=== PATIENT | female | born 1940 | race African-American/Black ===

== ENCOUNTER 2016-06-20 18:04 | Emergency (ER) | payer OTHER ==
--- NOTE | 2016-06-20 18:14 | PDOC ---
Rapid Medical Evaluation Chief Complaint: Lightheaded Time Seen by Provider: 06/20/16 18:13 Medical Evaluation: Allergies Allergy/AdvReac Type Severity Reaction Status Date / Time No Known Allergies Allergy Unverified 06/20/16 18:09 03 18:13 I have performed a brief in-person evaluation of this patient. The patient presents with a chief complaint of: dizziness with standing, hx of vertigo and took meclizine yesterday eith mod effect Pertinent physical exam findings: none, bp 185/90, I have ordered the following: cbc, comp mag, ua, ekg, cardiac profile The patient will proceed to the ED for further evaluation. 06/20/16 18:17
[2016-06-20 18:16] VITALS: TEMP 98; BMI 30.1
[2016-06-20 18:41] LABS: EOSINOPHIL 0.6 % (0-4.5); MCH 30.3 pg (25.7-33.7); MCHC 32.7 g/dl (32.0-36.0); MEAN CELL VOLUME 92.5 fl (80-96); MEAN PLT VOLUME 8.5 fl (7.5-11.1); NEUTROPHILS 56.3 % (42.8-82.8); PLATELET COUNT 215 K/MM3 (134-434); RDW 14.8 % (11.6-15.6); WHITE BLOOD COUNT 8.9 K/mm3 (4.0-10.0)
[2016-06-20 19:04] LABS: ANION GAP 7 (8-16); CO2 29 mmol/L (21-32); CREATININE 0.9 mg/dL (0.55-1.02); GLUCOSE,RANDOM 94 mg/dL (74-106); MAGNESIUM 1.8 mg/dL (1.8-2.4); SGOT/AST 16 U/L (15-37); SGPT/ALT 26 U/L (12-78)
[2016-06-20 19:08] LABS: ALK PHOS 73 U/L (45-117); BILIRUBIN,TOTAL 0.4 mg/dL (0.2-1.0); TOT PROT 7.7 g/dl (6.4-8.2); TROPONIN I < 0.02 ng/ml (0.00-0.05)
[2016-06-20] MEDS ORDERED: MECLIZINE HCL 25 MG TABLET (FP) PO ONE (19:30)
[2016-06-20] MEDS ORDERED: METOPROLOL TARTRATE 50 MG TABLET (FP) PO ONE (19:30)
[2016-06-20 19:33] LABS: URINE APPEARANCE CLEAR; URINE BILIRUBIN NEGATIVE (NEGATIVE); URINE BLOOD NEGATIVE (NEGATIVE); URINE COLOR STRAW; URINE GLUCOSE (UA) NEGATIVE (NEGATIVE); URINE KETONE NEGATIVE (NEGATIVE); URINE LEUK ESTERASE NEGATIVE (NEGATIVE); URINE NITRITE NEGATIVE (NEGATIVE); URINE UROBILINOGEN NEGATIVE E.U./dl (0.2-1.0)
[2016-06-20] MEDS ORDERED: METOPROLOL TARTRATE 50 MG TABLET (FP) ONE (19:40)
[2016-06-20] MEDS ORDERED: MECLIZINE HCL 25 MG TABLET (FP) ONE (19:40)
--- NOTE | 2016-06-20 19:47 | PDOC ---
History of Present Illness - General History Source: Patient Exam Limitations: No Limitations - History of Present Illness Initial Comments: 06/20/16 19:48 The patient is a 75 year old female, with a significant past medical history of TIA, seizures, COPD, hypertension, hyperlipidemia, and diabetes, who presents to the emergency department complaining of dizziness since yesterday. The patient reports she woke up at around 06:30 yesterday morning to go to the bathroom, when suddenly she began to feel dizzy. She describes her dizziness as if the room was spinning. She states it took her approximately 20 minutes get up from her seat. The patient reports her dizziness has worsened today, and is exacerbated upon standing or sitting up. She reports decreased appetite since the onset of her symptoms. The patient reports similar episodes in the past. She states she took meclizine yesterday with moderate relief of symptoms. The patient presents to the ED hypertensive, with a bp of 185/90. The patient admits she has not been compliant with her blood pressure medications. The patient reports intermittent neck cramps. The patient denies any chest pain, shortness of breath, diaphoresis, or palpitations. The patient denies any cough , headache, fever, or chills. The patient denies any nausea, vomiting, diarrhea , or constipation. The patient denies any dysuria, hematuria, frequency, or urgency. The patient denies any recent travel or sick contacts. Allergies: None reported. Past Surgical History: Prolapsed bladder, left inner ear surgery Social History: Former smoker(Quit 2015). Denies alcohol or drug use. PCP: Dr. Merino <Cody Bass - Last Filed: 06/20/16 22:18> <Regine Mcintosh - Last Filed: 06/21/16 05:39> - General Chief Complaint: Lightheaded Stated Complaint: NAUSEA/DIZZY Time Seen by Provider: 06/20/16 18:13 Past History <Cody Bass - Last Filed: 06/20/16 22:18> - Past Medical History Anemia: No Asthma: No Cancer: No Cardiac Disorders: No CVA: No COPD: No CHF: No Diabetes: Yes GI Disorders: No Disorders: Yes (PROLAPSED BLADDER) HTN: Yes Hypercholesterolemia: Yes Liver Disease: No Seizures: No Thyroid Disease: No - Surgical History Abdominal Surgery: No Appendectomy: No Cardiac Surgery: No Cholecystectomy: No GI Surgery: Yes (prolapsed bladder) Lung Surgery: No Neurologic Surgery: No Orthopedic Surgery: No - Psycho/Social/Smoking Cessation Hx Anxiety: No Suicidal Ideation: No Smoking History: Never smoked Have you smoked in the past 12 months: No If you are a former smoker, when did you quit?: 1 year Information on smoking cessation initiated: No Hx Alcohol Use: No Drug/Substance Use Hx: No Substance Use Type: Marijuana Hx Substance Use Treatment: No <Regine Mcintosh - Last Filed: 06/21/16 05:39> - Past Medical History Allergies/Adverse Reactions: Allergies Allergy/AdvReac Type Severity Reaction Status Date / Time No Known Allergies Allergy Unverified 06/20/16 18:09 Home Medications: Ambulatory Orders Aspirin [ASA -] 81 mg PO DAILY 10/17/14 Enalapril Maleate [Vasotec -] 20 mg PO DAILY 10/17/14 Hydrochlorothiazide [Hctz -] 25 mg PO DAILY 10/17/14 Metformin HCl [Glucophage] 500 mg PO BID 10/17/14 Metoprolol Succinate [Toprol XL -] 50 mg PO BID 10/17/14 Simvastatin [Zocor -] 40 mg PO DAILY 10/17/14 Levetiracetam [Keppra -] 250 mg PO BID #60 tablet 10/18/15 Meclizine HCl [Antivert -] 32 mg PO QID #28 tablet 06/20/16 Review of Systems - Review of Systems Able to Perform ROS?: Yes Comments:: 06/20/16 19:48 GENERAL/CONSTITUTIONAL: No fever or chills. No weakness. HEAD, EYES, EARS, NOSE AND THROAT: No change in vision. No ear pain or discharge. No sore throat. CARDIOVASCULAR: No chest pain or shortness of breath. RESPIRATORY: No cough, wheezing, or hemoptysis. GASTROINTESTINAL: No nausea, vomiting, diarrhea or constipation. GENITOURINARY: No dysuria, frequency, or change in urination. MUSCULOSKELETAL: +Neck cramps. No joint or muscle swelling or pain. No back pain. SKIN: No rash NEUROLOGIC: +Vertigo, +dizziness. No headache, loss of consciousness, or change in strength/sensation. ENDOCRINE: No increased thirst. No abnormal weight change. HEMATOLOGIC/LYMPHATIC: No anemia, easy bleeding, or history of blood clots. ALLERGIC/IMMUNOLOGIC: No hives or skin allergy. <Cody Bass - Last Filed: 06/20/16 22:18> *Physical Exam - Vital Signs Last Vital Signs Temp Pulse Resp BP Pulse Ox 98.0 F 86 18 185/90 99 06/20/16 18:09 06/20/16 18:09 06/20/16 18:09 06/20/16 18:09 06/20/16 18:38 - Physical Exam Comments: 06/20/16 19:49 GENERAL: Awake, alert, and fully oriented, in no acute distress. Afebrile. Hypertensive. HEAD: No signs of trauma EYES: PERRLA, EOMI, sclera anicteric, conjunctiva clear ENT: Left TM abnormal s/p operation in July 2015. Nares patent, oropharynx clear without exudates. Moist mucosa NECK: Normal ROM, supple, no lymphadenopathy, JVD, or masses LUNGS: Breath sounds equal, clear to auscultation bilaterally. No wheezes, and no crackles HEART: Regular rate and rhythm, normal S1 and S2, no murmurs, rubs or gallops ABDOMEN: Soft, nontender, normoactive bowel sounds. No guarding, no rebound. No masses EXTREMITIES: Normal range of motion, no edema. No clubbing or cyanosis. No cords, erythema, or tenderness NEUROLOGICAL: Cranial nerves II through XII grossly intact. Normal speech, normal gait SKIN: Warm, Dry, normal turgor, no rashes or lesions noted. <Cody Bass - Last Filed: 06/20/16 22:18> - Vital Signs Last Vital Signs Temp Pulse Resp BP Pulse Ox 98.0 F 86 18 185/90 99 06/20/16 18:09 06/20/16 18:09 06/20/16 18:09 06/20/16 18:09 06/20/16 18:38 <Regine Mcintosh - Last Filed: 06/21/16 05:39> Heart Score/ECG Review - ECG Impressions Comment:: 06/20/16 20:42 Vent. Rate: 81 bpm IMPRESSION: Normal sinus rhythm. <Cody Bass - Last Filed: 06/20/16 22:18> ED Treatment Course - LABORATORY CBC & Chemistry Diagram: 06/20/16 18:30 06/20/16 18:30 - ADDITIONAL ORDERS Additional order review: Laboratory Results 06/20/16 18:30 Sodium 141 Potassium 3.6 Chloride 105 Carbon Dioxide 29 Anion Gap 7 L BUN 11 Creatinine 0.9 Creat Clearance w eGFR > 60 Random Glucose 94 D Calcium 9.0 Magnesium 1.8 Total Bilirubin 0.4 D AST 16 D ALT 26 D Alkaline Phosphatase 73 D Creatine Kinase 94 Troponin I < 0.02 Total Protein 7.7 Albumin 4.0 06/20/16 18:30 RBC 4.06 MCV 92.5 MCHC 32.7 RDW 14.8 MPV 8.5 Neutrophils % 56.3 D Lymphocytes % 35.8 D Monocytes % 6.3 Eosinophils % 0.6 Basophils % 1.0 D - RADIOLOGY Radiograph Interpretation: 06/20/16 22:17 EXAM: CXR INTERPRETED BY: Dr. Freedman REVIEWED BY: Dr. Mcintosh IMPRESSION: No significant interval change or acute lung disease is present - Medications Given in the ED: ED Medications Discontinued Medications Generic Name Dose Route Start Last Admin Trade Name Freq PRN Reason Stop Dose Admin Meclizine HCl 50 mg 06/20/16 19:30 06/20/16 19:47 Antivert - PO 06/20/16 19:31 50 mg ONCE ONE Administration Metoprolol Tartrate 50 mg 06/20/16 19:30 06/20/16 19:47 Lopressor - PO 06/20/16 19:31 50 mg ONCE ONE Administration <Cody Bass - Last Filed: 06/20/16 22:18> - LABORATORY CBC & Chemistry Diagram: 06/20/16 18:30 06/20/16 18:30 - ADDITIONAL ORDERS Additional order review: Laboratory Results 06/20/16 06/20/16 18:30 18:30 WBC 8.9 D RBC 4.06 Hgb 12.3 D Hct 37.6 MCV 92.5 MCHC 32.7 RDW 14.8 Plt Count 215 D MPV 8.5 Neutrophils % 56.3 D Lymphocytes % 35.8 D Monocytes % 6.3 Eosinophils % 0.6 Basophils % 1.0 D Sodium 141 Potassium 3.6 Chloride 105 Carbon Dioxide 29 Anion Gap 7 L BUN 11 Creatinine 0.9 Creat Clearance w eGFR > 60 Random Glucose 94 D Calcium 9.0 Magnesium 1.8 Total Bilirubin 0.4 D AST 16 D ALT 26 D Alkaline Phosphatase 73 D Creatine Kinase 94 Troponin I < 0.02 Total Protein 7.7 Albumin 4.0 06/20/16 18:30 RBC 4.06 MCV 92.5 MCHC 32.7 RDW 14.8 MPV 8.5 Neutrophils % 56.3 D Lymphocytes % 35.8 D Monocytes % 6.3 Eosinophils % 0.6 Basophils % 1.0 D <Regine Mcintosh - Last Filed: 06/21/16 05:39> Medical Decision Making - Medical Decision Making 06/21/16 05:38 Pt comes with positional dizziness. She states that this is her vertigo for which she has been seen in the past. SHe is requesting meds to help her nausea and the room spinning. Pt has normal labs and exam and she will be discharged home with PMD and neurology follow up. Pt was given meclizine. to go home with. <Regine Mcintosh - Last Filed: 06/21/16 05:39> *DC/Admit/Observation/Transfer - Attestations Scribe Attestion: 06/20/16 19:49 Documentation prepared by Cody Bass, acting as medical voucher clerk for Regine Mcintosh MD. <Cody Bass - Last Filed: 06/20/16 22:18> - Discharge Dispostion Admit: No <Regine Mcintosh - Last Filed: 06/21/16 05:39> Diagnosis at time of Disposition: Vertigo - Discharge Dispostion Disposition: HOME Condition at time of disposition: Stable - Prescriptions Prescriptions: Meclizine HCl [Antivert -] 32 mg PO QID #28 tablet - Referrals Referrals: Qing Merino MD [Primary Care Provider] - Bear Campos MD [Staff Physician] - Omid Oneill MD [Non Staff, Medical] - - Patient Instructions Printed Discharge Instructions: DI for Vertigo
[2016-06-20 19:54] LABS: URINE PROTEIN 1+ (NEGATIVE)
[2016-06-20] MEDS ORDERED: FLUCONAZOLE 50 MG TABLET PO ONE (19:59)
[2016-06-20] MEDS ORDERED: FLUCONAZOLE 100 MG TABLET (UD) ONE (20:02)
[2016-06-20] MEDS ORDERED: ENALAPRIL MALEATE 10 MG TABLET (FP) PO ONE (20:45)
[2016-06-20 20:46] VITALS: BP 077/82; PULSE 88
[2016-06-20] MEDS ORDERED: ENALAPRIL MALEATE 5 MG TABLET (FP) ONE (20:48)
[2016-06-20 21:17] LABS: URINE RBC <1 /hpf (0-3); URINE WBC <1 /hpf (3-5)
[2016-06-20 21:18] LABS: URINE BACTERIA MANY /hpf (NONE SEEN)
--- NOTE | 2016-06-23 14:57 | EKG ---
Test Reason : Blood Pressure : / mmHG Vent. Rate : 081 BPM Atrial Rate : 081 BPM P-R Int : 146 ms QRS Dur : 088 ms QT Int : 386 ms P-R-T Axes : 052 044 070 degrees QTc Int : 448 ms NORMAL SINUS RHYTHM MINIMAL VOLTAGE CRITERIA FOR LVH, MAY BE NORMAL VARIANT BORDERLINE ECG WHEN COMPARED WITH ECG OF 16-OCT-2015 15:45, NO SIGNIFICANT CHANGE WAS FOUND Confirmed by NABOR CELESTIN MD ([id number]) on 06/23/2016 2:57:22 PM Referred By: Confirmed By:NABOR CELESTIN MD
== END 2016-06-20 20:58 | disposition home or self-care (01) ==
LOC: JER 18:04
DX: H81.10 Benign paroxysmal vertigo, unspecified ear (principal); I10 Essential (primary) hypertension; E11.9 Type 2 diabetes mellitus without complications; Z79.84 Long term (current) use of oral hypoglycemic drugs; E78.00 Pure hypercholesterolemia, unspecified
CPT/HCPCS: 36415; 71010-TC; 80053; 81003; 81015; 82550; 83735; 84484; 85025; 93005; 93010; 99285-25

== ENCOUNTER 2017-06-25 12:27 | Inpatient (IN) | payer OTHER ==
[2017-06-25 12:32] VITALS: BMI 28.1
--- NOTE | 2017-06-25 14:48 | PDOC ---
History of Present Illness - General Chief Complaint: Pain Stated Complaint: ABD PAIN Time Seen by Provider: 06/25/17 13:18 History Source: Patient Exam Limitations: No Limitations - History of Present Illness Travel History: No Initial Comments: 06/25/17 17:36 The patient is a 76 year old female with history of prolapsed bladder and vagina , DM, IBS, s/p hysterectomy who presents to the ED complaining of 1 day of LLQ pain. States she coughed and subsequently developed LLQ pain. Pain radiates to the suprapubic and RLQ. It is waxing and waning, improved with sitting, worse with movement, rated 10/10 at its worst. The patient states her pain is consistent with her prolapse, but pain is worse in severity. No fever or chills. No nausea, vomiting, or diarrhea. No hematuria or dysuria. No abnormal vaginal bleeding or discharge. Past History - Past Medical History Allergies/Adverse Reactions: Allergies Allergy/AdvReac Type Severity Reaction Status Date / Time No Known Allergies Allergy Unverified 06/25/17 12:32 Home Medications: Ambulatory Orders Aspirin 81 mg PO DAILY 06/25/17 Ferrous Sulfate 325 mg PO BID 06/25/17 Ibuprofen 800 mg PO TID 06/25/17 Levetiracetam [Keppra] 250 mg PO BID 06/25/17 Metoprolol Tartrate [Lopressor -] 50 mg PO BID 06/25/17 Naproxen [Naprosyn -] 250 mg PO BID 06/25/17 Anemia: No Asthma: No Cancer: No Cardiac Disorders: No CVA: No COPD: No CHF: No DVT: No Diabetes: Yes GI Disorders: No Disorders: Yes (PROLAPSED BLADDER/VAGINA) HTN: Yes Hypercholesterolemia: Yes Liver Disease: No Seizures: No Thyroid Disease: No - Surgical History Abdominal Surgery: No Appendectomy: No Cardiac Surgery: No Cholecystectomy: No GI Surgery: Yes (prolapsed bladder) Lung Surgery: No Neurologic Surgery: No Orthopedic Surgery: No - Suicide/Smoking/Psychosocial Hx Smoking History: Never smoked Have you smoked in the past 12 months: No If you are a former smoker, when did you quit?: 1 year Information on smoking cessation initiated: No Hx Alcohol Use: No Drug/Substance Use Hx: No Substance Use Type: Marijuana Hx Substance Use Treatment: No Review of Systems - Review of Systems Able to Perform ROS?: Yes Comments:: 06/25/17 17:37 CONSTITUTIONAL: No reported: Fever, Chills, Diaphoresis, Generalized Weakness, Malaise, Loss of Appetite HEENT: No reported: Rhinorrhea, Nasal Congestion, Throat Pain, Throat Swelling, Difficulty Swallowing, Mouth Swelling, Ear Pain, Eye Pain, Visual Changes CARDIOVASCULAR: No reported: Chest Pain, Syncope, Palpitations, Irregular Heart Rate, Lightheadedness, Peripheral Edema RESPIRATORY: No reported: Cough, Shortness of Breath, SOB with Exertion, Orthopnea, Wheezing , Stridor, Hemoptysis GASTROINTESTINAL: Present: abdominal pain No reported: Abdominal Distension, Nausea, Vomiting, Diarrhea, Constipation, Melena, Hematochezia GENITOURINARY: Present: urinary frequency (chronic) No reported: Dysuria, Urgency, Hesitancy, Flank Pain, Genital Pain MUSCULOSKELETAL: No reported: Myalgia, Arthralgia, Joint Swelling, Back pain, Neck Pain SKIN: No reported: Rash, Itching, Pallor HEMEATOLOGIC/IMMUNOLOGIC: No reported: Easy Bleeding, Easy Bruising, Lymphadenopathy, Frequent infections ENDOCRINE: No reported: Unexplained Weight Gain, Unexplained Weight Loss, Heat Intolerance , Cold Intolerance NEUROLOGIC: No reported: Headache, Focal Weakness, Paresthesias, Vertigo, Lightheadedness, Unsteady Gait, Seizure, Mental Status Changes, Incontinence PSYCHIATRIC: No reported: Anxiety, Depression *Physical Exam - Vital Signs Last Vital Signs Temp Pulse Resp BP Pulse Ox 98.1 F 98 H 18 153/71 98 06/25/17 12:29 06/25/17 12:29 06/25/17 12:29 06/25/17 12:29 06/25/17 12:29 - Physical Exam Comments: 06/25/17 17:37 GENERAL: The patient is awake, alert, and fully oriented, Nontoxic - in no acute distress. HEAD: Normocephalic, atraumatic. EYES: extraocular movements intact, sclera anicteric, conjunctiva clear. ENT: Normal voice, Moist mucous membranes. NECK: Normal range of motion, supple LUNGS: Breath sounds equal, clear to auscultation bilaterally. No wheezes, no rhonchi, no rales. HEART: Regular rate and rhythm, without murmur, rub or gallop. ABDOMEN: +Significant LLQ tenderness. Soft, normoactive bowel sounds. No guarding, no rebound.No CVA tenderness. No signficant abdominal deformity or hernia. EXTREMITIES: Normal range of motion, no edema. No clubbing or cyanosis. No cords, erythema, or tenderness. NEUROLOGICAL: No facial assymetry, Normal speech, PSYCH: Normal mood, normal affect. SKIN: Warm, Dry, normal turgor, ED Treatment Course - LABORATORY CBC & Chemistry Diagram: 07/01/17 07:20 07/01/17 07:20 Medical Decision Making - Medical Decision Making 06/25/17 14:47 76y F hx of prolapsed bladder/vagina hx of sling, tried pessery without improvement presents with LLQ pain. The patient presents with abd pain w/o other associated symptmos on exam pt with localized tenderness to llq ddx hernia vs diverticulitis will ck labs, likely ct abd ua to r/o uti morphine fo rpain 06/25/17 16:47 pt signed out to drl. coulter to fu with ct and reassesss the pt *DC/Admit/Observation/Transfer Diagnosis at time of Disposition: Diverticulitis - Discharge Dispostion Condition at time of disposition: Stable - Referrals - Patient Instructions - Post Discharge Activity
[2017-06-25 16:30] LABS: URINE APPEARANCE SLCLOUDY; URINE BILIRUBIN NEGATIVE (NEGATIVE); URINE BLOOD NEGATIVE (NEGATIVE); URINE COLOR YELLOW; URINE GLUCOSE (UA) NEGATIVE (NEGATIVE); URINE KETONE TRACE (NEGATIVE); URINE LEUK ESTERASE NEGATIVE (NEGATIVE); URINE NITRITE POSITIVE (NEGATIVE); URINE PROTEIN NEGATIVE (NEGATIVE); URINE UROBILINOGEN NEGATIVE mg/dL (0.2-1.0)
[2017-06-25] MEDS ORDERED: morphine CARPU-JECT 4 MG/1 ML DISP.SYRIN IVPUSH ONE (17:19)
[2017-06-25 17:24] LABS: BASO % 0.2 % (0-2.0); HEMATOCRIT 36.5 % (32.4-45.2); HEMOGLOBIN 12.2 GM/dL (10.7-15.3); LYMPH % 11.1 % (8-40); MCH 31.8 pg (25.7-33.7); MCHC 33.3 g/dl (32.0-36.0); MEAN CELL VOLUME 95.5 fl (80-96); MEAN PLT VOLUME 9.4 fl (7.5-11.1); MONO % 3.4 % (3.8-10.2); NEUT % 85.3 % (42.8-82.8); PLATELET COUNT 200 K/MM3 (134-434); RBC 3.82 M/mm3 (3.60-5.2); RDW 14.5 % (11.6-15.6); WHITE BLOOD COUNT 13.1 K/mm3 (4.0-10.0)
[2017-06-25 17:25] LABS: ALBUMIN 3.7 g/dl (3.4-5.0); ANION GAP 10 (8-16); BLOOD UREA NITROGEN 10 mg/dL (7-18); CALCIUM 8.8 mg/dL (8.5-10.1); CHLORIDE 106 mmol/L (98-107); CO2 24 mmol/L (21-32); CREATININE 0.8 mg/dL (0.55-1.02); GLUCOSE,RANDOM 86 mg/dL (74-106); POTASSIUM 3.1 mmol/L (3.5-5.1); SGOT/AST 9 U/L (15-37); SGPT/ALT 14 U/L (12-78); SODIUM 140 mmol/L (136-145)
[2017-06-25 17:27] LABS: ALK PHOS 69 U/L (45-117); BILIRUBIN,TOTAL 0.7 mg/dL (0.2-1.0); TOT PROT 7.4 g/dl (6.4-8.2)
[2017-06-25 17:47] LABS: EPI CELLS RARE /HPF (FEW); URINE BACTERIA MANY /hpf (NONE SEEN); URINE MUCUS RARE
[2017-06-25] MEDS ORDERED: CEFTRIAXONE 2 GM in DEXTROSE 5%-WATER - 100 ML IVPB ONE (18:08)
[2017-06-25] MEDS ORDERED: morphine SULFATE 4 MG/ML VIAL ONE (18:30)
[2017-06-25] MEDS ORDERED: CEFTRIAXONE 2 GM/100 ML BAG IVPB ONE (18:30)
[2017-06-25] MEDS ORDERED: SODIUM CHLORIDE 1,000 ML IV STA (21:41)
[2017-06-25] MEDS ORDERED: SODIUM CHLORIDE 1,000 ML IV SCH ×2 (22:15→23:42)
--- NOTE | 2017-06-25 22:21 | HP ---
CHIEF COMPLAINT: abdominal pain PCP: Dr. Frederick ([facility]) HISTORY OF PRESENT ILLNESS: 76 year old female with a hx of diabetes mellitus, prolapsed bladder and vagina , irritable bowel presents for a 1 day hx of abdominal pain. She states that the pain started yesterday after she had a coughing spell in the morning. She felt that her vagina had prolapsed so she sat down to alleviate the problem. The pain persisted for the entire day into the following day. She took ibuprofen for the pain which did not help. This morning the pain persisted and so the patient arrived at the ED for evaluation. In the ED she was at a 10/10 pain on arrival. She received levoquin/flagyl in the ED. She states that the pain has significantly improved since first arriving and is at a 5/10. She states that she is passing gas and had a bowel movement (solid, nonbloody or melenic) in the ED. Additionally she states that she has some urinary retention which she has had for many months. Denies overt fevers, chills, nausea, vomiting , diarrhea, chest pain or shortness of breath. ER course was notable for: (1) WBC 13.1 (2) HR 98 (3) K 3.1 PAST MEDICAL HISTORY: diabetes mellitus, prolapsed bladder and vagina, irritable bowel PAST SURGICAL HISTORY: tubal ligation Social History: Smoking: never Alcohol: none Drugs: marijuana Allergies No Known Allergies Allergy (Unverified 06/25/17 12:32) HOME MEDICATIONS: Home Medications Medication Instructions Recorded Unobtainable [Unobtainable] 06/25/17 REVIEW OF SYSTEMS CONSTITUTIONAL: Absent: fever, chills, diaphoresis, generalized weakness, malaise, loss of appetite, weight change HEENT: Absent: rhinorrhea, nasal congestion, throat pain, throat swelling, difficulty swallowing, mouth swelling, ear pain, eye pain, visual changes CARDIOVASCULAR: Absent: chest pain, syncope, palpitations, irregular heart rate, lightheadedness , peripheral edema RESPIRATORY: Absent: cough, shortness of breath, dyspnea with exertion, orthopnea, wheezing, stridor, hemoptysis GASTROINTESTINAL: abdominal pain Absent: , abdominal distension, nausea, vomiting, diarrhea, constipation, melena , hematochezia GENITOURINARY: Absent: dysuria, frequency, urgency, hesitancy, hematuria, flank pain, genital pain MUSCULOSKELETAL: Absent: myalgia, arthralgia, joint swelling, back pain, neck pain SKIN: Absent: rash, itching, pallor HEMATOLOGIC/IMMUNOLOGIC: Absent: easy bleeding, easy bruising, lymphadenopathy, frequent infections ENDOCRINE: Absent: unexplained weight gain, unexplained weight loss, heat intolerance, cold intolerance NEUROLOGIC: Absent: headache, focal weakness or paresthesias, dizziness, unsteady gait, seizure, mental status changes, bladder or bowel incontinence PSYCHIATRIC: Absent: anxiety, depression, suicidal or homicidal ideation, hallucinations. PHYSICAL EXAMINATION Vital Signs - 24 hr 06/25/17 12:29 Temperature 98.1 F Pulse Rate 98 H Respiratory 18 Rate Blood Pressure 153/71 O2 Sat by Pulse 98 Oximetry (%) GENERAL: A&O x 3, no acute distress CARDS: Systolic murmur appreciated in 2nd R intercostal space LUNGS: CTA, no wheezes ABDOMEN: soft, tender to palpation in LUQ and LLQ, diminished bowel sounds NEURO: CN II-XII intact, no focal deficits EXTREMITIES: pulses 2+ b/l, motor strength 5/5, no peripheral edema Laboratory Results - last 24 hr 06/25/17 06/25/17 06/25/17 16:16 16:33 16:33 WBC 13.1 H D RBC 3.82 Hgb 12.2 Hct 36.5 MCV 95.5 MCH 31.8 MCHC 33.3 RDW 14.5 Plt Count 200 MPV 9.4 D Neutrophils % 85.3 H D Lymphocytes % 11.1 D Monocytes % 3.4 L Eosinophils % 0.0 D Basophils % 0.2 Sodium 140 Potassium 3.1 L Chloride 106 Carbon Dioxide 24 Anion Gap 10 BUN 10 Creatinine 0.8 Creat Clearance w eGFR > 60 Random Glucose 86 Calcium 8.8 Total Bilirubin 0.7 D AST 9 L ALT 14 Alkaline Phosphatase 69 Total Protein 7.4 Albumin 3.7 Urine Color Yellow Urine Appearance Slcloudy Urine pH 5.0 D Ur Specific [place] 1.009 Urine Protein Negative Urine Glucose (UA) Negative Urine Ketones Trace H Urine Blood Negative Urine Nitrite Positive Urine Bilirubin Negative Urine Urobilinogen Negative Ur Leukocyte Esterase Negative Urine WBC (Auto) 1 Urine RBC (Auto) None Ur Epithelial Cells Rare Urine Bacteria Many Urine Mucus Rare IMAGING: CT Abd/Pelvis (06/25): Soft tissue stranding suggestive of edema is seen interposed between the descending colon and abdominal wall centered at the level of the abdominopelvic junction. Several associated punctate foci of extraluminal air/gas are noted suggestive of focal perforation. Note is also made of apparent concentric wall edema involving a jejunal bowel loop over length of approximately 10 cm adjacent to the previously described pericolonic pathology. There is associated mild proximal small bowel obstruction. ASSESSMENT/PLAN: 76 year old female with a history of DM, IBS, hysterectomy, prolapsed bladder/ vagina presented to the hospital with LLQ abdominal pain and admitted for treatment of perforated diverticulitis #Sepsis 2/2 Perforated Diverticulitis: improved compared to initial presentation , elevated WBC/tachycardia -NPO for now, will get surgery to evaluate in the AM -surgical consult Dr. Lang appreciated; surgeon was contacted and recommended to keep NPO and continue abx -consider gastroenterology consultation in the morning -draw blood cultures and f/u in 24 hours -Levoquin 750 QD -Flagyl 500 Q6h -lactate level, trend if elevated -IVF hydration @ 100cc/hr w/ NS #Hypokalemia: potassium 3.1 -Kdur 40meqs -recheck potassium in AM -check magnesium #Urinary Retention: patient reports urinary retention and self-catheterizes -insert rogers catheter #Diabetes -BGMs -ISS #Hypertension -continue metoprolol 50mg PO BID #FEN -IV NS @ 100cc/hr -replete potassium, recheck labs in AM, check magnesium -NPO for surgical evaluation in AM #Prophylaxis -heparin 5000 subq TID #Disposition -admit to med-surg Visit type - Emergency Visit Emergency Visit: Yes ED Registration Date: 06/25/17 Care time: The patient presented to the Emergency Department on the above date and was hospitalized for further evaluation of their emergent condition. - New Patient This patient is new to me today: Yes Date on this admission: 06/26/17 - Critical Care Critical Care patient: No Hospitalist Screening - Colonoscopy Questionnaire Colonoscopy Questionnaire: Colonoscopy Questionnaire - Patient: 50 - 75 years old and never had a screening colonoscopy: Unknown History of colon or rectal polyps, or CA: Unknown History of IBD, Crohn's disease or UC: Unknown History of abdominal radiation therapy as a child: Unknown - Relative: 1 with colon or rectal CA, or polyps at age 60 or younger: Unknown Colon or rectal CA diagnosed at age 45 or younger: Unknown Multiple relatives with colon or rectal CA: Unknown - Outcome: Screening Result: Negative Screen
--- NOTE | 2017-06-25 22:27 | PDOC ---
*Physical Exam - Vital Signs Last Vital Signs Temp Pulse Resp BP Pulse Ox 98.1 F 98 H 18 153/71 98 06/25/17 12:29 06/25/17 12:29 06/25/17 12:29 06/25/17 12:29 06/25/17 12:29 - Physical Exam Comments: 06/25/17 22:22 Gen: WA, NAD Pulm: CTAB CV: RRR, no MRG Abd: +LLQ ttp, no rebound or guarding Ext: FROM, ambulatory, 2+ pulses Skin: warm, WP ED Treatment Course - LABORATORY CBC & Chemistry Diagram: 06/25/17 16:33 06/25/17 16:33 - ADDITIONAL ORDERS Additional order review: Laboratory Results 06/25/17 06/25/17 16:33 16:16 Sodium 140 Potassium 3.1 L Chloride 106 Carbon Dioxide 24 Anion Gap 10 BUN 10 Creatinine 0.8 Creat Clearance w eGFR > 60 Random Glucose 86 Calcium 8.8 Total Bilirubin 0.7 D AST 9 L ALT 14 Alkaline Phosphatase 69 Total Protein 7.4 Albumin 3.7 Urine Color Yellow Urine Appearance Slcloudy Urine pH 5.0 D Ur Specific Newman 1.009 Urine Protein Negative Urine Glucose (UA) Negative Urine Ketones Trace H Urine Blood Negative Urine Nitrite Positive Urine Bilirubin Negative Urine Urobilinogen Negative Ur Leukocyte Esterase Negative Urine WBC (Auto) 1 Urine RBC (Auto) None Ur Epithelial Cells Rare Urine Bacteria Many Urine Mucus Rare 06/25/17 16:33 RBC 3.82 MCV 95.5 MCHC 33.3 RDW 14.5 MPV 9.4 D Neutrophils % 85.3 H D Lymphocytes % 11.1 D Monocytes % 3.4 L Eosinophils % 0.0 D Basophils % 0.2 - Medications Given in the ED: ED Medications Discontinued Medications Generic Name Dose Route Start Last Admin Trade Name Freq PRN Reason Stop Dose Admin Ceftriaxone Sodium 2 gm/ 100 mls @ 200 mls/hr 06/25/17 18:08 06/25/17 18:37 Dextrose IVPB 06/25/17 18:37 200 mls/hr ONCE ONE Administration Morphine Sulfate 4 mg 06/25/17 17:19 06/25/17 18:37 Morphine Injection - IVPUSH 06/25/17 17:20 Not Given ONCE ONE Medical Decision Making - Medical Decision Making 06/25/17 22:23 Received care on patient from Dr. He at 1700. Patient presents to the emergency department with 1 day of left lower quadrant pain, was pending CT scan. Labs remarkable for the leukocytosis to 13 and hypokalemia to 3.1. Urinalysis also nitrite positive for which the patient got ceftriaxone. On reassessment, patient continues to have left lower quadrant tenderness to palpation, declined morphine for pain control and requests Tylenol. CT scan resulted with focal perforated diverticulitis with mild SBO. Case discussed with Dr. Lang, she recommends the patient remain NPO and she will see her in the morning. Levaquin and Flagyl have been ordered for the patient as well as fluids. Patient has been admitted to for further mgmt. Case discussed in detail with admitting physician including history, physical exam and ancillary studies. Admitting physician has assumed care for the patient, will follow all pending diagnostics and will complete the evaluation and treatment. *DC/Admit/Observation/Transfer Diagnosis at time of Disposition: Diverticulitis - Discharge Dispostion Condition at time of disposition: Stable Admit: Yes - Referrals - Patient Instructions - Post Discharge Activity - Attestations Physician Attestion: 06/25/17 22:27 I, Dr. Tere Cotter MD, attest that this document has been prepared under my direction and personally reviewed by me in its entirety. I further attest, that it accurately reflects all work, treatment, procedures and medical decision -making performed by me.
[2017-06-26] MEDS ORDERED: METOPROLOL TARTRATE 50 MG TABLET (FP) ONE (00:57)
[2017-06-26] MEDS ORDERED: levETIRAcetam 500 MG TABLET (FP) PO ONE (00:57)
[2017-06-26] MEDS ORDERED: FERROUS SO4 325 MG TABLET (FP) ONE (00:58)
[2017-06-26] MEDS: levETIRAcetam 250 MG TABLET (FP) PO SCH ×3 (01:07→21:04)
[2017-06-26] MEDS: KCL 10 MEQ IVPB 10 MEQ/100 ML INFUS.BAG IVPB SCH ×2 (01:07→03:21)
[2017-06-26] MEDS: FERROUS SO4 325 MG TABLET (FP) PO SCH ×3 (01:07→21:04)
[2017-06-26] MEDS: METOPROLOL TARTRATE 50 MG TABLET (FP) PO SCH ×3 (01:07→21:04)
[2017-06-26] MEDS ORDERED: POTASSIUM CHLORIDE TABS 20 MEQ TABLET.ER (FP) PO ONE ×2 (02:15→03:17)
--- NOTE | 2017-06-26 03:38 | PN ---
Teaching Attending Note Name of Resident: Eduard Salinas ATTENDING PHYSICIAN STATEMENT I saw and evaluated the patient. I reviewed the resident's note and discussed the case with the resident. I agree with the resident's findings and plan as documented. SUBJECTIVE: 76F with pmh prolapse bladder prolapse vagina DM presents with worsening LLQ pain OBJECTIVE: Resting, non toxic appearing Abd: soft, tenderness diffusely worst in in the LLQ, with guarding CTAP: focal perforation of descending colon with proximal mild SBO, mild bladder distention WBC 13 K 3.1 ASSESSMENT AND PLAN: 76F with focal perforation divurtculitis, Surgery has been consulted and recommended conservative maangement and re-evaluation in the AM keep NPO IV abx IVF replete potassium rogers catheter for urinary retention careful monitoring - if she demonstrates any sign of deterioration will re- evaluate with surgery for more urgent intervention
[2017-06-26] MEDS ORDERED: INSULIN SLIDING SCALE (NOVOLOG) 1 VIAL SQ SCH (07:00)
[2017-06-26 08:40] LABS: HEMATOCRIT 36.8 % (32.4-45.2); HEMOGLOBIN 11.9 GM/dL (10.7-15.3); MCH 30.9 pg (25.7-33.7); MCHC 32.4 g/dl (32.0-36.0); MEAN CELL VOLUME 95.4 fl (80-96); MEAN PLT VOLUME 8.8 fl (7.5-11.1); PLATELET COUNT 201 K/MM3 (134-434); RBC 3.85 M/mm3 (3.60-5.2); RDW 14.4 % (11.6-15.6); WHITE BLOOD COUNT 12.2 K/mm3 (4.0-10.0)
[2017-06-26 08:51] LABS: INR 1.43 (0.82-1.09); PROTHROMBIN TIME (PATIENT) 16.2 SEC (9.98-11.88)
[2017-06-26 09:03] LABS: ALBUMIN 3.3 g/dl (3.4-5.0); ANION GAP 9 (8-16); BILIRUBIN,TOTAL 0.7 mg/dL (0.2-1.0); BLOOD UREA NITROGEN 10 mg/dL (7-18); CALCIUM 8.4 mg/dL (8.5-10.1); CHLORIDE 106 mmol/L (98-107); CO2 26 mmol/L (21-32); CREATININE 0.8 mg/dL (0.55-1.02); GLUCOSE,RANDOM 93 mg/dL (74-106); MAGNESIUM 1.9 mg/dL (1.8-2.4); PHOSPHOROUS 2.9 mg/dL (2.5-4.9); POTASSIUM 3.7 mmol/L (3.5-5.1); SGOT/AST 9 U/L (15-37); SGPT/ALT 11 U/L (12-78); SODIUM 141 mmol/L (136-145); TOT PROT 6.9 g/dl (6.4-8.2)
[2017-06-26 09:04] LABS: ALK PHOS 69 U/L (45-117)
[2017-06-26] MEDS ORDERED: PT OWN MED DRAWER 7, Y5N ONE ×2 (09:28→15:34)
[2017-06-26] MEDS ORDERED: ASPIRIN 81 MG CHEWABLE TABLETS PO SCH (10:00)
[2017-06-26] MEDS ORDERED: HYDROCHLOROTHIAZIDE 25 MG TABLET (FP) PO SCH (10:00)
--- NOTE | 2017-06-26 10:36 | EKG ---
Test Reason : Blood Pressure : / mmHG Vent. Rate : 103 BPM Atrial Rate : 103 BPM P-R Int : 146 ms QRS Dur : 092 ms QT Int : 346 ms P-R-T Axes : 050 048 094 degrees QTc Int : 453 ms SINUS TACHYCARDIA BIATRIAL ENLARGEMENT LEFT VENTRICULAR HYPERTROPHY WITH REPOLARIZATION ABNORMALITY NONSPECIFIC ST ABNORMALITY Confirmed by GRECIA PITTS MD ([id number]) on 06/26/2017 10:36:22 AM Referred By: Confirmed By:GRECIA PITTS MD
[2017-06-26] MEDS: POTASSIUM CHLORIDE 10 MEQ in DEXTROSE 5%-NORMAL SALINE 1,000 ML IVPB SCH ×3 (10:43→23:04)
[2017-06-26] MEDS ORDERED: ENOXAPARIN NA (PORCINE) 30 MG/0.3 ML DISP.SYRIN SQ SCH (10:45)
--- NOTE | 2017-06-26 10:47 | CONSULT ---
Consult Consult Specialty:: General Surgery Referred by:: Tere Cotter Reason for Consultation:: diverticulitis with SB inflammation and mild SBO - History of Present Illness Chief Complaint: LLQ pain History of Present Illness: 76yo F with HTN, HLD, DM, h/o pelvic organ prolapse s/p hysterectomy and AP repair 2006, redo AP repair with mesh 2007, recurrent cystocele repair with partial removal of vaginal mesh and autologous rectus fascial graft 10/25 with SP tube x 1wk postop, managing recurrent prolapse conservatively, has had some LLQ pain since last week, but thought it was mainly her prolapse discomfort. She had an appt for learning urinary self-cathing Wed and was going to speak with her doctor about the pain, but they cancelled the appointment and rescheduled for next week. Then she coughed while standing at home (usually sits when able to because of prolapse), and felt significant LLQ pain, which did not improve with ibuprofen, and came to hospital. In ER, she was afebrile, with wbc 13, and CT showed an area of inflammation just under LLQ abdominal wall with few locules of air suggestive of microperforation, inflamed/thickened jejunal loop adjacent with associated proximal mild SBO with dilated, fluid- filled SB loops. Colon wall not markedly thickened. Bladder very distended. She was started on IVF and antibiotics, admitted to medicine, had Jeff placed, K+ repleted and labs repeated this am. She reports her pain is not present unless she palpates the area, just somewhat uncomfortable. It is ammonia still operator though. She has been up to the bathroom and having frequent stools here, getting more loose from soft, formed. No nausea or vomiting. Surgery is consulted to evaluate. - History Source History Provided By: Patient, Medical Record Limitations to Obtaining History: No Limitations - Past Medical History RETAIL BUYER: Yes: Seizure (last year - was told had one and didn't know (on Keppra but only takes daily)), Vertigo Cardio/Vascular: Yes: HTN, Hyperlipdemia Pulmonary: Yes: COPD (former smoker (pt denies having)) Gastrointestinal: Yes: Constipation, Diverticulosis, Irritable Bowel Disease Renal/: Yes: Other (urinary retention and bladder prolapse) Reproductive: Yes: Postmenopausal, Other (pelvic organ prolapse (s/p hyst and mult repairs)) ...: No Musculoskeletal: Yes: Chronic low back pain Endocrine: Yes: Diabetes Mellitus - Past Surgical History Past Surgical History: Yes: Colonoscopy (last ~5 yrs ago), Hysterectomy (2006 with cystocele repair), Tubal Ligation () Additional Surgical History: L ear surgery; (all done vaginally) hysterectomy with AP repair [facility] 2006 (mesh litigation); redo AP repair with mesh 2007; 2014 (spinal anes, Dr. Agarwal) cystocele anterior repair with autologous rectus fascial harvest & graft, removal of portion of vaginal mesh, cystoscopy, suprapubic catheter (out 1 week later) - Alcohol/Substance Use Hx Alcohol Use: Yes (wine occas; used to drink more heavily weekends) History of Substance Use: reports: Marijuana (daily since teens) - Smoking History Smoking history: Former smoker Have you smoked in the past 12 months: No Aproximately how many cigarettes per day: 6 (~20 pk-yr hx) If you are a former smoker, when did you quit?: 07/2014 - Social History ADL: Independent Home Medications - Allergies Allergies/Adverse Reactions: Allergies Allergy/AdvReac Type Severity Reaction Status Date / Time No Known Allergies Allergy Unverified 06/25/17 12:32 - Home Medications Home Medications: Ambulatory Orders Aspirin 81 mg PO DAILY 06/25/17 Enalapril Maleate [Vasotec] 20 mg PO DAILY 06/25/17 Ferrous Sulfate 325 mg PO BID 06/25/17 Gabapentin 100 mg PO HS 06/25/17 Hydrochlorothiazide [Hctz -] 25 mg PO DAILY 06/25/17 Ibuprofen 800 mg PO TID 06/25/17 Levetiracetam [Keppra] 250 mg PO BID 06/25/17 Meclizine HCl 25 mg PO Q8H 06/25/17 Metformin HCl 500 mg PO BID 06/25/17 Metoprolol Tartrate [Lopressor -] 50 mg PO BID 06/25/17 Naproxen [Naprosyn -] 250 mg PO BID 06/25/17 Simvastatin 40 mg PO DAILY 06/25/17 Home Medications (free text): per pt, doctor took her OFF METFORMIN, simvastatin and ENALAPRIL in January; she does not take gabapentin or meclizine , takes levetiracetam DAILY not bid; only uses ibuprofen prn sometimes once a day OR naproxen Family Disease History - Family Disease History Family Disease History: CA: Father (unknown type), Mother (skin, of at 82) Other Family History: grandson had renal transplant; granddaughter had ovarian CA at 24 Review of Systems - Review of Systems Constitutional: denies: Chills, Fever, Loss of Appetite Eyes: reports: Other (wears bifocals). denies: Recent Change in Vision HENT: reports: Hearing Loss (left ear, has hearing aid but doesn't use if often) . denies: Difficult Swallowing, Throat Pain Neck: reports: Swollen Glands (occasionally). denies: Tenderness Cardiovascular: reports: Chest Pain (occasionally has twinge (seconds) of pain across chest with tingling, goes away very quickly), Edema (ankle/leg swelling sometimes). denies: Palpitations Respiratory: reports: Cough (few weeks ago). denies: SOB Gastrointestinal: reports: Abdominal Pain (with hpi), Constipation, Indigestion (heartburn frequently (uses club soda, not medications)), Other (fecal incontinence at times). denies: Diarrhea, Nausea, Vomiting Genitourinary: reports: Frequency, Incontinence, Urgency, Other (urinary retention, bladder prolapse). denies: Burning, Dysuria Musculoskeletal: reports: Back Pain. denies: Joint Pain, Muscle Pain Integumentary: denies: Change in Color, Rash Neurological: reports: Headache (occ in mornings), Seizure (last/only was last year (didn't know)). denies: Dizziness (none recently) Physical Exam Vital Signs: Vital Signs Temperature 99 F 06/26/17 06:43 Pulse Rate 92 H 06/26/17 06:43 Respiratory Rate 18 06/26/17 06:43 Blood Pressure 142/61 06/26/17 06:43 O2 Sat by Pulse Oximetry (%) 96 06/26/17 05:09 Constitutional: Yes: Well Nourished, No Distress, Calm Eyes: Yes: Conjunctiva Clear, EOM Intact HENT: Yes: Atraumatic, Normocephalic Neck: Yes: Supple, Trachea Midline Cardiovascular: Yes: Tachycardia (mild). No: Pulse Irregular, Murmur Respiratory: Yes: Regular, CTA Bilaterally Gastrointestinal: Yes: Soft, Tenderness (LLQ without guarding but very tender, less LUQ and RLQ, mild epigastric, periumbilical, not really RUQ), Tenderness, Epigastrium (mild). No: Distention ...Rectal Exam: Yes: Deferred Renal/: Yes: Jeff Present. No: CVA Tenderness - Left, CVA Tenderness - Right , Hematuria Musculoskeletal: No: Joint Stiffness, Joint Swelling Extremities: No: Cool, Cyanosis Edema: No Peripheral Pulses WNL: No (pedal pulses not clearly palpable, ant tibial present , radial normal) Integumentary: No: Jaundice, Rash Neurological: Yes: Alert, Oriented Psychiatric: Yes: Alert, Oriented Labs: CBC, BMP 06/26/17 08:00 06/26/17 08:00 CMP Sodium 141 mmol/L (136-145) 06/26/17 08:00 Potassium 3.7 mmol/L (3.5-5.1) 06/26/17 08:00 Chloride 106 mmol/L (98-107) 06/26/17 08:00 Carbon Dioxide 26 mmol/L (21-32) 06/26/17 08:00 Anion Gap 9 (8-16) 06/26/17 08:00 BUN 10 mg/dL (7-18) 06/26/17 08:00 Creatinine 0.8 mg/dL (0.55-1.02) 06/26/17 08:00 Creat Clearance w eGFR > 60 (>60) 06/26/17 08:00 POC Glucometer 111 UNITS (80-120) 06/26/17 06:54 Random Glucose 93 mg/dL (74-106) 06/26/17 08:00 Lactic Acid 1.2 mmol/L (0.0-2.0) 06/25/17 21:44 Calcium 8.4 mg/dL (8.5-10.1) L 06/26/17 08:00 Phosphorus 2.9 mg/dL (2.5-4.9) 06/26/17 08:00 Magnesium 1.9 mg/dL (1.8-2.4) 06/26/17 08:00 Total Bilirubin 0.7 mg/dL (0.2-1.0) 06/26/17 08:00 AST 9 U/L (15-37) L 06/26/17 08:00 ALT 11 U/L (12-78) L 06/26/17 08:00 Alkaline Phosphatase 69 U/L (45-117) 06/26/17 08:00 Total Protein 6.9 g/dl (6.4-8.2) 06/26/17 08:00 Albumin 3.3 g/dl (3.4-5.0) L 06/26/17 08:00 wbc down from 13 K up from 3.1 INR, PTT INR 1.43 (0.82-1.09) H D 06/26/17 08:00 Urine Test Results Urine Color Yellow 06/25/17 16:16 Urine Appearance Slcloudy 06/25/17 16:16 Urine pH 5.0 (5.0-8.0) D 06/25/17 16:16 Ur Specific Clayton 1.009 (1.001-1.035) 06/25/17 16:16 Urine Protein Negative (NEGATIVE) 06/25/17 16:16 Urine Glucose (UA) Negative (NEGATIVE) 06/25/17 16:16 Urine Ketones Trace (NEGATIVE) H 06/25/17 16:16 Urine Blood Negative (NEGATIVE) 06/25/17 16:16 Urine Nitrite Positive (NEGATIVE) 06/25/17 16:16 Urine Bilirubin Negative (NEGATIVE) 06/25/17 16:16 Ur Leukocyte Esterase Negative (NEGATIVE) 06/25/17 16:16 Ur Epithelial Cells Rare /HPF (FEW) 06/25/17 16:16 Urine Bacteria Many /hpf (NONE SEEN) 06/25/17 16:16 Urine Mucus Rare 06/25/17 16:16 Imaging - Results Cat Scan: Report Reviewed, Image Reviewed (images personally reviewed; diverticulosis with locules suggestive of microperforation adjacent to inflamed jejunal loop at LLQ abdominal wall with inflammation of wall as well, proximal SB mildly dilated and fluid-filled, no gross free air, very distended bladder) Problem List - Problems (1) Diverticulitis of colon with perforation Assessment/Plan: presumed microperforation of diverticulosis with adjacent inflammation of SB and abdominal wall treating with antibiotics as diverticulitis with contained microperf tender but with minimal pain continue NPO/IVF - would hold asa and diuretic for now GI/DVT prophylaxis Discussed with patient and son-in-law at bedside and daughter by phone that plan for now is as above, serial exams, and trending labs. If sudden or significant change in pain or tenderness, would have to consider urgent reimaging and/or surgery, but with patient's very significant pelvic surgical history, might be advisable (if surgery were not emergent) to have her transferred to a tertiary center for any operative intervention. They stated they would likely choose [place] if needed. Will plan to reimage with CT in several days, pending clinical course and exams to reevaluate for resolution of inflammatory changes and guide transition to oral antibiotics for discharge planning when appropriate. Will follow with you. Code(s): K57.20 - DVTRCLI OF LG INT W PERFORATION AND ABSCESS W/O BLEEDING Qualifiers: Diverticulitis bleeding: without bleeding Qualified Code(s): K57.20 - Diverticulitis of large intestine with perforation and abscess without bleeding (2) Other partial intestinal obstruction Assessment/Plan: mild SBO secondary to jejunal inflammation adjacent to microperf at LLQ pt reports now having multiple BMs, getting looser no obstructive symptoms clinically monitor for bowel function, n/v or acute distention Code(s): K56.690 - OTHER PARTIAL INTESTINAL OBSTRUCTION (3) Diabetes mellitus type 2, controlled, without complications Assessment/Plan: FS with SSI while NPO sugars below 100 on labs D5 1/2 NS + 20 mEq KCl ok for fluids Code(s): E11.9 - TYPE 2 DIABETES MELLITUS WITHOUT COMPLICATIONS Qualifiers: Diabetes mellitus alf insulin use: without intermodal dispatcher use Qualified Code(s): E11.9 - Type 2 diabetes mellitus without complications (4) Hypertension Assessment/Plan: continue metoprolol with sips would hold asa and hctz for now Code(s): I10 - ESSENTIAL (PRIMARY) HYPERTENSION Qualifiers: Hypertension type: essential hypertension Qualified Code(s): I10 - Essential (primary) hypertension (5) Cystocele Assessment/Plan: recurrent, s/p multiple repairs with mesh and partial mesh removal/fascial graft pt manages conservatively at home but has urinary retention plans to learn self-catheterization as outpatient, has appt for next week/can reschedule Jeff for now until reimaging completed to maintain bladder decompression Code(s): N81.10 - CYSTOCELE, UNSPECIFIED Qualifiers: Cystocele location: midline Qualified Code(s): N81.11 - Cystocele, midline (6) Seizure Assessment/Plan: check Keppra level continue home med, pt understands she may need to take bid as prescribed at home Code(s): R56.9 - UNSPECIFIED CONVULSIONS
[2017-06-26] MEDS: INSULIN SLIDING SCALE (NOVOLOG) 1 VIAL SQ SCH ×2 (12:09→17:33)
[2017-06-26] MEDS: FAMOTIDINE 20 MG/50 ML IVPB 20 MG/50 ML MG IVPB SCH ×3 (12:43→21:53)
[2017-06-26] MEDS ORDERED: D5-1/2NS+20 MEQ KCL - 20 MEQ/1,000 ML INFUS.BAG IV SCH (14:30)
[2017-06-26] MEDS: ENOXAPARIN NA (PORCINE) 40 MG/0.4 ML DISP.SYRIN SQ SCH (15:49)
--- NOTE | 2017-06-26 17:50 | PN ---
Teaching Attending Note Name of Resident: Amber Julian ATTENDING PHYSICIAN STATEMENT I saw and evaluated the patient. I reviewed the resident's note and discussed the case with the resident. I agree with the resident's findings and plan as documented with exceptions below. SUBJECTIVE: patient seen and examined, left sided abdominal pain improved, Multiple loose stools today, no other complaints. OBJECTIVE: Vital Signs Period Temp Pulse Resp BP Sys/Armendariz Pulse Ox Last 24 Hr 97.7 F-99.3 F 89-98 18-20 125-142/54-78 96-99 Intake & Output 06/23/17 06/24/17 06/25/17 06/26/17 23:59 23:59 23:59 23:59 Intake Total 1100 Output Total 1800 Balance -700 Weight 180 lb 173 lb 12.8 oz General: lying in bed in no acute distress Abdomen: soft, LLQ tenderness, also mild tenderness in RLQ, per-umbilical region , no voluntary or involuntary guarding or rigidity, positive bowel sounds Home Medication List Medication Instructions Recorded Confirmed Type Aspirin 81 mg PO DAILY 06/25/17 06/25/17 History Ferrous Sulfate 325 mg PO BID 06/25/17 06/25/17 History Gabapentin 100 mg PO HS 06/25/17 06/25/17 History Hydrochlorothiazide [Hctz -] 25 mg PO DAILY 06/25/17 06/25/17 History Ibuprofen 800 mg PO TID 06/25/17 06/25/17 History Levetiracetam [Keppra] 250 mg PO BID 06/25/17 06/25/17 History Metoprolol Tartrate [Lopressor -] 50 mg PO BID 06/25/17 06/25/17 History Naproxen [Naprosyn -] 250 mg PO BID 06/25/17 06/25/17 History Active Medications Generic Name Dose Route Start Last Admin Trade Name Freq PRN Reason Stop Dose Admin Enoxaparin Sodium 40 mg 06/26/17 15:30 06/26/17 15:49 Lovenox - SQ 40 mg DAILY ERON Administration Ferrous Sulfate 325 mg 06/25/17 23:15 06/26/17 09:33 Feosol - PO 325 mg BID ERON Administration Levofloxacin 750 mg in 150 mls @ 100 mls/hr 06/26/17 22:00 Levaquin 750 Mg Premixed Ivpb - IVPB HS ERON Metronidazole 500 mg in 100 mls @ 100 mls/hr 06/26/17 03:00 06/26/17 15:49 Flagyl 500mg Premixed Ivpb - IVPB 100 mls/hr Q6H-IV ERON Administration Potassium Chloride 10 meq/ 1,005 mls @ 100 mls/hr 06/26/17 08:45 06/26/17 17: 45 Dextrose/Sodium Chloride IVPB Not Given Q10H ERON Famotidine/Sodium Chloride 20 mg in 50 mls @ 100 mls/hr 06/26/17 12:15 12:43 Pepcid 20 Mg Premixed Ivpb - IVPB 100 mls/hr BID ERON Administration Insulin Aspart 1 vial 06/26/17 12:00 06/26/17 17:33 Novolog Vial Sliding Scale - SQ Not Given Q6HPO [facility] Protocol Levetiracetam 250 mg 06/25/17 23:15 06/26/17 09:33 Keppra - PO 250 mg BID ERON Administration Metoprolol Tartrate 50 mg 06/25/17 23:15 06/26/17 09:33 Lopressor - PO 50 mg BID ERON Administration Laboratory Results - last 24 hr 06/25/17 06/25/17 06/26/17 16:33 21:44 06:54 WBC RBC Hgb Hct MCV MCH MCHC RDW Plt Count MPV PT with INR INR Sodium 140 Potassium 3.1 L Chloride 106 Carbon Dioxide 24 Anion Gap 10 BUN 10 Creatinine 0.8 Creat Clearance w eGFR > 60 POC Glucometer 111 Random Glucose 86 Lactic Acid 1.2 Calcium 8.8 Phosphorus Magnesium Total Bilirubin 0.7 D AST 9 L ALT 14 Alkaline Phosphatase 69 Total Protein 7.4 Albumin 3.7 Blood Type Antibody Screen 06/26/17 06/26/17 06/26/17 08:00 08:00 08:00 WBC 12.2 H RBC 3.85 Hgb 11.9 Hct 36.8 MCV 95.4 MCH 30.9 MCHC 32.4 RDW 14.4 Plt Count 201 MPV 8.8 PT with INR 16.20 H INR 1.43 H D Sodium 141 Potassium 3.7 Chloride 106 Carbon Dioxide 26 Anion Gap 9 BUN 10 Creatinine 0.8 Creat Clearance w eGFR > 60 POC Glucometer Random Glucose 93 Lactic Acid Calcium 8.4 L Phosphorus 2.9 Magnesium 1.9 Total Bilirubin 0.7 AST 9 L ALT 11 L Alkaline Phosphatase 69 Total Protein 6.9 Albumin 3.3 L Blood Type Antibody Screen 06/26/17 06/26/17 06/26/17 10:28 12:07 17:20 WBC RBC Hgb Hct MCV MCH MCHC RDW Plt Count MPV PT with INR INR Sodium Potassium Chloride Carbon Dioxide Anion Gap BUN Creatinine Creat Clearance w eGFR POC Glucometer 126 100 Random Glucose Lactic Acid Calcium Phosphorus Magnesium Total Bilirubin AST ALT Alkaline Phosphatase Total Protein Albumin Blood Type A POSITIVE Antibody Screen Negative CT A/P results reviewed ASSESSMENT AND PLAN: 76 yof with PMHx of HTN, NIDDM, bladder/vaginal prolapse, cystocele s/p multiple pelvic surgeries, recently placed on intermittent straight cath comes with Acute perforated diverticulitis -Acute perforate descending colon diverticulitis -Localized jejunal dilated loops, ?mild SBO -HTN -NIDDM -Hypokalemia -h/o bladder/vaginal prolapse/cystocele s/p multiple pelvic surgeries Plan: Surgery input appreciated. levaquin/flagyl day 1, Serial abdominal exams, NPO, IVF, change to D5-1/2 NS with 20 K No active concerns for SBO as discussed Jeff continue metoprolol. Hold ASA/HCTZ. DVTPPX dispo pending clinical course Plan discussed with patient in detail, all questions answered.
--- NOTE | 2017-06-26 19:05 | PN ---
Physical Exam: SUBJECTIVE: Patient seen and examined OBJECTIVE: Vital Signs Period Temp Pulse Resp BP Sys/Armendariz Pulse Ox Last 24 Hr 97.7 F-99.3 F 89-98 18-20 125-142/54-78 96-99 GENERAL: The patient is awake, alert, and fully oriented, in no acute distress. HEAD: Normal with no signs of trauma. EYES: PERRL, extraocular movements intact, sclera anicteric, conjunctiva clear. No ptosis. ENT: Ears normal, nares patent, oropharynx clear without exudates, moist mucous membranes. NECK: Trachea midline, full range of motion, supple. LUNGS: Breath sounds equal, clear to auscultation bilaterally, no wheezes, no crackles, no accessory muscle use. HEART: Regular rate and rhythm, S1, S2 without murmur, rub or gallop. ABDOMEN: Soft, nontender, nondistended, normoactive bowel sounds, no guarding, no rebound, no hepatosplenomegaly, no masses. EXTREMITIES: 2+ pulses, warm, well-perfused, no edema. NEUROLOGICAL: Cranial nerves II through XII grossly intact. Normal speech, gait not observed. PSYCH: Normal mood, normal affect. SKIN: Warm, dry, normal turgor, no rashes or lesions noted Laboratory Results - last 24 hr 06/25/17 06/26/17 06/26/17 21:44 06:54 08:00 WBC 12.2 H RBC 3.85 Hgb 11.9 Hct 36.8 MCV 95.4 MCH 30.9 MCHC 32.4 RDW 14.4 Plt Count 201 MPV 8.8 PT with INR INR Sodium Potassium Chloride Carbon Dioxide Anion Gap BUN Creatinine Creat Clearance w eGFR POC Glucometer 111 Random Glucose Lactic Acid 1.2 Calcium Phosphorus Magnesium Total Bilirubin AST ALT Alkaline Phosphatase Total Protein Albumin Blood Type Antibody Screen 06/26/17 06/26/17 06/26/17 08:00 08:00 10:28 WBC RBC Hgb Hct MCV MCH MCHC RDW Plt Count MPV PT with INR 16.20 H INR 1.43 H D Sodium 141 Potassium 3.7 Chloride 106 Carbon Dioxide 26 Anion Gap 9 BUN 10 Creatinine 0.8 Creat Clearance w eGFR > 60 POC Glucometer Random Glucose 93 Lactic Acid Calcium 8.4 L Phosphorus 2.9 Magnesium 1.9 Total Bilirubin 0.7 AST 9 L ALT 11 L Alkaline Phosphatase 69 Total Protein 6.9 Albumin 3.3 L Blood Type A POSITIVE Antibody Screen Negative 06/26/17 06/26/17 12:07 17:20 WBC RBC Hgb Hct MCV MCH MCHC RDW Plt Count MPV PT with INR INR Sodium Potassium Chloride Carbon Dioxide Anion Gap BUN Creatinine Creat Clearance w eGFR POC Glucometer 126 100 Random Glucose Lactic Acid Calcium Phosphorus Magnesium Total Bilirubin AST ALT Alkaline Phosphatase Total Protein Albumin Blood Type Antibody Screen Active Medications Generic Name Dose Route Start Last Admin Trade Name Cassandra PRN Reason Stop Dose Admin Enoxaparin Sodium 40 mg 06/26/17 15:30 06/26/17 15:49 Lovenox - SQ 40 mg DAILY ERON Administration Ferrous Sulfate 325 mg 06/25/17 23:15 06/26/17 09:33 Feosol - PO 325 mg BID ERON Administration Levofloxacin 750 mg in 150 mls @ 100 mls/hr 06/26/17 22:00 Levaquin 750 Mg Premixed Ivpb - IVPB HS ERON Metronidazole 500 mg in 100 mls @ 100 mls/hr 06/26/17 03:00 06/26/17 15:49 Flagyl 500mg Premixed Ivpb - IVPB 100 mls/hr Q6H-IV ERON Administration Potassium Chloride 10 meq/ 1,005 mls @ 100 mls/hr 06/26/17 08:45 06/26/17 17: 45 Dextrose/Sodium Chloride IVPB Not Given Q10H ERON Famotidine/Sodium Chloride 20 mg in 50 mls @ 100 mls/hr 06/26/17 12:15 12:43 Pepcid 20 Mg Premixed Ivpb - IVPB 100 mls/hr BID ERON Administration Insulin Aspart 1 vial 06/26/17 12:00 06/26/17 17:33 Novolog Vial Sliding Scale - SQ Not Given Q6HPO ERON Protocol Levetiracetam 250 mg 06/25/17 23:15 06/26/17 09:33 Keppra - PO 250 mg BID ERON Administration Metoprolol Tartrate 50 mg 06/25/17 23:15 06/26/17 09:33 Lopressor - PO 50 mg BID ERON Administration ASSESSMENT/PLAN:
--- NOTE | 2017-06-26 20:42 | PN ---
Physical Exam: SUBJECTIVE: Patient seen and examined. Several loose BM today. continues to have abdominal pain, slightly improved. No fever, chills, n/v. OBJECTIVE: Vital Signs Period Temp Pulse Resp BP Sys/Armendariz Pulse Ox Last 24 Hr 97.7 F-99.3 F 89-98 18-20 125-142/54-78 96-99 GENERAL: lying in bed, nad HEART: rrr, normal s1/s2 LUNGS: CTAB, no wheezes ABDOMEN: soft, ttp LUQ/LLQ, mild periumbilical ttp, no guarding or rebound, + bowel sounds NEURO: CN II-XII intact, no focal deficits LOWER EXTREMITIES: 2+ DP pulses, wwp, no edema LABS WBC 12.2 H RBC 3.85 Hgb 11.9 Hct 36.8 MCV 95.4 MCH 30.9 MCHC 32.4 RDW 14.4 Plt Count 201 MPV 8.8 Sodium 140 Potassium 3.1 L Chloride 106 CO2 24 Anion Gap 10 BUN 10 Creatinine 0.8 Creat Clearance w eGFR > 60 POC Glucometer Random Glucose 86 Lactic Acid 1.2 Calcium 8.8 Phosphorus Magnesium Total Bilirubin 0.7 D Direct Bilirubin AST 9 L ALT 14 ALP 69 Total Protein 7.4 Albumin 3.7 PT with INR 16.20 H INR 1.43 H D Active Medications Generic Name Dose Route Start Last Admin Trade Name Cassandra PRN Reason Stop Dose Admin Enoxaparin Sodium 40 mg 06/26/17 15:30 06/26/17 15:49 Lovenox - SQ 40 mg DAILY ERON Administration Ferrous Sulfate 325 mg 06/25/17 23:15 06/26/17 09:33 Feosol - PO 325 mg BID ERON Administration Levofloxacin 750 mg in 150 mls @ 100 mls/hr 06/26/17 22:00 Levaquin 750 Mg Premixed Ivpb - IVPB HS ERON Metronidazole 500 mg in 100 mls @ 100 mls/hr 06/26/17 03:00 06/26/17 15:49 Flagyl 500mg Premixed Ivpb - IVPB 100 mls/hr Q6H-IV ERON Administration Potassium Chloride 10 meq/ 1,005 mls @ 100 mls/hr 06/26/17 08:45 06/26/17 17: 45 Dextrose/Sodium Chloride IVPB Not Given Q10H ERON Famotidine/Sodium Chloride 20 mg in 50 mls @ 100 mls/hr 06/26/17 12:15 12:43 Pepcid 20 Mg Premixed Ivpb - IVPB 100 mls/hr BID ERON Administration Insulin Aspart 1 vial 06/26/17 12:00 06/26/17 17:33 Novolog Vial Sliding Scale - SQ Not Given Q6HPO ERON Protocol Levetiracetam 250 mg 06/25/17 23:15 06/26/17 09:33 Keppra - PO 250 mg BID ERON Administration Metoprolol Tartrate 50 mg 06/25/17 23:15 06/26/17 09:33 Lopressor - PO 50 mg BID ERON Administration ASSESSMENT/PLAN: 76yo F with PMH of NIDDM, hysterectomy, prolapsed bladder/vagina who p/w acute LLQ abdominal pain and found to have perforated diverticulitis. #sepsis 2/2 acute perforated diverticulitis -Surgery consulted -Levoquin 750 IV QD/Flagyl 500 IV Q6h, Day 1 -Serial Abd exams -NPO -IVF D5-1/2NS + KCl 20mEq @100cc/hr #chronic urinary Retention -remove on discharge -patient planning to learn how to self-cath #Diabetes -BGMs/ISS ACHS #Hypertension -c/w metoprolol 50mg PO BID -Hold ASA/HCTZ #FEN: IVF / K repleted / NPO, advance per surgery #PPX: Heparin SQ TID #Disposition: M/S FULL code d/w Dr. Reta Julian MD PGY1- Internal Medicine Visit type - Emergency Visit Emergency Visit: No - New Patient This patient is new to me today: No - Critical Care Critical Care patient: No
[2017-06-26] MEDS ORDERED: GABAPENTIN 100 MG CAPSULE (FP) PO SCH (22:00)
[2017-06-27] MEDS: INSULIN SLIDING SCALE (NOVOLOG) 1 VIAL SQ SCH ×4 (00:30→17:41)
[2017-06-27] MEDS ORDERED: ACETAMINOPHEN 1000 MG/100 ML VIAL (NON FORMULARY) IVPB ONE (05:33)
[2017-06-27] MEDS ORDERED: ACETAMINOPHEN 325 MG TABLET (FP) PO ONE (05:33)
[2017-06-27] MEDS: POTASSIUM CHLORIDE 10 MEQ in DEXTROSE 5%-NORMAL SALINE 1,000 ML IVPB SCH ×3 (06:04→14:01)
[2017-06-27 07:57] LABS: BASO % 0.3 % (0-2.0); EOS % 0.7 % (0-4.5); HEMATOCRIT 33.5 % (32.4-45.2); HEMOGLOBIN 11.1 GM/dL (10.7-15.3); LYMPH % 20.5 % (8-40); MCH 31.6 pg (25.7-33.7); MCHC 33.2 g/dl (32.0-36.0); MEAN CELL VOLUME 95.2 fl (80-96); MEAN PLT VOLUME 9.1 fl (7.5-11.1); MONO % 6.7 % (3.8-10.2); NEUT % 71.8 % (42.8-82.8); PLATELET COUNT 197 K/MM3 (134-434); RBC 3.51 M/mm3 (3.60-5.2); WHITE BLOOD COUNT 8.3 K/mm3 (4.0-10.0)
[2017-06-27 08:15] LABS: CHLORIDE 107 mmol/L (98-107); POTASSIUM 3.4 mmol/L (3.5-5.1); SODIUM 142 mmol/L (136-145)
[2017-06-27 08:23] LABS: ALBUMIN 2.7 g/dl (3.4-5.0); ALK PHOS 56 U/L (45-117); ANION GAP 13 (8-16); BILIRUBIN,DIRECT 0.2 mg/dL (0.0-0.2); BILIRUBIN,TOTAL 0.8 mg/dL (0.2-1.0); BLOOD UREA NITROGEN 7 mg/dL (7-18); CALCIUM 8.2 mg/dL (8.5-10.1); CO2 22 mmol/L (21-32); CREATININE 0.8 mg/dL (0.55-1.02); GLUCOSE,RANDOM 97 mg/dL (74-106); SGOT/AST 8 U/L (15-37); SGPT/ALT 11 U/L (12-78); TOT PROT 6.3 g/dl (6.4-8.2)
[2017-06-27] MEDS ORDERED: PT OWN MED DRAWER 7, Y5N ONE ×2 (09:38→15:14)
[2017-06-27] MEDS: FAMOTIDINE 20 MG/50 ML IVPB 20 MG/50 ML MG IVPB SCH ×2 (09:40→22:00)
[2017-06-27] MEDS: METOPROLOL TARTRATE 50 MG TABLET (FP) PO SCH ×2 (09:41→21:50)
[2017-06-27] MEDS: ENOXAPARIN NA (PORCINE) 40 MG/0.4 ML DISP.SYRIN SQ SCH (09:41)
[2017-06-27] MEDS: levETIRAcetam 250 MG TABLET (FP) PO SCH ×2 (09:41→22:10)
[2017-06-27] MEDS: FERROUS SO4 325 MG TABLET (FP) PO SCH ×2 (09:41→22:10)
--- NOTE | 2017-06-27 10:43 | PN ---
Progress Note, Physician History of Present Illness: Pt being treated for microperf diverticulitis with adjacent jejunal inflammation and mild SBO. Had multiple BMs yesterday, none yet today. Pain a bit better, little less tender. IV Tylenol worked well yesterday. NPO on IVF and antibiotics. WBC down this am to normal. Ambulating with Jeff well. Mild nausea, no vomiting. No fevers. - Current Medication List Current Medications: Active Medications Enoxaparin Sodium (Lovenox -) 40 mg SQ DAILY [facility] Last Admin: 06/27/17 09:41 Dose: 40 mg Ferrous Sulfate (Feosol -) 325 mg PO BID [facility] Last Admin: 06/27/17 09:41 Dose: 325 mg Levofloxacin (Levaquin 750 Mg Premixed Ivpb -) 750 mg in 150 mls @ 100 mls/hr IVPB HS [facility] Last Admin: 06/26/17 23:04 Dose: 100 mls/hr Metronidazole (Flagyl 500mg Premixed Ivpb -) 500 mg in 100 mls @ 100 mls/hr IVPB Q6H-IV [facility] Last Admin: 06/27/17 09:41 Dose: 100 mls/hr Potassium Chloride 10 meq/ (Dextrose/Sodium Chloride) 1,005 mls @ 100 mls/hr IVPB Q10H [facility] Last Admin: 06/27/17 09:42 Dose: 100 mls/hr Famotidine/Sodium Chloride (Pepcid 20 Mg Premixed Ivpb -) 20 mg in 50 mls @ 100 mls/hr IVPB BID [facility] Last Admin: 06/27/17 09:40 Dose: 100 mls/hr Insulin Aspart (Novolog Vial Sliding Scale -) 1 vial SQ Q6HPO [facility] PRN Reason: Protocol Last Admin: 06/27/17 06:04 Dose: Not Given Levetiracetam (Keppra -) 250 mg PO BID [facility] Last Admin: 06/27/17 09:41 Dose: 250 mg Metoprolol Tartrate (Lopressor -) 50 mg PO BID [facility] Last Admin: 06/27/17 09:41 Dose: 50 mg - Objective Vital Signs: Vital Signs Temperature 98.6 F 06/27/17 06:00 Pulse Rate 89 06/27/17 06:00 Respiratory Rate 18 06/27/17 06:00 Blood Pressure 117/61 06/27/17 06:00 O2 Sat by Pulse Oximetry (%) 99 06/26/17 21:00 Constitutional: Yes: Well Nourished, No Distress, Calm Eyes: Yes: Conjunctiva Clear, EOM Intact HENT: Yes: Atraumatic, Normocephalic Gastrointestinal: Yes: Soft, Distention (minimal), Hypoactive Bowel Sounds, Tenderness (LLQ mainly, less LUQ and RLQ, mild epigastric, very minimal RUQ and umbilical and suprapubic - all less than yesterday a bit, no guarding or rebound ). No: Tenderness, Rebound ...Rectal Exam: Yes: Deferred Genitourinary: Yes: Jeff Present. No: Hematuria Musculoskeletal: No: Joint Stiffness, Joint Swelling Extremities: No: Cool, Cyanosis Integumentary: No: Jaundice, Rash Neurological: Yes: Alert, Oriented Labs: CBC, BMP 06/27/17 06:45 06/27/17 06:45 wbc down to normal K little low renal function normal glucose normal Problem List - Problems (1) Diverticulitis of colon with perforation Assessment/Plan: presumed microperforation of diverticulosis with adjacent inflammation of SB and abdominal wall treating with antibiotics as diverticulitis with contained microperf less tender with minimal pain wbc normalizing improving on antibiotics and bowel rest continue NPO/IVF - holding asa and diuretic for now replete K+ prn GI/DVT prophylaxis Plan to reimage with CT in next couple days (po + iv contrast), pending clinical course and exams to reevaluate for resolution of inflammatory changes and guide transition to oral antibiotics for discharge planning when appropriate. Will follow with you. Code(s): K57.20 - DVTRCLI OF LG INT W PERFORATION AND ABSCESS W/O BLEEDING Qualifiers: Diverticulitis bleeding: without bleeding Qualified Code(s): K57.20 - Diverticulitis of large intestine with perforation and abscess without bleeding (2) Other partial intestinal obstruction Assessment/Plan: mild SBO secondary to jejunal inflammation adjacent to microperf at LLQ pt had multiple BMs yesterday, getting looser no obstructive symptoms clinically monitor for bowel function, n/v or acute distention Code(s): K56.690 - OTHER PARTIAL INTESTINAL OBSTRUCTION (3) Diabetes mellitus type 2, controlled, without complications Assessment/Plan: FS with SSI while NPO sugars below 100 on labs D5 1/2 NS + 20 mEq KCl ok for fluids Code(s): E11.9 - TYPE 2 DIABETES MELLITUS WITHOUT COMPLICATIONS Qualifiers: Diabetes mellitus assisted insulin use: without petroleum terminal plant operator use Qualified Code(s): E11.9 - Type 2 diabetes mellitus without complications (4) Hypertension Assessment/Plan: continue metoprolol with sips would hold asa and hctz for now Code(s): I10 - ESSENTIAL (PRIMARY) HYPERTENSION Qualifiers: Hypertension type: essential hypertension Qualified Code(s): I10 - Essential (primary) hypertension (5) Cystocele Assessment/Plan: recurrent, s/p multiple repairs with mesh and partial mesh removal/fascial graft pt manages conservatively at home but has urinary retention plans to learn self-catheterization as outpatient, has appt for next week/can reschedule Jeff for now until reimaging completed to maintain bladder decompression Code(s): N81.10 - CYSTOCELE, UNSPECIFIED Qualifiers: Cystocele location: midline Qualified Code(s): N81.11 - Cystocele, midline (6) Seizure Assessment/Plan: Keppra level pending continue home med, pt understands she may need to take bid as prescribed at home Code(s): R56.9 - UNSPECIFIED CONVULSIONS
[2017-06-27] MEDS ORDERED: ACETAMINOPHEN 1000 MG/100 ML VIAL (NON FORMULARY) IVPB PRN (10:44)
--- NOTE | 2017-06-27 11:46 | PN ---
Teaching Attending Note Name of Resident: Amber Julian ATTENDING PHYSICIAN STATEMENT I saw and evaluated the patient. I reviewed the resident's note and discussed the case with the resident. I agree with the resident's findings and plan as documented with exceptions below. SUBJECTIVE: Patient seen and examined. abdominal pain improved, feels gas-y but no further loose BM last night. No new complaints otherwise, eager to eat. OBJECTIVE: Vital Signs Period Temp Pulse Resp BP Sys/Armendariz Pulse Ox Last 24 Hr 97.7 F-98.6 F 89-95 -18 117-139/55-67 99 Intake & Output 06/24/17 06/25/17 06/26/17 06/27/17 23:59 23:59 23:59 23:59 Intake Total 2650 100 Output Total 2200 1250 Balance 450 -1150 Weight 180 lb 173 lb 12.8 oz General: lying in bed in no acute distress Abdomen: soft, tenderness in LLQ, also mild in RLQ and alia-umbilical region, no voluntary or involuntary guarding or rigidity, positive bowel sounds Home Medication List Medication Instructions Recorded Confirmed Type Aspirin 81 mg PO DAILY 06/25/17 06/25/17 History Ferrous Sulfate 325 mg PO BID 06/25/17 06/25/17 History Ibuprofen 800 mg PO TID 06/25/17 06/25/17 History Levetiracetam [Keppra] 250 mg PO BID 06/25/17 06/25/17 History Metoprolol Tartrate [Lopressor -] 50 mg PO BID 06/25/17 06/25/17 History Naproxen [Naprosyn -] 250 mg PO BID 06/25/17 06/25/17 History Active Medications Generic Name Dose Route Start Last Admin Trade Name Freq PRN Reason Stop Dose Admin Acetaminophen 1,000 mg 06/27/17 10:44 Ofirmev Injection - IVPB Q6H PRN PAIN LEVEL 6-10 Enoxaparin Sodium 40 mg 06/26/17 15:30 06/27/17 09:41 Lovenox - SQ 40 mg DAILY ERON Administration Ferrous Sulfate 325 mg 06/25/17 23:15 06/27/17 09:41 Feosol - PO 325 mg BID ERON Administration Levofloxacin 750 mg in 150 mls @ 100 mls/hr 06/26/17 22:00 06/26/17 23:04 Levaquin 750 Mg Premixed Ivpb - IVPB 100 mls/hr HS ERON Administration Metronidazole 500 mg in 100 mls @ 100 mls/hr 06/26/17 03:00 06/27/17 09:41 Flagyl 500mg Premixed Ivpb - IVPB 100 mls/hr Q6H-IV ERON Administration Potassium Chloride 10 meq/ 1,005 mls @ 100 mls/hr 06/26/17 08:45 06/27/17 09: 42 Dextrose/Sodium Chloride IVPB 100 mls/hr Q10H ERON Administration Famotidine/Sodium Chloride 20 mg in 50 mls @ 100 mls/hr 06/26/17 12:15 09:40 Pepcid 20 Mg Premixed Ivpb - IVPB 100 mls/hr BID ERON Administration Insulin Aspart 1 vial 06/26/17 12:00 06/27/17 06:04 Novolog Vial Sliding Scale - SQ Not Given Q6HPO ERON Protocol Levetiracetam 250 mg 06/25/17 23:15 06/27/17 09:41 Keppra - PO 250 mg BID ERON Administration Metoprolol Tartrate 50 mg 06/25/17 23:15 06/27/17 09:41 Lopressor - PO 50 mg BID ERON Administration Laboratory Results - last 24 hr 06/26/17 06/26/17 06/26/17 10:28 12:07 17:20 WBC RBC Hgb Hct MCV MCH MCHC RDW Plt Count MPV Neutrophils % Lymphocytes % Monocytes % Eosinophils % Basophils % Sodium Potassium Chloride Carbon Dioxide Anion Gap BUN Creatinine POC Glucometer 126 100 Random Glucose Calcium Total Bilirubin Direct Bilirubin AST ALT Alkaline Phosphatase Total Protein Albumin Blood Type A POSITIVE Antibody Screen Negative 06/26/17 06/27/17 06/27/17 23:10 06:03 06:45 WBC 8.3 D RBC 3.51 L Hgb 11.1 Hct 33.5 MCV 95.2 MCH 31.6 MCHC 33.2 RDW 14.0 Plt Count 197 MPV 9.1 Neutrophils % 71.8 Lymphocytes % 20.5 D Monocytes % 6.7 D Eosinophils % 0.7 D Basophils % 0.3 Sodium Potassium Chloride Carbon Dioxide Anion Gap BUN Creatinine POC Glucometer 93 109 Random Glucose Calcium Total Bilirubin Direct Bilirubin AST ALT Alkaline Phosphatase Total Protein Albumin Blood Type Antibody Screen 06/27/17 06:45 WBC RBC Hgb Hct MCV MCH MCHC RDW Plt Count MPV Neutrophils % Lymphocytes % Monocytes % Eosinophils % Basophils % Sodium 142 Potassium 3.4 L Chloride 107 Carbon Dioxide 22 Anion Gap 13 BUN 7 Creatinine 0.8 POC Glucometer Random Glucose 97 Calcium 8.2 L Total Bilirubin 0.8 Direct Bilirubin 0.2 AST 8 L ALT 11 L Alkaline Phosphatase 56 Total Protein 6.3 L Albumin 2.7 L Blood Type Antibody Screen Microbiology 06/25/17 16:16 Urine - Urine Clean Catch Urine Culture - Preliminary Group D Strep Or Entero Coccus 06/25/17 22:50 Blood - Peripheral Venous Blood Culture - Preliminary NO GROWTH OBTAINED AFTER 24 HOURS, INCUBATION TO CONTINUE FOR 4 DAYS. 06/25/17 22:50 Blood - Peripheral Venous Blood Culture - Preliminary NO GROWTH OBTAINED AFTER 24 HOURS, INCUBATION TO CONTINUE FOR 4 DAYS. ASSESSMENT AND PLAN: 76 yof with PMHx of HTN, NIDDM, bladder/vaginal prolapse, cystocele s/p multiple pelvic surgeries, recently placed on intermittent straight cath comes with Acute perforated diverticulitis -Acute perforate descending colon diverticulitis -Localized jejunal dilated loops, ?mild SBO -HTN -NIDDM -Hypokalemia -h/o bladder/vaginal prolapse/cystocele s/p multiple pelvic surgeries Plan: Surgery input appreciated. levaquin/flagyl day 2, Serial abdominal exams, NPO, IVF D5-1/2 NS with 20 K Defer diet advancement to surgery. Plan for repeat CT in 24-48 hours per surgical recs. No active concerns for SBO as discussed Tomer, d/c prior to dc. Continue metoprolol. Hold ASA/HCTZ. DVTPPX dispo by early next week if continues to improve and repeat imaging non concerning. Plan discussed with patient in detail, all questions answered.
[2017-06-27] MEDS: ACETAMINOPHEN 1000 MG/100 ML VIAL (NON FORMULARY) IVPB PRN (15:46)
--- NOTE | 2017-06-27 19:36 | PN ---
Physical Exam: SUBJECTIVE: Patient seen and examined. Had multiple BMs yesterday, none today. Abdominal pain improved. Ambulating to bathroom. No fever or chills. OBJECTIVE: Vital Signs Period Temp Pulse Resp BP Sys/Armendariz Pulse Ox Last 24 Hr 98.6 F-99.1 F 75-95 18-20 117-144/57-67 97-99 GENERAL: ambulating around room, nad HEART: rrr, normal s1/s2 LUNGS: CTA, no wheezes ABDOMEN: soft, non-distended, ttp LLQ>LLU, diminished bowel sounds NEURO: CN II-XII intact, no focal deficits EXTREMITIES: pulses 2+ b/l, motor strength 5/5, no peripheral edema CBC, BMP 06/27/17 06:45 06/27/17 06:45 Hepatic Panel Total Bilirubin 0.8 mg/dL (0.2-1.0) 06/27/17 06:45 Direct Bilirubin 0.2 mg/dL (0.0-0.2) 06/27/17 06:45 AST 8 U/L (15-37) L 06/27/17 06:45 ALT 11 U/L (12-78) L 06/27/17 06:45 Alkaline Phosphatase 56 U/L (45-117) 06/27/17 06:45 Albumin 2.7 g/dl (3.4-5.0) L 06/27/17 06:45 Microbiology 06/25/17 16:16 Urine - Urine Clean Catch Urine Culture - Preliminary Group D Strep Or Entero Coccus 06/25/17 22:50 Blood - Peripheral Venous Blood Culture - Preliminary NO GROWTH OBTAINED AFTER 24 HOURS, INCUBATION TO CONTINUE FOR 4 DAYS. 06/25/17 22:50 Blood - Peripheral Venous Blood Culture - Preliminary NO GROWTH OBTAINED AFTER 24 HOURS, INCUBATION TO CONTINUE FOR 4 DAYS. Active Medications Acetaminophen (Ofirmev Injection -) 1,000 mg IVPB Q6H PRN PRN Reason: PAIN LEVEL 6-10 Last Admin: 06/27/17 15:46 Dose: 1,000 mg Enoxaparin Sodium (Lovenox -) 40 mg SQ DAILY [facility] Last Admin: 06/27/17 09:41 Dose: 40 mg Ferrous Sulfate (Feosol -) 325 mg PO BID [facility] Last Admin: 06/27/17 09:41 Dose: 325 mg Levofloxacin (Levaquin 750 Mg Premixed Ivpb -) 750 mg in 150 mls @ 100 mls/hr IVPB HS [facility] Last Admin: 06/26/17 23:04 Dose: 100 mls/hr Metronidazole (Flagyl 500mg Premixed Ivpb -) 500 mg in 100 mls @ 100 mls/hr IVPB Q6H-IV [facility] Last Admin: 06/27/17 14:08 Dose: 100 mls/hr Potassium Chloride 10 meq/ (Dextrose/Sodium Chloride) 1,005 mls @ 100 mls/hr IVPB Q10H [facility] Last Admin: 06/27/17 14:01 Dose: Not Given Famotidine/Sodium Chloride (Pepcid 20 Mg Premixed Ivpb -) 20 mg in 50 mls @ 100 mls/hr IVPB BID [facility] Last Admin: 06/27/17 09:40 Dose: 100 mls/hr Insulin Aspart (Novolog Vial Sliding Scale -) 1 vial SQ Q6HPO [facility] PRN Reason: Protocol Last Admin: 06/27/17 12:03 Dose: Not Given Levetiracetam (Keppra -) 250 mg PO BID [facility] Last Admin: 06/27/17 09:41 Dose: 250 mg Metoprolol Tartrate (Lopressor -) 50 mg PO BID [facility] Last Admin: 06/27/17 09:41 Dose: 50 mg ASSESSMENT/PLAN: 76yo F with PMH of NIDDM, hysterectomy, prolapsed bladder/vagina who p/w acute LLQ abdominal pain and found to have perforated diverticulitis. #sepsis 2/2 acute perforated diverticulitis, pain improved today, no leukocytosis -Surgery consulted -Levoquin 750 IV QD/Flagyl 500 IV Q6h, Day 2 -Serial Abd exams -NPO -IVF D5-1/2NS + KCl 10mEq @100cc/hr #chronic urinary Retention -remove rogers on discharge -patient planning to learn how to self-cath #Diabetes -BGMs/ISS ACHS #Hypertension -c/w metoprolol 50mg PO BID -Hold ASA/HCTZ #FEN: IVF / K repleted / NPO, advance per surgery #PPX: Heparin SQ TID #Disposition: M/S FULL code d/w Dr. Reta Julian MD PGY1- Internal Medicine Visit type - Emergency Visit Emergency Visit: No - New Patient This patient is new to me today: No - Critical Care Critical Care patient: No
[2017-06-27] MEDS ORDERED: IBUPROFEN 800 MG/8 ML IJ IVPB ONE (23:00)
[2017-06-28] MEDS: INSULIN SLIDING SCALE (NOVOLOG) 1 VIAL SQ SCH ×5 (00:48→21:51)
[2017-06-28] MEDS: POTASSIUM CHLORIDE 10 MEQ in DEXTROSE 5%-NORMAL SALINE 1,000 ML IVPB SCH ×4 (00:49→21:55)
[2017-06-28] MEDS ORDERED: morphine SULFATE 4 MG/ML VIAL IVPUSH PRN (07:53)
[2017-06-28 08:26] LABS: BASO % 0.5 % (0-2.0); EOS % 1.1 % (0-4.5); HEMATOCRIT 33.9 % (32.4-45.2); HEMOGLOBIN 11.2 GM/dL (10.7-15.3); LYMPH % 20.9 % (8-40); MCH 31.4 pg (25.7-33.7); MCHC 32.9 g/dl (32.0-36.0); MEAN CELL VOLUME 95.3 fl (80-96); MEAN PLT VOLUME 8.3 fl (7.5-11.1); MONO % 7.4 % (3.8-10.2); NEUT % 70.1 % (42.8-82.8); PLATELET COUNT 204 K/MM3 (134-434); RBC 3.56 M/mm3 (3.60-5.2); RDW 13.9 % (11.6-15.6); WHITE BLOOD COUNT 5.8 K/mm3 (4.0-10.0)
[2017-06-28 08:46] LABS: ALBUMIN 2.7 g/dl (3.4-5.0); ANION GAP 6 (8-16); BILIRUBIN,TOTAL 0.5 mg/dL (0.2-1.0); BLOOD UREA NITROGEN 12 mg/dL (7-18); CALCIUM 7.6 mg/dL (8.5-10.1); CHLORIDE 112 mmol/L (98-107); CO2 25 mmol/L (21-32); CREATININE 0.8 mg/dL (0.55-1.02); GLUCOSE,RANDOM 99 mg/dL (74-106); MAGNESIUM 1.8 mg/dL (1.8-2.4); PHOSPHOROUS 2.6 mg/dL (2.5-4.9); POTASSIUM 3.2 mmol/L (3.5-5.1); SGOT/AST 6 U/L (15-37); SGPT/ALT 9 U/L (12-78); SODIUM 143 mmol/L (136-145); TOT PROT 5.8 g/dl (6.4-8.2)
[2017-06-28 08:47] LABS: ALK PHOS 71 U/L (45-117)
[2017-06-28] MEDS: FAMOTIDINE 20 MG/50 ML IVPB 20 MG/50 ML MG IVPB SCH ×2 (09:53→21:48)
[2017-06-28] MEDS: METOPROLOL TARTRATE 50 MG TABLET (FP) PO SCH ×2 (09:54→21:52)
[2017-06-28] MEDS: ENOXAPARIN NA (PORCINE) 40 MG/0.4 ML DISP.SYRIN SQ SCH (09:54)
[2017-06-28] MEDS: FERROUS SO4 325 MG TABLET (FP) PO SCH ×2 (09:54→21:52)
[2017-06-28] MEDS: levETIRAcetam 250 MG TABLET (FP) PO SCH ×2 (09:54→21:52)
[2017-06-28] MEDS ORDERED: MAGNESIUM 1GM/D5W - 1 GM/100 ML IVPB IVPB ONE (11:38)
[2017-06-28] MEDS ORDERED: KCL 10 MEQ IVPB 10 MEQ/100 ML INFUS.BAG IVPB SCH (11:45)
--- NOTE | 2017-06-28 11:45 | PN ---
Teaching Attending Note Name of Resident: Escobar Mcduffie SUBJECTIVE: Patient seen and examined, reports still with abdominal pain, overall unchanged , no further diarrhea but passing gas, no new fevers/chills/nausea/vomiting. Had some low back pain yesterday but resolved now. OBJECTIVE: Vital Signs Period Temp Pulse Resp BP Sys/Armendariz Pulse Ox Last 24 Hr 98.1 F-98.7 F 75-83 18-20 120-144/52-77 97 Intake & Output 06/25/17 06/26/17 06/27/17 06/28/17 23:59 23:59 23:59 23:59 Intake Total 2650 400 1400 Output Total 2200 2250 1100 Balance 450 -1850 300 Weight 180 lb 173 lb 12.8 oz General: lying in bed in no acute distress Abdomen: soft, tenderness most prominent in LLQ, also in alia-umbilical and epigastric region, no vluntary or involuntary guarding or rigidity Musculoskeletal: no spinal tenderness, neg CVA tenderness Extremities: no edema Home Medication List Medication Instructions Recorded Confirmed Type Aspirin 81 mg PO DAILY 06/25/17 06/25/17 History Ferrous Sulfate 325 mg PO BID 06/25/17 06/25/17 History Ibuprofen 800 mg PO TID 06/25/17 06/25/17 History Levetiracetam [Keppra] 250 mg PO BID 06/25/17 06/25/17 History Metoprolol Tartrate [Lopressor -] 50 mg PO BID 06/25/17 06/25/17 History Naproxen [Naprosyn -] 250 mg PO BID 06/25/17 06/25/17 History Active Medications Generic Name Dose Route Start Last Admin Trade Name Freq PRN Reason Stop Dose Admin Acetaminophen 1,000 mg 06/27/17 15:17 06/27/17 15:46 Ofirmev Injection - IVPB 1,000 mg Q6H PRN Administration PAIN LEVEL 6-10 Enoxaparin Sodium 40 mg 06/26/17 15:30 06/28/17 09:54 Lovenox - SQ 40 mg DAILY ERON Administration Ferrous Sulfate 325 mg 06/25/17 23:15 06/28/17 09:54 Feosol - PO 325 mg BID ERON Administration Levofloxacin 750 mg in 150 mls @ 100 mls/hr 06/26/17 22:00 06/27/17 22:10 Levaquin 750 Mg Premixed Ivpb - IVPB 100 mls/hr HS ERON Administration Metronidazole 500 mg in 100 mls @ 100 mls/hr 06/26/17 03:00 06/28/17 09:53 Flagyl 500mg Premixed Ivpb - IVPB 100 mls/hr Q6H-IV ERON Administration Potassium Chloride 10 meq/ 1,005 mls @ 100 mls/hr 06/26/17 08:45 06/28/17 11: 14 Dextrose/Sodium Chloride IVPB Not Given Q10H ERON Famotidine/Sodium Chloride 20 mg in 50 mls @ 100 mls/hr 06/26/17 12:15 09:53 Pepcid 20 Mg Premixed Ivpb - IVPB 100 mls/hr BID ERON Administration Magnesium Sulfate/Dextrose 1 100 mls @ 100 mls/hr 06/28/17 11:38 gm/ Miscellaneous IVPB 06/28/17 12:37 ONCE ONE Potassium Chloride 10 meq in 100 mls @ 100 mls/hr 06/28/17 11:45 Potassium Chloride 10 Meq Premix Ivpb - IVPB 06/28/17 13:44 Q60M [facility] Insulin Aspart 1 vial 06/28/17 11:45 Novolog Vial Sliding Scale - SQ Q8H [facility] Protocol Levetiracetam 250 mg 06/25/17 23:15 06/28/17 09:54 Keppra - PO 250 mg BID ERON Administration Metoprolol Tartrate 50 mg 06/25/17 23:15 06/28/17 09:54 Lopressor - PO 50 mg BID ERON Administration Morphine Sulfate 1 mg 06/28/17 07:53 Morphine Sulfate IVPUSH Q6H PRN PAIN LEVEL 6-10 Laboratory Results - last 24 hr 06/27/17 06/27/17 06/27/17 12:02 17:40 22:07 WBC RBC Hgb Hct MCV MCH MCHC RDW Plt Count MPV Neutrophils % Lymphocytes % Monocytes % Eosinophils % Basophils % Sodium Potassium Chloride Carbon Dioxide Anion Gap BUN Creatinine Creat Clearance w eGFR POC Glucometer 103 108 111 Random Glucose Calcium Phosphorus Magnesium Total Bilirubin AST ALT Alkaline Phosphatase Total Protein Albumin 06/28/17 06/28/17 06/28/17 00:44 05:55 08:13 WBC 5.8 D RBC 3.56 L Hgb 11.2 Hct 33.9 MCV 95.3 MCH 31.4 MCHC 32.9 RDW 13.9 Plt Count 204 MPV 8.3 Neutrophils % 70.1 Lymphocytes % 20.9 Monocytes % 7.4 Eosinophils % 1.1 Basophils % 0.5 Sodium Potassium Chloride Carbon Dioxide Anion Gap BUN Creatinine Creat Clearance w eGFR POC Glucometer 113 98 Random Glucose Calcium Phosphorus Magnesium Total Bilirubin AST ALT Alkaline Phosphatase Total Protein Albumin 06/28/17 08:13 WBC RBC Hgb Hct MCV MCH MCHC RDW Plt Count MPV Neutrophils % Lymphocytes % Monocytes % Eosinophils % Basophils % Sodium 143 Potassium 3.2 L Chloride 112 H Carbon Dioxide 25 Anion Gap 6 L BUN 12 Creatinine 0.8 Creat Clearance w eGFR > 60 POC Glucometer Random Glucose 99 Calcium 7.6 L Phosphorus 2.6 Magnesium 1.8 Total Bilirubin 0.5 D AST 6 L ALT 9 L Alkaline Phosphatase 71 Total Protein 5.8 L Albumin 2.7 L Microbiology 06/25/17 22:50 Blood - Peripheral Venous Blood Culture - Preliminary NO GROWTH OBTAINED AFTER 48 HOURS, INCUBATION TO CONTINUE FOR 3 DAYS. 06/25/17 22:50 Blood - Peripheral Venous Blood Culture - Preliminary NO GROWTH OBTAINED AFTER 48 HOURS, INCUBATION TO CONTINUE FOR 3 DAYS. 06/25/17 16:16 Urine - Urine Clean Catch Urine Culture - Preliminary Group D Strep Or Entero Coccus ASSESSMENT AND PLAN: 76 yof with PMHx of HTN, NIDDM, bladder/vaginal prolapse, cystocele s/p multiple pelvic surgeries, recently placed on intermittent straight cath comes with Acute perforated diverticulitis -Acute perforate descending colon diverticulitis -Localized jejunal dilated loops, ?mild SBO -HTN -NIDDM -Hypokalemia -h/o bladder/vaginal prolapse/cystocele s/p multiple pelvic surgeries Plan: Surgery input appreciated. levaquin/flagyl day 3, Serial abdominal exams, NPO, IVF D5-1/2 NS with 20 K Defer diet advancement to surgery. Plan for repeat CT in 24-48 hours per surgical recs. No active concerns for SBO as discussed Tomer, d/c prior to dc. Continue metoprolol. Hold ASA/HCTZ. replete K, Mg. Monitor lytes. Change BGM to q8h, ISS. DVTPPX dispo pending clinical course and repeat imaging. Plan discussed with patient in detail, all questions answered.
[2017-06-28] MEDS ORDERED: PT OWN MED DRAWER 7, Y5N ONE (13:17)
[2017-06-28] MEDS: POTASSIUM CHLORIDE 10 MEQ in SODIUM CHLORIDE 100 ML IVPB SCH ×2 (17:30→19:48)
[2017-06-28] MEDS: ACETAMINOPHEN 1000 MG/100 ML VIAL (NON FORMULARY) IVPB PRN (17:30)
--- NOTE | 2017-06-28 17:36 | EKG ---
Test Reason : Blood Pressure : / mmHG Vent. Rate : 084 BPM Atrial Rate : 084 BPM P-R Int : 154 ms QRS Dur : 078 ms QT Int : 364 ms P-R-T Axes : 048 038 048 degrees QTc Int : 430 ms NORMAL SINUS RHYTHM NORMAL ECG WHEN COMPARED WITH ECG OF 25-JUN-2017 23:02, NON-SPECIFIC CHANGE IN ST SEGMENT IN INFERIOR LEADS NONSPECIFIC T WAVE ABNORMALITY NO LONGER EVIDENT IN INFERIOR LEADS NONSPECIFIC T WAVE ABNORMALITY NO LONGER EVIDENT IN LATERAL LEADS Confirmed by PAT VELAZCO MD ([id number]) on 06/28/2017 5:36:27 PM Referred By: Confirmed By:PAT VELAZCO MD
[2017-06-28] MEDS ORDERED: INSULIN (NOVOLOG) ASPART 100 UNITS/ML 10ML VIAL ONE (20:29)
--- NOTE | 2017-06-28 21:07 | PN ---
Progress Note, Physician History of Present Illness: Pt being treated for microperf diverticulitis with adjacent jejunal inflammation and mild SBO. No BMs today but ambulating around. Pain a little less, feeling a little better. IV Tylenol for pain. NPO on IVF and antibiotics. Vallejo with very light yellow urine in tubing. Had some posterolateral left chest pain last evening, EKG was ok. Got some additional pain medication. That pain has been better as well, though she has occasional twinges still. - Current Medication List Current Medications: Active Medications Enoxaparin Sodium (Lovenox -) 40 mg SQ DAILY [facility] Last Admin: 06/28/17 09:54 Dose: 40 mg Ferrous Sulfate (Feosol -) 325 mg PO BID [facility] Last Admin: 06/28/17 09:54 Dose: 325 mg Levofloxacin (Levaquin 750 Mg Premixed Ivpb -) 750 mg in 150 mls @ 100 mls/hr IVPB HS [facility] Last Admin: 06/27/17 22:10 Dose: 100 mls/hr Metronidazole (Flagyl 500mg Premixed Ivpb -) 500 mg in 100 mls @ 100 mls/hr IVPB Q6H-IV [facility] Last Admin: 06/28/17 20:45 Dose: 100 mls/hr Potassium Chloride 10 meq/ (Dextrose/Sodium Chloride) 1,005 mls @ 100 mls/hr IVPB Q10H [facility] Last Admin: 06/28/17 16:05 Dose: 100 mls/hr Famotidine/Sodium Chloride (Pepcid 20 Mg Premixed Ivpb -) 20 mg in 50 mls @ 100 mls/hr IVPB BID [facility] Last Admin: 06/28/17 09:53 Dose: 100 mls/hr Insulin Aspart (Novolog Vial Sliding Scale -) 0 vial SQ Q8H ERON PRN Reason: Protocol Last Admin: 06/28/17 20:17 Dose: Not Given Levetiracetam (Keppra -) 250 mg PO BID [facility] Last Admin: 06/28/17 09:54 Dose: 250 mg Metoprolol Tartrate (Lopressor -) 50 mg PO BID [facility] Last Admin: 06/28/17 09:54 Dose: 50 mg Morphine Sulfate (Morphine Sulfate) 1 mg IVPUSH Q6H PRN PRN Reason: PAIN LEVEL 6-10 - Objective Vital Signs: Vital Signs Temperature 98.2 F 06/28/17 18:00 Pulse Rate 91 H 06/28/17 18:00 Respiratory Rate 20 06/28/17 18:00 Blood Pressure 162/76 06/28/17 18:00 O2 Sat by Pulse Oximetry (%) 97 06/28/17 09:00 Constitutional: Yes: Well Nourished, No Distress, Calm Eyes: Yes: Conjunctiva Clear, EOM Intact HENT: Yes: Atraumatic, Normocephalic Gastrointestinal: Yes: Soft, Distention (minimal), Tenderness (LLQ but less than yesterday, mild suprapubic, LUQ, none now in epigastric, right side; no rebound or guarding) Genitourinary: Yes: Vallejo Present (very light yellow urine). No: Hematuria Extremities: No: Cool, Cyanosis Integumentary: No: Jaundice, Rash Neurological: Yes: Alert, Oriented Labs: CBC, BMP 06/28/17 08:13 06/28/17 08:13 Microbiology 06/25/17 22:50 Blood Culture - Preliminary Blood - Peripheral Venous NO GROWTH OBTAINED AFTER 48 HOURS, INCUBATION TO CONTINUE FOR 3 DAYS. 06/25/17 22:50 Blood Culture - Preliminary Blood - Peripheral Venous NO GROWTH OBTAINED AFTER 48 HOURS, INCUBATION TO CONTINUE FOR 3 DAYS. Urine with Grp D strep or enterococcus, prelim report Problem List - Problems (1) Diverticulitis of colon with perforation Assessment/Plan: presumed microperforation of diverticulosis with adjacent inflammation of SB and abdominal wall treating with antibiotics as diverticulitis with contained microperf even less tender with no pain unless palpated wbc normalized improving steadily on antibiotics and bowel rest continue NPO/IVF - holding asa and diuretic for now GI/DVT prophylaxis Plan to reimage with CT tomorrow (po + iv contrast), to reevaluate for resolution of inflammatory changes and guide transition to oral antibiotics for discharge planning when appropriate. Will discuss positive vs negative oral contrast with radiology before ordering scan in am. Will follow with you. Code(s): K57.20 - DVTRCLI OF LG INT W PERFORATION AND ABSCESS W/O BLEEDING Qualifiers: Diverticulitis bleeding: without bleeding Qualified Code(s): K57.20 - Diverticulitis of large intestine with perforation and abscess without bleeding (2) Other partial intestinal obstruction Assessment/Plan: mild SBO secondary to jejunal inflammation adjacent to microperf at LLQ no obstructive symptoms clinically monitor for bowel function, n/v or acute distention Code(s): K56.690 - OTHER PARTIAL INTESTINAL OBSTRUCTION (3) Diabetes mellitus type 2, controlled, without complications Assessment/Plan: FS with SSI while NPO sugars below 100 on labs D5 1/2 NS + 20 mEq KCl ok for fluids Code(s): E11.9 - TYPE 2 DIABETES MELLITUS WITHOUT COMPLICATIONS Qualifiers: Diabetes mellitus usp insulin use: without usp use Qualified Code(s): E11.9 - Type 2 diabetes mellitus without complications (4) Hypertension Assessment/Plan: continue metoprolol with sips would hold asa and hctz for now Code(s): I10 - ESSENTIAL (PRIMARY) HYPERTENSION Qualifiers: Hypertension type: essential hypertension Qualified Code(s): I10 - Essential (primary) hypertension (5) Cystocele Assessment/Plan: recurrent, s/p multiple repairs with mesh and partial mesh removal/fascial graft pt manages conservatively at home but has urinary retention plans to learn self-catheterization as outpatient, has appt for next week/can reschedule Vallejo for now until reimaging completed to maintain bladder decompression would consider LEAVING VALLEJO until pt has appt to learn self-cathing -- has NOT YET DONE SO Code(s): N81.10 - CYSTOCELE, UNSPECIFIED Qualifiers: Cystocele location: midline Qualified Code(s): N81.11 - Cystocele, midline (6) Seizure Assessment/Plan: Keppra level pending continue home med, pt understands she may need to take bid as prescribed at home Code(s): R56.9 - UNSPECIFIED CONVULSIONS
[2017-06-29] MEDS: POTASSIUM CHLORIDE 10 MEQ in DEXTROSE 5%-NORMAL SALINE 1,000 ML IVPB SCH ×5 (05:12→22:29)
[2017-06-29] MEDS: INSULIN SLIDING SCALE (NOVOLOG) 1 VIAL SQ SCH ×3 (05:40→22:39)
[2017-06-29 07:38] LABS: BASO % 0.6 % (0-2.0); HEMATOCRIT 32.4 % (32.4-45.2); HEMOGLOBIN 10.7 GM/dL (10.7-15.3); LYMPH % 22.4 % (8-40); MCH 31.3 pg (25.7-33.7); MCHC 33.1 g/dl (32.0-36.0); MEAN CELL VOLUME 94.5 fl (80-96); MEAN PLT VOLUME 8.9 fl (7.5-11.1); MONO % 7.4 % (3.8-10.2); NEUT % 68.6 % (42.8-82.8); PLATELET COUNT 217 K/MM3 (134-434); RBC 3.43 M/mm3 (3.60-5.2); RDW 14.1 % (11.6-15.6)
[2017-06-29 07:52] LABS: CHLORIDE 111 mmol/L (98-107); POTASSIUM 3.5 mmol/L (3.5-5.1); SODIUM 144 mmol/L (136-145)
[2017-06-29 07:56] LABS: ALBUMIN 2.8 g/dl (3.4-5.0); ALK PHOS 52 U/L (45-117); ANION GAP 12 (8-16); BILIRUBIN,TOTAL 0.5 mg/dL (0.2-1.0); BLOOD UREA NITROGEN 5 mg/dL (7-18); CALCIUM 8.3 mg/dL (8.5-10.1); CO2 21 mmol/L (21-32); CREATININE 0.7 mg/dL (0.55-1.02); GLUCOSE,RANDOM 109 mg/dL (74-106); MAGNESIUM 2.1 mg/dL (1.8-2.4); PHOSPHOROUS 2.6 mg/dL (2.5-4.9); SGOT/AST 10 U/L (15-37); SGPT/ALT 8 U/L (12-78); TOT PROT 6.1 g/dl (6.4-8.2)
--- NOTE | 2017-06-29 08:46 | PN ---
Teaching Attending Note Name of Resident: Amber Julian ATTENDING PHYSICIAN STATEMENT I saw and evaluated the patient. I reviewed the resident's note and discussed the case with the resident. I agree with the resident's findings and plan as documented with exceptions below. SUBJECTIVE: Patient seen and examined. overall unchanged, no new events overnight. Had 2 small BM s overnight, passing gas. OBJECTIVE: Vital Signs Period Temp Pulse Resp BP Sys/Armendariz Pulse Ox Last 24 Hr 97.2 F-99.5 F 80-91 18-20 117-162/57-80 96-97 Intake & Output 06/26/17 06/27/17 06/28/17 06/29/17 23:59 23:59 23:59 23:59 Intake Total 2650 400 2000 900 Output Total 2200 2250 2500 700 Balance 450 -1850 -500 200 Weight 173 lb 12.8 oz General; lying in bed in no acute distress Abdomen: tenderness in RLQ/RMQ in alia-umbilical region LLQ tenderness unchanged , no new voluntary or involuntary guarding or rigidity, positive bowel sounds Home Medication List Medication Instructions Recorded Confirmed Type Aspirin 81 mg PO DAILY 06/25/17 06/25/17 History Ferrous Sulfate 325 mg PO BID 06/25/17 06/25/17 History Ibuprofen 800 mg PO TID 06/25/17 06/25/17 History Levetiracetam [Keppra] 250 mg PO BID 06/25/17 06/25/17 History Metoprolol Tartrate [Lopressor -] 50 mg PO BID 06/25/17 06/25/17 History Naproxen [Naprosyn -] 250 mg PO BID 06/25/17 06/25/17 History Active Medications Generic Name Dose Route Start Last Admin Trade Name Freq PRN Reason Stop Dose Admin Enoxaparin Sodium 40 mg 06/26/17 15:30 06/28/17 09:54 Lovenox - SQ 40 mg DAILY ERON Administration Ferrous Sulfate 325 mg 06/25/17 23:15 06/28/17 21:52 Feosol - PO 325 mg BID ERON Administration Levofloxacin 750 mg in 150 mls @ 100 mls/hr 06/26/17 22:00 06/28/17 21:54 Levaquin 750 Mg Premixed Ivpb - IVPB 100 mls/hr HS ERON Administration Metronidazole 500 mg in 100 mls @ 100 mls/hr 06/26/17 03:00 06/29/17 02:37 Flagyl 500mg Premixed Ivpb - IVPB 100 mls/hr Q6H-IV ERON Administration Potassium Chloride 10 meq/ 1,005 mls @ 100 mls/hr 06/26/17 08:45 06/29/17 07: 09 Dextrose/Sodium Chloride IVPB Not Given Q10H ERON Famotidine/Sodium Chloride 20 mg in 50 mls @ 100 mls/hr 06/26/17 12:15 21:48 Pepcid 20 Mg Premixed Ivpb - IVPB 100 mls/hr BID ERON Administration Insulin Aspart 1 vial 06/28/17 22:00 06/29/17 05:40 Novolog Vial Sliding Scale - SQ Not Given TID [facility] Protocol Levetiracetam 250 mg 06/25/17 23:15 06/28/17 21:52 Keppra - PO 250 mg BID ERON Administration Metoprolol Tartrate 50 mg 06/25/17 23:15 06/28/17 21:52 Lopressor - PO 50 mg BID ERON Administration Morphine Sulfate 1 mg 06/28/17 07:53 Morphine Sulfate IVPUSH Q6H PRN PAIN LEVEL 6-10 Laboratory Results - last 24 hr 06/28/17 06/28/17 06/28/17 08:13 12:20 21:51 WBC RBC Hgb Hct MCV MCH MCHC RDW Plt Count MPV Neutrophils % Lymphocytes % Monocytes % Eosinophils % Basophils % Sodium 143 Potassium 3.2 L Chloride 112 H Carbon Dioxide 25 Anion Gap 6 L BUN 12 Creatinine 0.8 Creat Clearance w eGFR > 60 POC Glucometer 94 81 Random Glucose 99 Calcium 7.6 L Phosphorus 2.6 Magnesium 1.8 Total Bilirubin 0.5 D AST 6 L ALT 9 L Alkaline Phosphatase 71 Total Protein 5.8 L Albumin 2.7 L 06/29/17 06/29/17 06/29/17 05:39 06:45 06:45 WBC 7.0 RBC 3.43 L Hgb 10.7 Hct 32.4 MCV 94.5 MCH 31.3 MCHC 33.1 RDW 14.1 Plt Count 217 MPV 8.9 Neutrophils % 68.6 Lymphocytes % 22.4 Monocytes % 7.4 Eosinophils % 1.0 Basophils % 0.6 Sodium 144 Potassium 3.5 Chloride 111 H Carbon Dioxide 21 Anion Gap 12 BUN 5 L Creatinine 0.7 Creat Clearance w eGFR > 60 POC Glucometer 108 Random Glucose 109 H Calcium 8.3 L Phosphorus 2.6 Magnesium 2.1 Total Bilirubin 0.5 AST 10 L ALT 8 L Alkaline Phosphatase 52 Total Protein 6.1 L Albumin 2.8 L Microbiology 06/25/17 22:50 Blood - Peripheral Venous Blood Culture - Preliminary NO GROWTH OBTAINED AFTER 72 HOURS, INCUBATION TO CONTINUE FOR 2 DAYS. 06/25/17 22:50 Blood - Peripheral Venous Blood Culture - Preliminary NO GROWTH OBTAINED AFTER 72 HOURS, INCUBATION TO CONTINUE FOR 2 DAYS. 06/25/17 16:16 Urine - Urine Clean Catch Urine Culture - Preliminary Group D Strep Or Entero Coccus Repeat CT A/P results reviewed. ASSESSMENT AND PLAN: 76 yof with PMHx of HTN, NIDDM, bladder/vaginal prolapse, cystocele s/p multiple pelvic surgeries, recently placed on intermittent straight cath comes with Acute perforated diverticulitis -Acute perforate descending colon diverticulitis -Localized jejunal dilated loops, ?mild SBO -HTN -NIDDM -Hypokalemia -h/o bladder/vaginal prolapse/cystocele s/p multiple pelvic surgeries Plan: Surgery input appreciated. levaquin/flagyl day 4, Serial abdominal exams, NPO, IVF D5-1/2 NS with [address] A/P today unchanged, follow up with surgery for additional recs. No active concerns for SBO as discussed Avoid narcotics. Tomer, d/c prior to dc. Continue metoprolol. Hold ASA/HCTZ. replete K, Mg. Monitor lytes. BGM/ISS q6-8h. DVTPPX dispo pending clinical course and surgical input. Plan discussed with patient in detail, all questions answered.
--- NOTE | 2017-06-29 08:59 | PN ---
Physical Exam: SUBJECTIVE: Patient seen and examined. No events overnight. Had 2x small, hard BM this AM, +Flatus. Continues to have L sided abdominal pain; denies fever, chills, n/v, or chest pain. OBJECTIVE: Vital Signs Period Temp Pulse Resp BP Sys/Armendariz Pulse Ox Last 24 Hr 97.2 F-99.5 F 80-91 18-20 117-162/57-80 96-97 Intake & Output 06/26/17 06/27/17 06/28/17 06/29/17 23:59 23:59 23:59 23:59 Intake Total 2650 400 2000 1200 Output Total 2200 2250 2500 1900 Balance 450 -1850 -500 -700 Weight 78.834 kg GENERAL: lying in bed, aaox3, nad HEART: rrr, normal s1/s2 LUNGS: CTAB, no wheezes ABDOMEN: soft, non-distended, ttp LLQ>LLU and alia-umbilically; no guarding or rebound tenderness, +bowel sounds NEURO: CN II-XII grossly intact, but not formally tested EXTREMITIES: pulses 2+ DP b/l, motor strength 5/5, no peripheral edema CBC, BMP 06/29/17 06:45 06/29/17 06:45 Ca - 8.3 Phos - 2.6 Mg - 2.1 Hepatic Panel Total Bilirubin 0.5 mg/dL (0.2-1.0) 06/29/17 06:45 Direct Bilirubin 0.2 mg/dL (0.0-0.2) 06/27/17 06:45 AST 10 U/L (15-37) L 06/29/17 06:45 ALT 8 U/L (12-78) L 06/29/17 06:45 Alkaline Phosphatase 52 U/L (45-117) 06/29/17 06:45 Albumin 2.8 g/dl (3.4-5.0) L 06/29/17 06:45 INR, PTT INR 1.43 (0.82-1.09) H D 06/26/17 08:00 Microbiology 06/25/17 16:16 Urine - Urine Clean Catch Urine Culture - Final Enterococcus Faecalis 06/25/17 22:50 Blood - Peripheral Venous Blood Culture - Preliminary NO GROWTH OBTAINED AFTER 72 HOURS, INCUBATION TO CONTINUE FOR 2 DAYS. 06/25/17 22:50 Blood - Peripheral Venous Blood Culture - Preliminary NO GROWTH OBTAINED AFTER 72 HOURS, INCUBATION TO CONTINUE FOR 2 DAYS. Active Medications Acetaminophen (Tylenol -) 650 mg PO Q6H PRN PRN Reason: PAIN Last Admin: 06/29/17 20:57 Dose: 650 mg Enoxaparin Sodium (Lovenox -) 40 mg SQ DAILY [facility] Last Admin: 06/29/17 09:07 Dose: 40 mg Ferrous Sulfate (Feosol -) 325 mg PO BID [facility] Last Admin: 06/29/17 22:28 Dose: 325 mg Levofloxacin (Levaquin 750 Mg Premixed Ivpb -) 750 mg in 150 mls @ 100 mls/hr IVPB HS [facility] Last Admin: 06/29/17 22:28 Dose: 100 mls/hr Metronidazole (Flagyl 500mg Premixed Ivpb -) 500 mg in 100 mls @ 100 mls/hr IVPB Q6H-IV [facility] Last Admin: 06/29/17 21:30 Dose: 100 mls/hr Potassium Chloride 10 meq/ (Dextrose/Sodium Chloride) 1,005 mls @ 100 mls/hr IVPB Q10H [facility] Last Admin: 06/29/17 22:29 Dose: 100 mls/hr Insulin Aspart (Novolog Vial Sliding Scale -) 1 vial SQ BID [facility] PRN Reason: Protocol Last Admin: 06/29/17 22:39 Dose: Not Given Levetiracetam (Keppra -) 250 mg PO BID [facility] Last Admin: 06/29/17 22:28 Dose: 250 mg Metoprolol Tartrate (Lopressor -) 50 mg PO BID [facility] Last Admin: 06/29/17 22:28 Dose: 50 mg Pantoprazole Sodium (Protonix -) 40 mg PO BID [facility] Last Admin: 06/29/17 22:28 Dose: 40 mg ASSESSMENT/PLAN: 76yo F with PMH of NIDDM, hysterectomy, prolapsed bladder/vagina who p/w acute LLQ abdominal pain and found to have perforated diverticulitis. #sepsis 2/2 acute perforated diverticulitis, no leukocytosis or fever x24H -Surgery consulted -Levoquin 750 IV QD/Flagyl 500 IV Q6h, Day 4 -Serial Abd exams -NPO -IVF D5-1/2NS + KCl 10mEq @100cc/hr -Tylenol PRN for pain #chronic urinary Retention -remove rogers on discharge -patient planning to learn how to self-cath #Diabetes -BGMs/ISS BID while NPO #Hypertension -c/w metoprolol 50mg PO BID -Hold ASA/HCTZ #FEN: IVF / lytes wnl / NPO, advance per surgery #PPX: Lovenox 40mg SQ daily #Disposition: M/S FULL code d/w Dr. Reta Julian MD PGY1- Internal Medicine Visit type - Emergency Visit Emergency Visit: No - New Patient This patient is new to me today: No - Critical Care Critical Care patient: No
[2017-06-29] MEDS: FERROUS SO4 325 MG TABLET (FP) PO SCH ×2 (09:07→22:28)
[2017-06-29] MEDS: ENOXAPARIN NA (PORCINE) 40 MG/0.4 ML DISP.SYRIN SQ SCH (09:07)
[2017-06-29] MEDS: FAMOTIDINE 20 MG/50 ML IVPB 20 MG/50 ML MG IVPB SCH (09:07)
[2017-06-29] MEDS: levETIRAcetam 250 MG TABLET (FP) PO SCH ×2 (09:07→22:28)
[2017-06-29] MEDS: METOPROLOL TARTRATE 50 MG TABLET (FP) PO SCH ×2 (09:07→22:28)
[2017-06-29] MEDS ORDERED: ACETAMINOPHEN 1000 MG/100 ML VIAL (NON FORMULARY) IVPB PRN (11:08)
[2017-06-29] MEDS ORDERED: PT OWN MED DRAWER 7, Y5N ONE (16:45)
--- NOTE | 2017-06-29 19:31 | PN ---
Progress Note, Physician History of Present Illness: Pt being treated for microperf diverticulitis with adjacent jejunal inflammation and mild SBO. Pain a little less, feeling a little better. NPO on IVF and antibiotics. [place] with very light yellow urine in tubing. Had CT earlier today w/PO + IV contrast, has had BMs since. Still has some intermittent pain in left lateral chest/back which seems to respond temporarily to Pepcid. She does describe intermittent heartburn at home. Has been walking better/more. CT shows persistent inflammation in LLQ, few locules of air adjacent to SB/LB affected loops, similar to previous scan. Oral contrast had not yet reached that area, but she describes multiple BMs since then, likely evacuating contrast. No signs of obstruction on scan today. No nausea or vomiting. No increase in pain or tenderness, actually pain has been less overall. Daughter Larissa at bedside. - Current Medication List Current Medications: Active Medications Acetaminophen (Ofirmev Injection -) 1,000 mg IVPB Q6H PRN PRN Reason: PAIN Last Admin: 06/29/17 14:13 Dose: 1,000 mg Enoxaparin Sodium (Lovenox -) 40 mg SQ DAILY [facility] Last Admin: 06/29/17 09:07 Dose: 40 mg Ferrous Sulfate (Feosol -) 325 mg PO BID [facility] Last Admin: 06/29/17 09:07 Dose: 325 mg Levofloxacin (Levaquin 750 Mg Premixed Ivpb -) 750 mg in 150 mls @ 100 mls/hr IVPB HS [facility] Last Admin: 06/28/17 21:54 Dose: 100 mls/hr Metronidazole (Flagyl 500mg Premixed Ivpb -) 500 mg in 100 mls @ 100 mls/hr IVPB Q6H-IV [facility] Last Admin: 06/29/17 16:50 Dose: 100 mls/hr Potassium Chloride 10 meq/ (Dextrose/Sodium Chloride) 1,005 mls @ 100 mls/hr IVPB Q10H [facility] Last Admin: 06/29/17 16:50 Dose: Not Given Famotidine/Sodium Chloride (Pepcid 20 Mg Premixed Ivpb -) 20 mg in 50 mls @ 100 mls/hr IVPB BID [facility] Last Admin: 06/29/17 09:07 Dose: 100 mls/hr Insulin Aspart (Novolog Vial Sliding Scale -) 1 vial SQ BID [facility] PRN Reason: Protocol Levetiracetam (Keppra -) 250 mg PO BID [facility] Last Admin: 06/29/17 09:07 Dose: 250 mg Metoprolol Tartrate (Lopressor -) 50 mg PO BID [facility] Last Admin: 06/29/17 09:07 Dose: 50 mg - Objective Vital Signs: Vital Signs Temperature 98.2 F 06/29/17 14:44 Pulse Rate 87 06/29/17 14:44 Respiratory Rate 18 06/29/17 14:44 Blood Pressure 157/82 06/29/17 14:44 O2 Sat by Pulse Oximetry (%) 97 06/29/17 09:00 Constitutional: Yes: Well Nourished, No Distress, Calm Eyes: Yes: Conjunctiva Clear, EOM Intact HENT: Yes: Atraumatic, Normocephalic Gastrointestinal: Yes: Soft, Tenderness (LLQ with mild referral to RLQ but no R/ G, no tenderness elsewhere). No: Distention ...Rectal Exam: Yes: Deferred Genitourinary: Yes: [place] Present. No: Hematuria Extremities: No: Cool, Cyanosis Integumentary: No: Jaundice, Rash Neurological: Yes: Alert, Oriented Labs: CBC, BMP 06/29/17 06:45 06/29/17 06:45 Microbiology 06/25/17 16:16 Urine Culture - Final Urine - Urine Clean Catch Enterococcus Faecalis 06/25/17 22:50 Blood Culture - Preliminary Blood - Peripheral Venous NO GROWTH OBTAINED AFTER 72 HOURS, INCUBATION TO CONTINUE FOR 2 DAYS. 06/25/17 22:50 Blood Culture - Preliminary Blood - Peripheral Venous NO GROWTH OBTAINED AFTER 72 HOURS, INCUBATION TO CONTINUE FOR 2 DAYS. E .faecalis sensitive to Levofloxacin - ....Imaging Cat Scan: Report Reviewed, Image Reviewed (images seen personally, similar inflammatory changes to previous in LLQ near abd wall, few locules of extraluminal air, contrast not quite to affected area of SB yet but no sig dilated SB loops, bladder decompressed) Problem List - Problems (1) Diverticulitis of colon with perforation Assessment/Plan: presumed microperforation of diverticulosis with adjacent inflammation of SB and abdominal wall treating with antibiotics as diverticulitis with contained microperf tenderness now focal in LLQ only, improved from previous, controlled with prn tylenol wbc normalized improving steadily on antibiotics and bowel rest tolerated oral contrast well, having BMs - likely coming all the way through will trial clears in am - will monitor for possible advancement by next day ok for po tylenol prn (ordered) GI/DVT prophylaxis - since left upper body discomfort could be related to reflux , will change to PPI, and would consider Maalox next time it occurs to see if it responds as well CT results noted as above Similar to previous, but clinically improving slowly - continue abx (current antibiotics also cover E. faecalis grown from initial urine culture) Spoke to patient and daughter at length about possibility of discharge home once tolerating a diet on oral antibiotics to complete course, but with need to f/u with PMD and possibly GI to ensure resolution within 7-10 days. May need further imaging as outpatient pending status near conclusion of antibiotic course. If she were to experience any sudden or significant change in physical symptoms at home (pain, N/V, fever, abdominal distention, etc), they both understand that she would be best treated at a tertiary hospital, and that emergency surgery would almost certainly involve a colostomy. They understand and agree with this assessment. Code(s): K57.20 - DVTRCLI OF LG INT W PERFORATION AND ABSCESS W/O BLEEDING Qualifiers: Diverticulitis bleeding: without bleeding Qualified Code(s): K57.20 - Diverticulitis of large intestine with perforation and abscess without bleeding (2) Other partial intestinal obstruction Assessment/Plan: resolved Code(s): K56.690 - OTHER PARTIAL INTESTINAL OBSTRUCTION (3) Diabetes mellitus type 2, controlled, without complications Assessment/Plan: FS with SSI while NPO sugars below 100 on labs D5 1/2 NS + 20 mEq KCl ok for fluids pt not on metformin or other oral meds at home anymore (since January) ok for clears in am will monitor for possible advancement by next day Code(s): E11.9 - TYPE 2 DIABETES MELLITUS WITHOUT COMPLICATIONS Qualifiers: Diabetes mellitus terminal system operator insulin use: without terminal system operator use Qualified Code(s): E11.9 - Type 2 diabetes mellitus without complications (4) Hypertension Assessment/Plan: continue metoprolol with sips would hold asa and hctz for now Code(s): I10 - ESSENTIAL (PRIMARY) HYPERTENSION Qualifiers: Hypertension type: essential hypertension Qualified Code(s): I10 - Essential (primary) hypertension (5) Cystocele Assessment/Plan: recurrent, s/p multiple repairs with mesh and partial mesh removal/fascial graft pt manages conservatively at home but has urinary retention PLANS to learn self-catheterization as outpatient, will reschedule appt with her doctor for this [place] to maintain bladder decompression while here would LEAVE [place] on discharge until pt has appt to learn self-cathing -- has NOT YET DONE SO discussed this with patient and daughter, who understand and agree with plan Code(s): N81.10 - CYSTOCELE, UNSPECIFIED Qualifiers: Cystocele location: midline Qualified Code(s): N81.11 - Cystocele, midline (6) Seizure Assessment/Plan: Keppra level low continue home med, pt understands she will need to take bid as prescribed at home PMD can recheck Code(s): R56.9 - UNSPECIFIED CONVULSIONS
[2017-06-29] MEDS: ACETAMINOPHEN 325 MG TABLET (FP) PO PRN (20:57)
[2017-06-29] MEDS: PANTOPRAZOLE 40 MG TABLET (FP) PO SCH (22:28)
[2017-06-30] MEDS: POTASSIUM CHLORIDE 10 MEQ in DEXTROSE 5%-NORMAL SALINE 1,000 ML IVPB SCH (02:52)
[2017-06-30] MEDS: ACETAMINOPHEN 325 MG TABLET (FP) PO PRN ×3 (06:06→22:21)
[2017-06-30 08:15] LABS: BASO % 0.7 % (0-2.0); EOS % 0.8 % (0-4.5); HEMATOCRIT 33.7 % (32.4-45.2); HEMOGLOBIN 11.2 GM/dL (10.7-15.3); LYMPH % 20.3 % (8-40); MCH 31.1 pg (25.7-33.7); MCHC 33.1 g/dl (32.0-36.0); MEAN CELL VOLUME 93.9 fl (80-96); MEAN PLT VOLUME 8.4 fl (7.5-11.1); MONO % 9.8 % (3.8-10.2); NEUT % 68.4 % (42.8-82.8); PLATELET COUNT 237 K/MM3 (134-434); RBC 3.58 M/mm3 (3.60-5.2); RDW 14.1 % (11.6-15.6); WHITE BLOOD COUNT 6.2 K/mm3 (4.0-10.0)
[2017-06-30 08:29] LABS: ANION GAP 7 (8-16); BLOOD UREA NITROGEN 4 mg/dL (7-18); CHLORIDE 111 mmol/L (98-107); CO2 26 mmol/L (21-32); CREATININE 0.7 mg/dL (0.55-1.02); GLUCOSE,RANDOM 109 mg/dL (74-106); MAGNESIUM 1.8 mg/dL (1.8-2.4); POTASSIUM 3.5 mmol/L (3.5-5.1); SODIUM 144 mmol/L (136-145)
--- NOTE | 2017-06-30 08:59 | PN ---
Physical Exam: 24H Events: Yesterday - Abd CT no significant interval change; several BMs after imaging O/N: no events AM: diet advanced to Clears SUBJECTIVE: Patient seen and examined. Feels abdominal pain improved; only endorses pain with palpation, not with movement; Ambulating well to bathroom; no fever, chills, n/v, chest pain or SOB OBJECTIVE: Vital Signs Period Temp Pulse Resp BP Sys/Armendariz Pulse Ox Last 24 Hr 97.8 F-99.3 F 82-95 18-18 136-161/60-82 97-97 Intake & Output 06/27/17 06/28/17 06/29/17 06/30/17 23:59 23:59 23:59 23:59 Intake Total 400 2000 1200 2847 Output Total 2250 2500 4200 3700 Balance -1850 -500 -3000 -853 GENERAL: lying in bed, aaox3, nad HEART: rrr, normal s1/s2 LUNGS: CTAB, no wheezes ABDOMEN: soft, non-distended, ttp LLQ; no guarding or rebound tenderness, + bowel sounds NEURO: CN II-XII grossly intact, but not formally tested EXTREMITIES: pulses 2+ DP b/l, motor strength 5/5, no peripheral edema CBC, BMP 06/30/17 07:20 06/30/17 07:20 Hepatic Panel Total Bilirubin 0.5 mg/dL (0.2-1.0) 06/29/17 06:45 Direct Bilirubin 0.2 mg/dL (0.0-0.2) 06/27/17 06:45 AST 10 U/L (15-37) L 06/29/17 06:45 ALT 8 U/L (12-78) L 06/29/17 06:45 Alkaline Phosphatase 52 U/L (45-117) 06/29/17 06:45 Albumin 2.8 g/dl (3.4-5.0) L 06/29/17 06:45 Ca- 8 Mg - 1.8 Active Medications Acetaminophen (Tylenol -) 650 mg PO Q6H PRN PRN Reason: PAIN Last Admin: 06/30/17 15:19 Dose: 650 mg Enoxaparin Sodium (Lovenox -) 40 mg SQ DAILY [facility] Last Admin: 06/30/17 10:21 Dose: 40 mg Levofloxacin (Levaquin 750 Mg Premixed Ivpb -) 750 mg in 150 mls @ 100 mls/hr IVPB HS [facility] Last Admin: 06/30/17 21:56 Dose: 100 mls/hr Metronidazole (Flagyl 500mg Premixed Ivpb -) 500 mg in 100 mls @ 100 mls/hr IVPB Q6H-IV [facility] Last Admin: 06/30/17 21:49 Dose: 100 mls/hr Insulin Aspart (Novolog Vial Sliding Scale -) 1 vial SQ BID [facility] PRN Reason: Protocol Last Admin: 06/30/17 21:47 Dose: Not Given Levetiracetam (Keppra -) 250 mg PO BID [facility] Last Admin: 06/30/17 21:56 Dose: 250 mg Metoprolol Tartrate (Lopressor -) 50 mg PO BID [facility] Last Admin: 06/30/17 21:56 Dose: 50 mg Pantoprazole Sodium (Protonix -) 40 mg PO BID [facility] Last Admin: 06/30/17 21:56 Dose: 40 mg ASSESSMENT/PLAN: 76yo F with PMH of NIDDM, hysterectomy, prolapsed bladder/vagina who p/w acute LLQ abdominal pain and found to have perforated diverticulitis. #sepsis 2/2 acute perforated diverticulitis, no leukocytosis or fever x48H -Surgery consulted -Levoquin 750 IV QD/Flagyl 500 IV Q6h, Day 5 -Serial Abd exams -Advance to clears, if tolerating will d/w surgery regarding d/c IVFs -Tylenol PRN for pain #chronic urinary Retention -remove rogers on discharge, consider teaching self-cath prior to d/c with close f/u #Diabetes -BGMs/ISS BID, may increase as diet advances #Hypertension -c/w metoprolol 50mg PO BID -Hold ASA/HCTZ #h/o seizures; pt reports following with Dr. Thrasher -c/w home Keppra 250mg PO BID #FEN: IVF / Mg repleted / clears #PPX: Lovenox 40mg SQ daily #Disposition: M/S FULL code d/w Dr. Donavon Julian MD PGY1- Internal Medicine Visit type - Emergency Visit Emergency Visit: No - New Patient This patient is new to me today: No - Critical Care Critical Care patient: No
[2017-06-30] MEDS: METOPROLOL TARTRATE 50 MG TABLET (FP) PO SCH ×2 (10:20→21:56)
[2017-06-30] MEDS: PANTOPRAZOLE 40 MG TABLET (FP) PO SCH ×2 (10:20→21:56)
[2017-06-30] MEDS: FERROUS SO4 325 MG TABLET (FP) PO SCH (10:20)
[2017-06-30] MEDS: levETIRAcetam 250 MG TABLET (FP) PO SCH ×2 (10:20→21:56)
[2017-06-30] MEDS: ENOXAPARIN NA (PORCINE) 40 MG/0.4 ML DISP.SYRIN SQ SCH (10:21)
[2017-06-30] MEDS: INSULIN SLIDING SCALE (NOVOLOG) 1 VIAL SQ SCH ×2 (10:53→21:47)
[2017-06-30] MEDS ORDERED: MAGNESIUM 2GM/50ML STERILE WATER IVPB IVPB ONE (11:16)
[2017-06-30] MEDS ORDERED: D5-1/2NS+20 MEQ KCL - 20 MEQ/1,000 ML INFUS.BAG IV SCH (12:15)
--- NOTE | 2017-06-30 12:18 | PN ---
Progress Note, Physician History of Present Illness: Pt being treated for microperf diverticulitis with adjacent jejunal inflammation and mild SBO. Pain a little less every day, on IVF and antibiotics. [place] with very light yellow urine in tubing. Had BMs yesterday, not today yet. Tolerating clears with no nausea or vomiting. No increase in pain or tenderness, though still somewhat tender. Ambulating. - Current Medication List Current Medications: Active Medications Acetaminophen (Tylenol -) 650 mg PO Q6H PRN PRN Reason: PAIN Last Admin: 06/30/17 06:06 Dose: 650 mg Enoxaparin Sodium (Lovenox -) 40 mg SQ DAILY [facility] Last Admin: 06/30/17 10:21 Dose: 40 mg Levofloxacin (Levaquin 750 Mg Premixed Ivpb -) 750 mg in 150 mls @ 100 mls/hr IVPB HS [facility] Last Admin: 06/29/17 22:28 Dose: 100 mls/hr Metronidazole (Flagyl 500mg Premixed Ivpb -) 500 mg in 100 mls @ 100 mls/hr IVPB Q6H-IV [facility] Last Admin: 06/30/17 09:02 Dose: 100 mls/hr Potassium Chloride/Dextrose/Sod Cl (D5-1/2ns+20 Meq Kcl -) 20 meq in 1,000 mls @ 63 mls/hr IV ASDIR [facility] Insulin Aspart (Novolog Vial Sliding Scale -) 1 vial SQ BID [facility] PRN Reason: Protocol Last Admin: 06/30/17 10:53 Dose: Not Given Levetiracetam (Keppra -) 250 mg PO BID [facility] Last Admin: 06/30/17 10:20 Dose: 250 mg Metoprolol Tartrate (Lopressor -) 50 mg PO BID [facility] Last Admin: 06/30/17 10:20 Dose: 50 mg Pantoprazole Sodium (Protonix -) 40 mg PO BID [facility] Last Admin: 06/30/17 10:20 Dose: 40 mg - Objective Vital Signs: Vital Signs Temperature 98.9 F 06/30/17 10:18 Pulse Rate 85 06/30/17 10:18 Respiratory Rate 20 06/30/17 10:18 Blood Pressure 157/62 06/30/17 10:18 O2 Sat by Pulse Oximetry (%) 97 06/29/17 21:00 Constitutional: Yes: Well Nourished, No Distress, Calm Eyes: Yes: Conjunctiva Clear, EOM Intact HENT: Yes: Atraumatic, Normocephalic Gastrointestinal: Yes: Soft, Hypoactive Bowel Sounds, Tenderness (LLQ, less LUQ , no R/G). No: Distention Genitourinary: Yes: [place] Present. No: Hematuria Extremities: No: Cool, Cyanosis Integumentary: No: Jaundice, Rash Neurological: Yes: Alert, Oriented Labs: CBC, BMP 06/30/17 07:20 06/30/17 07:20 Problem List - Problems (1) Diverticulitis of colon with perforation Assessment/Plan: presumed microperforation of diverticulosis with adjacent inflammation of SB and abdominal wall treating with antibiotics as diverticulitis with contained microperf tenderness focal in LLQ, controlled with prn tylenol improving steadily on antibiotics, now tolerating clears would not advance quite yet, but will decrease IVF po tylenol prn GI/DVT prophylaxis - since left upper body discomfort could be related to reflux , changed to PPI, would consider Maalox next time it occurs to see if it responds as well (current antibiotics also cover E. faecalis grown from initial urine culture) Code(s): K57.20 - DVTRCLI OF LG INT W PERFORATION AND ABSCESS W/O BLEEDING Qualifiers: Diverticulitis bleeding: without bleeding Qualified Code(s): K57.20 - Diverticulitis of large intestine with perforation and abscess without bleeding (2) Diabetes mellitus type 2, controlled, without complications Assessment/Plan: FS with SSI while NPO sugars below 100 on labs D5 1/2 NS + 20 mEq KCl ok for fluids pt not on metformin or other oral meds at home anymore (since January) when diet does get advanced, will go to diabetic Code(s): E11.9 - TYPE 2 DIABETES MELLITUS WITHOUT COMPLICATIONS Qualifiers: Diabetes mellitus care home insulin use: without care home use Qualified Code(s): E11.9 - Type 2 diabetes mellitus without complications (3) Hypertension Assessment/Plan: continue metoprolol holding asa and hctz for now Code(s): I10 - ESSENTIAL (PRIMARY) HYPERTENSION Qualifiers: Hypertension type: essential hypertension Qualified Code(s): I10 - Essential (primary) hypertension (4) Cystocele Assessment/Plan: recurrent, s/p multiple repairs with mesh and partial mesh removal/fascial graft pt manages conservatively at home but has urinary retention PLANS to learn self-catheterization as outpatient, will reschedule appt with her doctor for this [place] to maintain bladder decompression while here would LEAVE [place] on discharge until pt has appt to learn self-cathing -- has NOT YET DONE SO discussed this with patient and daughter, who understand and agree with plan alternatively, could begin learning self-catheterization here if possible -- will have primary team check into Code(s): N81.10 - CYSTOCELE, UNSPECIFIED Qualifiers: Cystocele location: midline Qualified Code(s): N81.11 - Cystocele, midline (5) Seizure Assessment/Plan: Keppra level low continue home med, pt understands she will need to take bid as prescribed at home PMD can recheck Code(s): R56.9 - UNSPECIFIED CONVULSIONS
--- NOTE | 2017-06-30 15:46 | PN ---
Teaching Attending Note Name of Resident: Amber Julian ATTENDING PHYSICIAN STATEMENT I saw and evaluated the patient. I reviewed the resident's note and discussed the case with the resident. I agree with the resident's findings and plan as documented. SUBJECTIVE:tolerating clears. pain is controlled. multiple BM's. denies Cp, SOB , fever, chills, N/V/C/D had screening colonoscopy with the past 10 years. normal per pt OBJECTIVE: Last Vital Signs Temp Pulse Resp BP Pulse Ox 98 F 97 H 18 155/83 97 06/30/17 14:49 06/30/17 14:49 06/30/17 14:49 06/30/17 14:49 06/29/17 21:00 General NAD CV S1 S2 + abdomen soft NT. mild distended. hypoactive BS ASSESSMENT AND PLAN: 76 yo F with PMHx of HTN, NIDDM, bladder/vaginal prolapse, cystocele s/p multiple pelvic surgeries, recently placed on intermittent straight cath comes with Acute perforated diverticulitis 1. Acute perforate descending colon diverticulitis- clinically improved. medical management. diet advanced to clears. tolerating well. cont Levaquin/ Flagyl day 5. will slowly advance diet as tolerated. Surgery on board. will need colonsocopy in the 6-8 weeks 2. Mild SBO- resolved. tolerating diet. monitor 3. cystocele- s/p multiple pelvic surgeries. currently with rogers. would mantain rogers at present time. consider teaching pt here how to self catheterize prior to discharge. to f/u with as outpatient 4. DM- improving now that diet is advanced. diet controlled at home. will resume diet controlled. d/c IVF once tolerating diet 5. HTN- above goal. will start antihypertensives as diet is advanced. titrate to optimize control 6. Hypokalemia- resolved 7. DVT ppx- lovenox
[2017-07-01] MEDS: ACETAMINOPHEN 325 MG TABLET (FP) PO PRN (07:29)
[2017-07-01 08:06] LABS: BASO % 0.7 % (0-2.0); EOS % 0.5 % (0-4.5); HEMATOCRIT 33.1 % (32.4-45.2); HEMOGLOBIN 10.9 GM/dL (10.7-15.3); LYMPH % 18.8 % (8-40); MCH 31.1 pg (25.7-33.7); MEAN CELL VOLUME 94.2 fl (80-96); MEAN PLT VOLUME 8.4 fl (7.5-11.1); MONO % 7.1 % (3.8-10.2); NEUT % 72.9 % (42.8-82.8); PLATELET COUNT 250 K/MM3 (134-434); RBC 3.52 M/mm3 (3.60-5.2); RDW 14.1 % (11.6-15.6)
[2017-07-01 08:19] LABS: CHLORIDE 110 mmol/L (98-107); POTASSIUM 3.5 mmol/L (3.5-5.1); SODIUM 145 mmol/L (136-145)
[2017-07-01 08:50] LABS: ALBUMIN 2.9 g/dl (3.4-5.0); ALK PHOS 54 U/L (45-117); ANION GAP 13 (8-16); BILIRUBIN,TOTAL 0.4 mg/dL (0.2-1.0); BLOOD UREA NITROGEN 5 mg/dL (7-18); CALCIUM 8.5 mg/dL (8.5-10.1); CO2 22 mmol/L (21-32); CREATININE 0.7 mg/dL (0.55-1.02); GLUCOSE,RANDOM 93 mg/dL (74-106); MAGNESIUM 2.3 mg/dL (1.8-2.4); PHOSPHOROUS 3.3 mg/dL (2.5-4.9); SGOT/AST 53 U/L (15-37); SGPT/ALT 27 U/L (12-78); TOT PROT 6.3 g/dl (6.4-8.2)
--- NOTE | 2017-07-01 09:23 | PN ---
Physical Exam: SUBJECTIVE: Patient seen and examined. Tolerated Clears yesterday. O/N c/o abrupt sharp pain in her LLQ 11/20 that lasted only a few seconds and was relieved by repositioning. No nausea, vomiting or abdominal pain with food or movement. Ambulating to bathroom and around unit. Denies fever or chills. OBJECTIVE: Vital Signs Period Temp Pulse Resp BP Sys/Armendariz Pulse Ox Last 24 Hr 98 F-98.9 F 85-108 18-20 146-180/62-83 98-98 GENERAL: lying comfortably in bed, aaox3, nad HEART: rrr, normal s1/s2 LUNGS: CTAB ABDOMEN: soft, mildly distended, ttp LLQ, no guarding or rebound tenderness, hypoactive bowel sounds NEURO: CN II-XII grossly intact, but not formally tested EXTREMITIES: pulses 2+ DP b/l, motor strength 5/5, no peripheral edema CBC, BMP 07/01/17 07:20 07/01/17 07:20 Hepatic Panel Total Bilirubin 0.4 mg/dL (0.2-1.0) 07/01/17 07:20 Direct Bilirubin 0.2 mg/dL (0.0-0.2) 06/27/17 06:45 AST 53 U/L (15-37) H 07/01/17 07:20 ALT 27 U/L (12-78) 07/01/17 07:20 Alkaline Phosphatase 54 U/L (45-117) 07/01/17 07:20 Albumin 2.9 g/dl (3.4-5.0) L 07/01/17 07:20 Active Medications Acetaminophen (Tylenol -) 650 mg PO Q6H PRN PRN Reason: PAIN Last Admin: 07/01/17 07:29 Dose: 650 mg Amlodipine Besylate (Norvasc -) 5 mg PO DAILY [facility] Last Admin: 07/01/17 14:17 Dose: 5 mg Enoxaparin Sodium (Lovenox -) 40 mg SQ DAILY [facility] Last Admin: 07/01/17 09:33 Dose: 40 mg Levofloxacin (Levaquin 750 Mg Premixed Ivpb -) 750 mg in 150 mls @ 100 mls/hr IVPB HS [facility] Last Admin: 06/30/17 21:56 Dose: 100 mls/hr Metronidazole (Flagyl 500mg Premixed Ivpb -) 500 mg in 100 mls @ 100 mls/hr IVPB Q6H-IV [facility] Last Admin: 07/01/17 14:41 Dose: 100 mls/hr Insulin Aspart (Novolog Vial Sliding Scale -) 1 vial SQ BID [facility] PRN Reason: Protocol Last Admin: 07/01/17 10:53 Dose: Not Given Levetiracetam (Keppra -) 250 mg PO BID [facility] Last Admin: 07/01/17 09:32 Dose: 250 mg Metoprolol Tartrate (Lopressor -) 50 mg PO BID [facility] Last Admin: 07/01/17 09:32 Dose: 50 mg Pantoprazole Sodium (Protonix -) 40 mg PO BID [facility] Last Admin: 07/01/17 09:32 Dose: 40 mg ASSESSMENT/PLAN: 76yo F with PMH of NIDDM, hysterectomy, prolapsed bladder/vagina who p/w acute LLQ abdominal pain and found to have perforated diverticulitis. #sepsis 2/2 acute perforated diverticulitis, no leukocytosis or fever >72H -Surgery consulted -Levoquin 750 IV QD/Flagyl 500 IV Q6h, Day 6 -Serial Abd exams -Continue with Clears today, reassess tomorrow to advance to Regular -Tylenol PRN for pain #chronic urinary Retention -remove rogers on discharge, will teach self-cath prior to d/c with close f/u #Diabetes -BGMs/ISS BID, may need more frequest checks when diet advances #Hypertension -metoprolol 50mg PO BID -start Norvasc 5mg PO QD -Hold ASA/HCTZ #h/o seizures; pt reports following with Dr. Thrasher -c/w home Keppra 250mg PO BID #FEN: IVF / lytes wnl / clears #PPX: Lovenox 40mg SQ daily #Disposition: M/S FULL code d/w Dr. Donavon Julian MD PGY1- Internal Medicine Visit type - Emergency Visit Emergency Visit: No - New Patient This patient is new to me today: No - Critical Care Critical Care patient: No
[2017-07-01] MEDS: PANTOPRAZOLE 40 MG TABLET (FP) PO SCH ×2 (09:32→21:19)
[2017-07-01] MEDS: METOPROLOL TARTRATE 50 MG TABLET (FP) PO SCH ×2 (09:32→21:20)
[2017-07-01] MEDS: levETIRAcetam 250 MG TABLET (FP) PO SCH ×2 (09:32→21:19)
[2017-07-01] MEDS: ENOXAPARIN NA (PORCINE) 40 MG/0.4 ML DISP.SYRIN SQ SCH (09:33)
[2017-07-01] MEDS: INSULIN SLIDING SCALE (NOVOLOG) 1 VIAL SQ SCH ×2 (10:53→21:20)
--- NOTE | 2017-07-01 13:08 | PN ---
Teaching Attending Note Name of Resident: Amber Julian ATTENDING PHYSICIAN STATEMENT I saw and evaluated the patient. I reviewed the resident's note and discussed the case with the resident. I agree with the resident's findings and plan as documented. SUBJECTIVE:c/o LLQ and suprapbic pain. not related to eating. pain started mostly after having 3 BM's. no nausea or vomiting.denies CP, SOB, fever, chills , N/V only had small BM the other day prior to that no BM x5days OBJECTIVE: Last Vital Signs Temp Pulse Resp BP Pulse Ox 99.2 F 87 18 162/94 98 07/01/17 10:00 07/01/17 10:00 07/01/17 10:00 07/01/17 10:00 06/30/17 21:00 General NAD CV S1 S2 + abdomen soft NT. mild distended. +LLQ and suprapubic tenderness +tympanic on percussion. normoactive BS ASSESSMENT AND PLAN: 76 yo F with PMHx of HTN, NIDDM, seizure, bladder/vaginal prolapse, cystocele s /p multiple pelvic surgeries, recently placed on intermittent straight cath comes with Acute perforated diverticulitis 1. Acute perforate descending colon diverticulitis- clinically improved. some LLQ pain which can be related to rogers vs passage of BM. will check bladder scan to evaluate if rogers is blocked and re-assess later today to see if pain is persisting or resolved. if persist will need to consider repeat CT scan of abdomen however low suspicion for worsening perforation as pt is hemodynamically stable and does not appear toxic. cont clears at this time. cont Levaquin/Flagyl day 6. Surgery on board. will need colonsocopy in the 6-8 weeks 2. Mild SBO- resolved. tolerating diet. monitor 3. cystocele- s/p multiple pelvic surgeries. currently with rogers. would mantain rogers at present time. consider teaching pt here how to self catheterize prior to discharge. to f/u with as outpatient 4. DM- improving now that diet is advanced. diet controlled at home. will resume diet controlled. 5. HTN- above goal. start norvasc 5mg. titrate to optimize 6. Seizure- no seizure like activity. cont keppra 7. Hypokalemia- resolved 8. DVT ppx- lovenox
[2017-07-01] MEDS: amLODIPine BESYLATE 5 MG TABLET (FP) PO SCH (14:17)
--- NOTE | 2017-07-01 15:32 | PN ---
Progress Note, Physician History of Present Illness: Pt being treated for microperf diverticulitis with adjacent jejunal inflammation and mild SBO. Pain a little less every day, on IVF and antibiotics. Vallejo with very light yellow urine in tubing. Had loose BMs today. Tolerating clears with no nausea or vomiting. No increase in pain or tenderness , though still somewhat tender. Ambulating. Pt still c/o pain and itching in area of left chest wall - on careful discrimination, she indicates left aspect of left breast, mainly over an area with hyperpigmented serpentine irregular ring-like slightly raised lesion. She states it had always been there, but enlarged outward as she grew. - Current Medication List Current Medications: Active Medications Acetaminophen (Tylenol -) 650 mg PO Q6H PRN PRN Reason: PAIN Last Admin: 07/01/17 07:29 Dose: 650 mg Amlodipine Besylate (Norvasc -) 5 mg PO DAILY [facility] Last Admin: 07/01/17 14:17 Dose: 5 mg Enoxaparin Sodium (Lovenox -) 40 mg SQ DAILY [facility] Last Admin: 07/01/17 09:33 Dose: 40 mg Levofloxacin (Levaquin 750 Mg Premixed Ivpb -) 750 mg in 150 mls @ 100 mls/hr IVPB HS ERON Last Admin: 06/30/17 21:56 Dose: 100 mls/hr Metronidazole (Flagyl 500mg Premixed Ivpb -) 500 mg in 100 mls @ 100 mls/hr IVPB Q6H-IV [facility] Last Admin: 07/01/17 14:41 Dose: 100 mls/hr Insulin Aspart (Novolog Vial Sliding Scale -) 1 vial SQ BID ERON PRN Reason: Protocol Last Admin: 07/01/17 10:53 Dose: Not Given Levetiracetam (Keppra -) 250 mg PO BID [facility] Last Admin: 07/01/17 09:32 Dose: 250 mg Metoprolol Tartrate (Lopressor -) 50 mg PO BID [facility] Last Admin: 07/01/17 09:32 Dose: 50 mg Pantoprazole Sodium (Protonix -) 40 mg PO BID [facility] Last Admin: 07/01/17 09:32 Dose: 40 mg - Objective Vital Signs: Vital Signs Temperature 99.2 F 07/01/17 10:00 Pulse Rate 87 07/01/17 10:00 Respiratory Rate 18 07/01/17 10:00 Blood Pressure 162/94 07/01/17 10:00 O2 Sat by Pulse Oximetry (%) 98 06/30/17 21:00 Constitutional: Yes: Well Nourished, No Distress, Calm Eyes: Yes: Conjunctiva Clear, EOM Intact HENT: Yes: Atraumatic, Normocephalic Gastrointestinal: Yes: Soft, Tenderness (LLQ>LUQ, less than yesterday) Genitourinary: Yes: Vallejo Present. No: Hematuria Breast(s): Yes: Left, Skin Changes (irregular hyperpigmented serpentine ring to left of areola, slightly raised, mildly tender, itchy, no underlying mass, no erythema (has been present since admission but not listed in notes)) Extremities: No: Cool, Cyanosis Integumentary: No: Jaundice, Rash Neurological: Yes: Alert, Oriented Labs: CBC, BMP 07/01/17 07:20 07/01/17 07:20 - ....Imaging X-ray: Pending Problem List - Problems (1) Diverticulitis of colon with perforation Assessment/Plan: presumed microperforation of diverticulosis with adjacent inflammation of SB and abdominal wall treating with antibiotics as diverticulitis with contained microperf tenderness focal in LLQ, controlled with prn tylenol improving steadily on antibiotics, now tolerating clears will check AXR - if enteral contrast from CT primarily in colon or evacuated, will advance to fulls tonight, consider food tomorrow po tylenol prn GI/DVT prophylaxis (current antibiotics also cover E. faecalis grown from initial urine culture) unclear what pigmented skin lesion on left breast may represent, especially with pain and itching suggest considering dermatology consult or outpatient followup with derm or breast surgeon Code(s): K57.20 - DVTRCLI OF LG INT W PERFORATION AND ABSCESS W/O BLEEDING Qualifiers: Diverticulitis bleeding: without bleeding Qualified Code(s): K57.20 - Diverticulitis of large intestine with perforation and abscess without bleeding (2) Diabetes mellitus type 2, controlled, without complications Assessment/Plan: FS with SSI sugars below 100 on labs pt not on metformin or other oral meds at home anymore (since January) when diet does get advanced, will go to diabetic Code(s): E11.9 - TYPE 2 DIABETES MELLITUS WITHOUT COMPLICATIONS Qualifiers: Diabetes mellitus halfway insulin use: without terminal computer operator use Qualified Code(s): E11.9 - Type 2 diabetes mellitus without complications (3) Hypertension Assessment/Plan: continue metoprolol holding asa and hctz for now Code(s): I10 - ESSENTIAL (PRIMARY) HYPERTENSION Qualifiers: Hypertension type: essential hypertension Qualified Code(s): I10 - Essential (primary) hypertension (4) Cystocele Assessment/Plan: recurrent, s/p multiple repairs with mesh and partial mesh removal/fascial graft pt manages conservatively at home but has urinary retention PLANS to learn self-catheterization as outpatient, will reschedule appt with her doctor for this Vallejo to maintain bladder decompression while here would LEAVE VALLEJO on discharge until pt has appt to learn self-cathing -- has NOT YET DONE SO discussed this with patient and daughter, who understand and agree with plan alternatively, could begin learning self-catheterization here if possible -- pt states she has been able to watch a video on the process Code(s): N81.10 - CYSTOCELE, UNSPECIFIED Qualifiers: Cystocele location: midline Qualified Code(s): N81.11 - Cystocele, midline (5) Seizure Assessment/Plan: Keppra level low continue home med, pt understands she will need to take bid as prescribed at home PMD can recheck Code(s): R56.9 - UNSPECIFIED CONVULSIONS
[2017-07-02 08:13] LABS: HEMATOCRIT 35.2 % (32.4-45.2); HEMOGLOBIN 11.7 GM/dL (10.7-15.3); MCH 31.3 pg (25.7-33.7); MCHC 33.2 g/dl (32.0-36.0); MEAN CELL VOLUME 94.1 fl (80-96); MEAN PLT VOLUME 8.2 fl (7.5-11.1); PLATELET COUNT 277 K/MM3 (134-434); RBC 3.74 M/mm3 (3.60-5.2); RDW 14.6 % (11.6-15.6); WHITE BLOOD COUNT 7.6 K/mm3 (4.0-10.0)
[2017-07-02] MEDS ORDERED: PT OWN MED DRAWER 7, Y5N ONE ×4 (08:33→18:11)
[2017-07-02 08:44] LABS: CHLORIDE 107 mmol/L (98-107); POTASSIUM 3.4 mmol/L (3.5-5.1); SODIUM 144 mmol/L (136-145)
[2017-07-02 08:51] LABS: ALK PHOS 54 U/L (45-117); ANION GAP 15 (8-16); BILIRUBIN,TOTAL 0.4 mg/dL (0.2-1.0); BLOOD UREA NITROGEN 6 mg/dL (7-18); CALCIUM 8.4 mg/dL (8.5-10.1); CO2 22 mmol/L (21-32); CREATININE 0.7 mg/dL (0.55-1.02); GLUCOSE,RANDOM 83 mg/dL (74-106); SGOT/AST 36 U/L (15-37); SGPT/ALT 30 U/L (12-78); TOT PROT 6.2 g/dl (6.4-8.2)
[2017-07-02] MEDS ORDERED: diphenhydrAMINE HCL 25 MG CAPSULE (FP) PO ONE (09:00)
[2017-07-02] MEDS: amLODIPine BESYLATE 5 MG TABLET (FP) PO SCH (09:46)
[2017-07-02] MEDS: METOPROLOL TARTRATE 50 MG TABLET (FP) PO SCH ×2 (09:46→21:18)
[2017-07-02] MEDS: levETIRAcetam 250 MG TABLET (FP) PO SCH ×2 (09:46→21:18)
[2017-07-02] MEDS: PANTOPRAZOLE 40 MG TABLET (FP) PO SCH ×2 (09:47→21:18)
[2017-07-02] MEDS: ENOXAPARIN NA (PORCINE) 40 MG/0.4 ML DISP.SYRIN SQ SCH (09:47)
[2017-07-02] MEDS ORDERED: INSULIN (NOVOLOG) ASPART 100 UNITS/ML 10ML VIAL ONE (11:36)
[2017-07-02] MEDS: metroNIDAZOLE 250 MG TABLET PO SCH ×3 (11:41→18:24)
[2017-07-02] MEDS: INSULIN SLIDING SCALE (NOVOLOG) 1 VIAL SQ SCH ×2 (11:43→21:23)
--- NOTE | 2017-07-02 13:42 | PN ---
Teaching Attending Note Name of Resident: Amber Julian ATTENDING PHYSICIAN STATEMENT I saw and evaluated the patient. I reviewed the resident's note and discussed the case with the resident. I agree with the resident's findings and plan as documented. SUBJECTIVE:c/o pruritis and rash on back and abdomen. started last night. relieved with benadryl. abdominal pain has resolved. tolerating regular diet. denies CP, SOB< fever, chills, N/V/C/D. no numbness or tingling of the tongue or throat OBJECTIVE: Last Vital Signs Temp Pulse Resp BP Pulse Ox 98.6 F 101 H 18 156/80 99 07/02/17 10:00 07/02/17 10:00 07/02/17 10:00 07/02/17 10:00 07/02/17 09:00 General NAD abdomen soft NT/ND normoactive BS Skin diffuse macular rash on back ASSESSMENT AND PLAN: 76 yo F with PMHx of HTN, NIDDM, seizure, bladder/vaginal prolapse, cystocele s /p multiple pelvic surgeries, recently placed on intermittent straight cath comes with Acute perforated diverticulitis 1. Sepsis due to Acute perforate descending colon diverticulitis- clinically improved. abdominal pain resolved. tolerating diet. will advance to low residue diet. \ cont Levaquin/Flagyl day 7. Surgery on board. will need colonsocopy in the 6-8 weeks 2. Diffuse rash- high suspicion for drug reaction. no signs of possible anaphylaxis. likely due to abx even though on for 7 days. agreeable to continuing abx for now as she is improving and take benadryl as needed. 3. Mild SBO- resolved. tolerating diet. monitor 4. cystocele- s/p multiple pelvic surgeries. currently with rogers. would mantain rogers as pt does not want to learn here how to self-cath. to f/u with as outpatient 5. DM- diet controlled. no coverage required. cont diet control 6. HTN- improved. cont norvasc and metoprolol. 7. Seizure- no seizure like activity. cont keppra 8. Hypokalemia- resolved 9. DVT ppx- lovenox 10. d/c planning tomorrow
[2017-07-02] MEDS ORDERED: POTASSIUM CHLORIDE ORAL LIQUID 20 MEQ/15 ML PO ONE (13:45)
--- NOTE | 2017-07-02 14:25 | PN ---
Physical Exam: SUBJECTIVE: Patient seen and examined. C/o itching since last night across anterior chest and upper back - given Benadryl; No BMs today; Tolerated Clears, abdominal pain improved, no fever, chills, n/v/diarrhea OBJECTIVE: Vital Signs Period Temp Pulse Resp BP Sys/Armendariz Pulse Ox Last 24 Hr 97.8 F-99.8 F 91-101 18-18 144-156/64-80 97-99 GENERAL: lying comfortably in bed, aaox3, nad HEENT: no lip or tongue swelling HEART: rrr, normal s1/s2 LUNGS: CTAB ABDOMEN: soft, non-distended, mild tenderness focally LLQ, +bowel sounds NEURO: CN II-XII grossly intact, but not formally tested EXTREMITIES: pulses 2+ DP b/l, motor strength 5/5, no peripheral edema SKIN: diffuse macular rash across upper pack and anterior chest CBC, BMP 07/02/17 06:20 07/02/17 06:20 Hepatic Panel Total Bilirubin 0.4 mg/dL (0.2-1.0) 07/02/17 06:20 Direct Bilirubin 0.2 mg/dL (0.0-0.2) 06/27/17 06:45 AST 36 U/L (15-37) 07/02/17 06:20 ALT 30 U/L (12-78) 07/02/17 06:20 Alkaline Phosphatase 54 U/L (45-117) 07/02/17 06:20 Albumin 3.0 g/dl (3.4-5.0) L 07/02/17 06:20 Active Medications Acetaminophen (Tylenol -) 650 mg PO Q6H PRN PRN Reason: PAIN Last Admin: 07/01/17 07:29 Dose: 650 mg Amlodipine Besylate (Norvasc -) 5 mg PO DAILY [facility] Last Admin: 07/02/17 09:46 Dose: 5 mg Enoxaparin Sodium (Lovenox -) 40 mg SQ DAILY [facility] Last Admin: 07/02/17 09:47 Dose: 40 mg Insulin Aspart (Novolog Vial Sliding Scale -) 1 vial SQ BID [facility] PRN Reason: Protocol Last Admin: 07/02/17 11:43 Dose: Not Given Levetiracetam (Keppra -) 250 mg PO BID [facility] Last Admin: 07/02/17 09:46 Dose: 250 mg Levofloxacin (Levaquin) 750 mg PO DAILY [facility] Metoprolol Tartrate (Lopressor -) 50 mg PO BID [facility] Last Admin: 07/02/17 09:46 Dose: 50 mg Metronidazole (Flagyl -) 500 mg PO Q6HPO [facility] Last Admin: 07/02/17 11:45 Dose: 500 mg Pantoprazole Sodium (Protonix -) 40 mg PO BID [facility] Last Admin: 07/02/17 09:47 Dose: 40 mg ASSESSMENT/PLAN: 76yo F with PMH of NIDDM, hysterectomy, prolapsed bladder/vagina who p/w acute LLQ abdominal pain and found to have perforated diverticulitis. #sepsis 2/2 acute perforated diverticulitis, no leukocytosis or fever >72H -Surgery consulted -Levoquin 750 IV QD/Flagyl 500 IV Q6h, Day 7 --> switch to PO today, will d/c for 1 more week -Serial Abd exams -Advance diet to regular -Tylenol PRN for pain #chronic urinary Retention -remove rogers on discharge, will learn to self-cath as OP #Diabetes -BGMs/ISS BID #Hypertension -metoprolol 50mg PO BID -start Norvasc 5mg PO QD -Hold ASA/HCTZ #h/o seizures; pt reports following with Dr. Thrasher -c/w home Keppra 250mg PO BID #FEN: PO intake / lytes wnl / advanced to low residue, DM, Na controlled #PPX: Lovenox 40mg SQ daily #Disposition: M/S, planning for discharge tomorrow FULL code d/w Dr. Donavon Julian MD PGY1- Internal Medicine Visit type - Emergency Visit Emergency Visit: No - New Patient This patient is new to me today: No - Critical Care Critical Care patient: No
[2017-07-02] MEDS: diphenhydrAMINE HCL 25 MG CAPSULE (FP) PO PRN (18:24)
--- NOTE | 2017-07-02 20:09 | PN ---
Progress Note, Physician History of Present Illness: Pt being treated for microperf diverticulitis with adjacent jejunal inflammation and mild SBO. Pain less every day, on IVF and antibiotics, not using pain med. Jeff with dark yellow urine. Had small BM today with effort, pain but pain went away when sat/lay down again. Tolerating diet with no nausea or vomiting. No increase in pain or tenderness, though still somewhat tender. Ambulating. Niece at bedside. - Current Medication List Current Medications: Active Medications Acetaminophen (Tylenol -) 650 mg PO Q6H PRN PRN Reason: PAIN Last Admin: 07/01/17 07:29 Dose: 650 mg Amlodipine Besylate (Norvasc -) 5 mg PO DAILY [facility] Last Admin: 07/02/17 09:46 Dose: 5 mg Diphenhydramine HCl (Benadryl -) 25 mg PO Q6H PRN PRN Reason: FOR ITCHING Last Admin: 07/02/17 18:24 Dose: 25 mg Enoxaparin Sodium (Lovenox -) 40 mg SQ DAILY [facility] Last Admin: 07/02/17 09:47 Dose: 40 mg Insulin Aspart (Novolog Vial Sliding Scale -) 1 vial SQ BID [facility] PRN Reason: Protocol Last Admin: 07/02/17 11:43 Dose: Not Given Levetiracetam (Keppra -) 250 mg PO BID [facility] Last Admin: 07/02/17 09:46 Dose: 250 mg Levofloxacin (Levaquin) 750 mg PO DAILY [facility] Metoprolol Tartrate (Lopressor -) 50 mg PO BID [facility] Last Admin: 07/02/17 09:46 Dose: 50 mg Metronidazole (Flagyl -) 500 mg PO Q6HPO [facility] Last Admin: 07/02/17 18:24 Dose: 500 mg Pantoprazole Sodium (Protonix -) 40 mg PO BID [facility] Last Admin: 07/02/17 09:47 Dose: 40 mg - Objective Vital Signs: Vital Signs Temperature 99.8 F H 07/02/17 16:37 Pulse Rate 110 H 07/02/17 16:37 Respiratory Rate 18 07/02/17 16:37 Blood Pressure 108/71 07/02/17 16:37 O2 Sat by Pulse Oximetry (%) 99 07/02/17 09:00 Constitutional: Yes: Well Nourished, No Distress, Calm Eyes: Yes: Conjunctiva Clear, EOM Intact HENT: Yes: Atraumatic, Normocephalic Gastrointestinal: Yes: Soft, Tenderness (LLQ > LUQ, no eduardo/guard). No: Distention ...Rectal Exam: Yes: Deferred Genitourinary: Yes: Jeff Present. No: Hematuria Breast(s): Yes: Left, Skin Changes (no changes today, hyperpigmented lesion on left aspect of left breast) Extremities: No: Cool, Cyanosis Integumentary: No: Jaundice, Rash Neurological: Yes: Alert, Oriented Labs: CBC, BMP 07/02/17 06:20 07/02/17 06:20 Problem List - Problems (1) Diverticulitis of colon with perforation Assessment/Plan: presumed microperforation of diverticulosis with adjacent inflammation of SB and abdominal wall treating with antibiotics as diverticulitis with contained microperf tenderness focal in LLQ, controlled without meds, no pain unless palpated improving steadily on antibiotics, now tolerating diet po tylenol prn GI/DVT prophylaxis (current antibiotics also cover E. faecalis grown from initial urine culture) Code(s): K57.20 - DVTRCLI OF LG INT W PERFORATION AND ABSCESS W/O BLEEDING Qualifiers: Diverticulitis bleeding: without bleeding Qualified Code(s): K57.20 - Diverticulitis of large intestine with perforation and abscess without bleeding (2) Diabetes mellitus type 2, controlled, without complications Assessment/Plan: FS with SSI sugars below 100 on labs pt not on metformin or other oral meds at home anymore (since January) on diabetic diet Code(s): E11.9 - TYPE 2 DIABETES MELLITUS WITHOUT COMPLICATIONS Qualifiers: Diabetes mellitus terminal gauger insulin use: without terminal gauger use Qualified Code(s): E11.9 - Type 2 diabetes mellitus without complications (3) Hypertension Assessment/Plan: continue metoprolol holding asa and hctz for now Code(s): I10 - ESSENTIAL (PRIMARY) HYPERTENSION Qualifiers: Hypertension type: essential hypertension Qualified Code(s): I10 - Essential (primary) hypertension (4) Cystocele Assessment/Plan: recurrent, s/p multiple repairs with mesh and partial mesh removal/fascial graft pt manages conservatively at home but has urinary retention PLANS to learn self-catheterization as outpatient, will reschedule appt with her doctor for this recommended discussing plan and schedule with doctor on phone tomorrow - and whether to leave Jeff to maintain bladder decompression on discharge until she has appt to learn self-cathing she feels it will be at least somewhat difficult because of her bladder prolapse alternatively, could begin learning self-catheterization here if possible -- pt states she had been able to watch a video on the process Code(s): N81.10 - CYSTOCELE, UNSPECIFIED Qualifiers: Cystocele location: midline Qualified Code(s): N81.11 - Cystocele, midline (5) Seizure Assessment/Plan: Keppra level low continue home med, pt understands she will need to take bid as prescribed at home PMD can recheck Code(s): R56.9 - UNSPECIFIED CONVULSIONS
[2017-07-02] MEDS: levoFLOXacin 750 MG TABLET PO SCH (21:18)
[2017-07-03] MEDS: metroNIDAZOLE 250 MG TABLET PO SCH ×4 (00:06→17:17)
[2017-07-03] MEDS: diphenhydrAMINE HCL 25 MG CAPSULE (FP) PO PRN (00:09)
[2017-07-03 07:38] LABS: HEMOGLOBIN 11.3 GM/dL (10.7-15.3); MCH 31.3 pg (25.7-33.7); MCHC 33.1 g/dl (32.0-36.0); MEAN CELL VOLUME 94.3 fl (80-96); PLATELET COUNT 304 K/MM3 (134-434); RBC 3.61 M/mm3 (3.60-5.2); RDW 14.3 % (11.6-15.6); WHITE BLOOD COUNT 6.4 K/mm3 (4.0-10.0)
[2017-07-03 08:54] LABS: CHLORIDE 107 mmol/L (98-107); POTASSIUM 3.8 mmol/L (3.5-5.1); SGOT/AST 26 U/L (15-37); SODIUM 142 mmol/L (136-145)
[2017-07-03 08:58] LABS: ALK PHOS 50 U/L (45-117); ANION GAP 9 (8-16); BILIRUBIN,TOTAL 0.3 mg/dL (0.2-1.0); BLOOD UREA NITROGEN 7 mg/dL (7-18); CALCIUM 8.5 mg/dL (8.5-10.1); CO2 26 mmol/L (21-32); CREATININE 0.8 mg/dL (0.55-1.02); GLUCOSE,RANDOM 93 mg/dL (74-106); MAGNESIUM 1.9 mg/dL (1.8-2.4); SGPT/ALT 23 U/L (12-78); TOT PROT 6.3 g/dl (6.4-8.2)
--- NOTE | 2017-07-03 09:57 | DS ---
Physical Exam: SUBJECTIVE: Patient seen and examined. Tolerated Regular, low residue diet yesterday. Had BM yesterday. Abdominal pain improved. No fever, chills, n/v/ diarrhea. OBJECTIVE: Vital Signs Period Temp Pulse Resp BP Sys/Armendariz Pulse Ox Last 24 Hr 98.5 F-99.8 F 91-110 18-18 108-156/59-80 95 PHYSICAL EXAM GENERAL: lying comfortably in bed, aaox3, nad HEENT: no lip or tongue swelling HEART: rrr, normal s1/s2 LUNGS: CTAB ABDOMEN: soft, non-distended, mild tenderness focally LLQ, +bowel sounds NEURO: CN II-XII grossly intact, but not formally tested EXTREMITIES: pulses 2+ DP b/l, motor strength 5/5, no peripheral edema SKIN: diffuse macular rash across upper pack and anterior chest CBC, BMP 07/03/17 07:15 07/03/17 07:15 Hepatic Panel Total Bilirubin 0.3 mg/dL (0.2-1.0) D 07/03/17 07:15 Direct Bilirubin 0.2 mg/dL (0.0-0.2) 06/27/17 06:45 AST 26 U/L (15-37) 07/03/17 07:15 ALT 23 U/L (12-78) 07/03/17 07:15 Alkaline Phosphatase 50 U/L (45-117) 07/03/17 07:15 Albumin 3.0 g/dl (3.4-5.0) L 07/03/17 07:15 Microbiology 06/25/17 22:50 Blood - Peripheral Venous Blood Culture - Final NO GROWTH AFTER 5 DAYS INCUBATION 06/25/17 22:50 Blood - Peripheral Venous Blood Culture - Final NO GROWTH AFTER 5 DAYS INCUBATION 06/25/17 16:16 Urine - Urine Clean Catch Urine Culture - Final Enterococcus Faecalis HOSPITAL COURSE: Date of Admission:06/25/17 Date of Discharge: 07/03/17 Pre-admission Course: 76yo woman with PMH NIDDM (diet controlled), prolapsed bladder/vagina, and seizure disorder who p/w 1xday acute onset LLQ abdominal pain. She took ibuprofen for the pain which did not help. In the ED she reports pain 10/10 severity on arrival. She received levoquin/flagyl in the ED. She states that the pain has significantly improved since first arriving and is at a 5/10. She states that she is passing gas and had a bowel movement (solid, nonbloody or melenic) in the ED. Additionally she states that she has some urinary retention which she has had for many months. Denies overt fevers, chills, nausea, vomiting , diarrhea, chest pain or shortness of breath. ER course was notable for: (1) WBC 13.1 (2) HR 98 (3) K 3.1 Subsequent hospital course: Discharge Summary Reason For Visit: DIVERTICULILTIS Current Active Problems Diabetes mellitus type 2, controlled, without complications (Acute) Diverticulitis of colon with perforation (Acute) Hypertension (Acute) Other partial intestinal obstruction (Acute) Cystocele (Chronic) Diverticulitis (Chronic) Condition: Improved - Instructions Diet, Activity, Other Instructions: You were admitted to the hospital, because you had acute abdominal pain. You were found to have diverticulitis and a small perforation in your intestine. You were treated with antibiotics and bowel rest. Your diet has been slowly advanced and your pain has improved. Recommendations: -Follow a low carbohydrate and low sugar diet for your diabetes. While you are recovering from your diverticulitis, you must follow a low residue and low fiber diet for 1 week. Please see the educational packet provided for suggestions of low residue/low fiber foods. -You can do light daily exercises as tolerated for the next week. Medications: Continue taking your regular home medications with the following changes: -Stop taking HCTZ. -Take Amlodipine (Norvasc) 5mg daily -You are taking 2 antibiotics. You must continue taking these medication for 6 more days. 1)Take Flagyl 500mg 4 times per day, ideally 6 hours apart. Your first dose should be today at 6PM today, and your last dose will be 07/09 evening. 2)Take Levoquin 500mg daily. Your first dose will be tomorrow, Tuesday 07/04 and your last dose will be 07/09 -You can take Tylenol 650 mg up to four times per day as needed for your abdominal pain. Do not exceed more than 4000mg in one day. -You can take Benadryl 25 mg up to four times per today as needed for itching. -You can take Senna as needed as needed for constipation. Follow-ups: -Make an appointment to see your primary care physician in 1 week for post- hospitalization evaluation. -You can see GI doctor-Dr Gutierrez or your own GI doctor to discuss how to manage your diverticulitis and for a colonoscopy. -Make an appointment to see your Admissions Counselor to learn how to do self- catheterizations as soon as possible. Please return to the Emergency Department if you have worsening abdominal pain, nausea or vomiting, can not keep down any food, or have any new or concerning symptoms. Referrals: Wesley Frederick MD [Non Staff, Medical] - 1 Week Emilie Gutierrez MD [Staff Physician] - 2 Weeks Disposition: HOME - Home Medications Comprehensive Discharge Medication List: Ambulatory Orders Aspirin 81 mg PO DAILY 06/25/17 Ferrous Sulfate 325 mg PO BID 06/25/17 Levetiracetam [Keppra] 250 mg PO BID 06/25/17 Metoprolol Tartrate [Lopressor -] 50 mg PO BID 06/25/17 Acetaminophen [Tylenol .Regular Strength -] 650 mg PO Q6H PRN #0 tablet Amlodipine Besylate [Norvasc -] 5 mg PO DAILY #30 tablet 07/03/17 Diphenhydramine HCl [Benadryl Capsule -] 25 mg PO Q6H PRN #28 capsule 07/03/17 levoFLOXacin [Levaquin] 750 mg PO DAILY #6 tab 07/03/17 metroNIDAZOLE [Flagyl -] 500 mg PO Q6HPO #26 tablet 07/03/17
[2017-07-03] MEDS ORDERED: PT OWN MED DRAWER 7, Y5N ONE (10:12)
[2017-07-03] MEDS: amLODIPine BESYLATE 5 MG TABLET (FP) PO SCH (10:15)
[2017-07-03] MEDS: METOPROLOL TARTRATE 50 MG TABLET (FP) PO SCH (10:15)
[2017-07-03] MEDS: levoFLOXacin 750 MG TABLET PO SCH (10:15)
[2017-07-03] MEDS: levETIRAcetam 250 MG TABLET (FP) PO SCH (10:15)
[2017-07-03] MEDS: ENOXAPARIN NA (PORCINE) 40 MG/0.4 ML DISP.SYRIN SQ SCH (10:15)
[2017-07-03] MEDS: PANTOPRAZOLE 40 MG TABLET (FP) PO SCH (10:15)
--- NOTE | 2017-07-03 10:39 | PN ---
Progress Note, Physician History of Present Illness: Pt being treated for microperf diverticulitis with adjacent jejunal inflammation and mild SBO. Pain less every day, off IVF and on antibiotics, not using pain med. Jeff in place. Tolerating diet with no nausea or vomiting. No increase in pain or tenderness, though still somewhat tender. Ambulating. Pt was noted to have rash on back by primary team, itching responded to Benadryl. She also notes a bruise on her posterior upper right arm, not sure how it got there, not really tender. - Current Medication List Current Medications: Active Medications Acetaminophen (Tylenol -) 650 mg PO Q6H PRN PRN Reason: PAIN Last Admin: 07/01/17 07:29 Dose: 650 mg Amlodipine Besylate (Norvasc -) 5 mg PO DAILY FOR[facility]LY [facility], [facility] Last Admin: 07/03/17 10:15 Dose: 5 mg Diphenhydramine HCl (Benadryl -) 25 mg PO Q6H PRN PRN Reason: FOR ITCHING Last Admin: 07/03/17 00:09 Dose: 25 mg Enoxaparin Sodium (Lovenox -) 40 mg SQ DAILY [facility], [facility]1983 Last Admin: 07/03/17 10:15 Dose: 40 mg Insulin Aspart (Novolog Vial Sliding Scale -) 1 vial SQ BID FOR[facility]LY [facility], [facility]1983 PRN Reason: Protocol Last Admin: 07/02/17 21:23 Dose: Not Given Levetiracetam (Keppra -) 250 mg PO BID [facility], [facility] Last Admin: 07/03/17 10:15 Dose: 250 mg Levofloxacin (Levaquin) 750 mg PO DAILY [facility] Last Admin: 07/03/17 10:15 Dose: 750 mg Metoprolol Tartrate (Lopressor -) 50 mg PO BID [facility] Last Admin: 07/03/17 10:15 Dose: 50 mg Metronidazole (Flagyl -) 500 mg PO Q6HPO [facility], [facility] Last Admin: 07/03/17 06:30 Dose: 500 mg Pantoprazole Sodium (Protonix -) 40 mg PO BID [facility] Last Admin: 07/03/17 10:15 Dose: 40 mg - Objective Vital Signs: Vital Signs Temperature 98.5 F 07/03/17 07:24 Pulse Rate 97 H 07/03/17 07:24 Respiratory Rate 18 07/03/17 07:24 Blood Pressure 137/71 07/03/17 07:24 O2 Sat by Pulse Oximetry (%) 95 07/02/17 21:00 Constitutional: Yes: Well Nourished, No Distress, Calm Eyes: Yes: Conjunctiva Clear, EOM Intact HENT: Yes: Atraumatic, Normocephalic Gastrointestinal: Yes: Soft, Tenderness (LLQ focally, less LUQ, no R/G). No: Distention Genitourinary: Yes: Jeff Present. No: Hematuria Extremities: No: Cool, Cyanosis Integumentary: Yes: Bruising (posterior upper right arm, small ecchymotic ring with firm, nodular area beneath - minimally tender to deep palpation, appears to be few days old). No: Jaundice, Rash Neurological: Yes: Alert, Oriented Labs: CBC, BMP 07/03/17 07:15 07/03/17 07:15 Problem List - Problems (1) Diverticulitis of colon with perforation Assessment/Plan: presumed microperforation of diverticulosis with adjacent inflammation of SB and abdominal wall treating with antibiotics as diverticulitis with contained microperf tenderness focal in LLQ, controlled without meds, no pain unless palpated improving steadily on antibiotics (Levo/Flagyl), now tolerating diet po tylenol prn GI/DVT prophylaxis home aspirin was held in case of need for intervention - can resume on discharge to complete another 7 days of Levo 500mg daily, Flagyl 500mg qid to f/u with PMD Dr. Frederick at [facility] next week by Thursday if she has worsening of symptoms at home, pt plans to go to tertiary ER will also need GI followup - had last colonoscopy ~5 yrs ago with Radha Thompson doctor, likely [facility] she should f/u with them or other GI soon, to eval and schedule scope for after resolution of this episode Radiology to burn CD of her studies for her to take with her to other doctors No need for surgical followup with me at this time Code(s): K57.20 - DVTRCLI OF LG INT W PERFORATION AND ABSCESS W/O BLEEDING Qualifiers: Diverticulitis bleeding: without bleeding Qualified Code(s): K57.20 - Diverticulitis of large intestine with perforation and abscess without bleeding (2) Diabetes mellitus type 2, controlled, without complications Assessment/Plan: HbA1C <6 on diabetic diet, no meds, doing well Code(s): E11.9 - TYPE 2 DIABETES MELLITUS WITHOUT COMPLICATIONS Qualifiers: Diabetes mellitus intermodal dispatcher insulin use: without intermodal dispatcher use Qualified Code(s): E11.9 - Type 2 diabetes mellitus without complications (3) Hypertension Assessment/Plan: continue metoprolol has not been on hctz, doing well consider not resuming - pt to f/u with PMD Code(s): I10 - ESSENTIAL (PRIMARY) HYPERTENSION Qualifiers: Hypertension type: essential hypertension Qualified Code(s): I10 - Essential (primary) hypertension (4) Cystocele Assessment/Plan: recurrent, s/p multiple repairs with mesh and partial mesh removal/fascial graft pt manages conservatively at home but has urinary retention PLANS to learn self-catheterization as outpatient, will f/u with Dr. Steven Masters, FIELD STAFF rene/within week after discharge would keep Jeff to maintain bladder decompression on discharge until she has appt to learn self-cathing Code(s): N81.10 - CYSTOCELE, UNSPECIFIED Qualifiers: Cystocele location: midline Qualified Code(s): N81.11 - Cystocele, midline (5) Seizure Assessment/Plan: Keppra level was low continue home med, pt understands she will need to take bid as prescribed at home PMD can recheck Code(s): R56.9 - UNSPECIFIED CONVULSIONS
--- NOTE | 2017-07-03 11:35 | PN ---
Teaching Attending Note Name of Resident: Amber Julian ATTENDING PHYSICIAN STATEMENT I saw and evaluated the patient. I reviewed the resident's note and discussed the case with the resident. I agree with the resident's findings and plan as documented. SUBJECTIVE:pruritis improved. rash mostly resolved. had small BM yesterday. dneies CP, SOB, fever, chills, N/V/C/D OBJECTIVE: Last Vital Signs Temp Pulse Resp BP Pulse Ox 98.9 F 105 H 20 116/50 95 07/03/17 09:45 07/03/17 09:45 07/03/17 09:45 07/03/17 09:45 07/02/17 21:00 General NAD abdomen soft NT/ND normoactive BS Skin very faint macular rash across the back ASSESSMENT AND PLAN: 76 yo F with PMHx of HTN, NIDDM, seizure, bladder/vaginal prolapse, cystocele s /p multiple pelvic surgeries, recently placed on intermittent straight cath comes with Acute perforated diverticulitis 1. Sepsis due to Acute perforate descending colon diverticulitis- clinically improved. tolerating regular diet. cont levaquin/flagyl to complete 2 week course. will need GI f/u as outpatient. advised dietary changes. stool softeners so not straining. 2. Diffuse rash- high suspicion for drug reaction. mostly resolved. no anaphlactic signs. bendaryl prn. would continue abx. 3. Mild SBO- resolved. tolerating diet. monitor 4. cystocele- s/p multiple pelvic surgeries. currently with [facility]gers. would mantain rogers as pt does not want to learn here how to self-cath. to f/u with as outpatient 5. DM- diet controlled. no coverage required. cont diet control 6. HTN- improved. cont norvasc and metoprolol. 7. Seizure- no seizure like activity. cont keppra 8. Hypokalemia- resolved 9. DVT ppx- lovenox 10. d/c home.
[2017-07-03] MEDS: INSULIN SLIDING SCALE (NOVOLOG) 1 VIAL SQ SCH (11:57)
--- NOTE | 2017-07-03 12:32 | DS ---
Physical Exam: SUBJECTIVE: Patient seen and examined. Tolerated Regular, low residue diet yesterday. Had BM yesterday. Abdominal pain improved. No fever, chills, n/v/ diarrhea. OBJECTIVE: Vital Signs Period Temp Pulse Resp BP Sys/Armendariz Pulse Ox Last 24 Hr 98.5 F-99.8 F 91-110 18-20 108-137/50-71 95 OBJECTIVE: GENERAL: lying comfortably in bed, aaox3, nad HEENT: no lip or tongue swelling HEART: rrr, normal s1/s2 LUNGS: CTAB ABDOMEN: soft, non-distended, mild tenderness focally LLQ, +bowel sounds NEURO: CN II-XII grossly intact, but not formally tested EXTREMITIES: pulses 2+ DP b/l, motor strength 5/5, no peripheral edema CBC, BMP 07/03/17 07:15 07/03/17 07:15 Hepatic Panel Total Bilirubin 0.3 mg/dL (0.2-1.0) D 07/03/17 07:15 Direct Bilirubin 0.2 mg/dL (0.0-0.2) 06/27/17 06:45 AST 26 U/L (15-37) 07/03/17 07:15 ALT 23 U/L (12-78) 07/03/17 07:15 Alkaline Phosphatase 50 U/L (45-117) 07/03/17 07:15 Albumin 3.0 g/dl (3.4-5.0) L 07/03/17 07:15 Microbiology 06/25/17 22:50 Blood - Peripheral Venous Blood Culture - Final NO GROWTH AFTER 5 DAYS INCUBATION 06/25/17 22:50 Blood - Peripheral Venous Blood Culture - Final NO GROWTH AFTER 5 DAYS INCUBATION 06/25/17 16:16 Urine - Urine Clean Catch Urine Culture - Final Enterococcus Faecalis HOSPITAL COURSE: Date of Admission:06/25/17 Date of Discharge: 07/03/17 Pre-admission Course: 76yo woman with PMH of pre-diabetes (A1c 5.6% on 07/04/17), cystocele, hysterectomy, and seizure disorder who p/w 1x day acute onset LLQ abdominal pain. She took ibuprofen for the pain which did not help. In the ED she reports pain 10/10 severity on arrival. She received levoquin/flagyl in the ED. She states that the pain has significantly improved since first arriving and is at a 5/10. She states that she is passing gas and had a bowel movement (solid, nonbloody, or melenic) in the ED. Additionally she states that she has some urinary retention which she has had for many months. Denies subjective fevers, chills, nausea, vomiting, diarrhea, chest pain or shortness of breath. ER course was notable for: (1) WBC 13.1 (2) K 3.1 Subsequent Hospital Course: CT imaging revealed microperforation of diverticulosis adjacent to inflammed small bowel loop (see report below). Surgery was consulted. The patient was conservatively treated with bowel rest and serial abdominal exams. She received 7 out of 14 days of Levoquin and Flagyl. Her leukocytosis resolved and she was afebrile for >72hours prior to discharge. Over the course of her admission her abdominal pain decreased. She was passing flatus and had several BM prior to discharge. The patient's diet was slowly advanced, and she is now tolerating Regular, low residue foods with no nausea, vomiting, or abdominal pain. She was found to be hypertensive on her home metoprolol 50mg BID dose. Norvasc 5mg daily was added as a second agent with improved control of her BP. A Jeff catheter was maintained through out her admission due to chronic urinary retention. She will be discharged with the Jeff with close follow-up with her OBGYN (Dr. Mendoza), which the patient is in agreement with. Consults: Dr. Lang - General Surgery IMAGING: EXAM#: TYPE/EXAM: RESULT: [id number] CT/ABDOMEN PELVIS CT WITH CONTR Abdomen and pelvis CT (with contrast) Clinical information: left lower quadrant tenderness, ? hernia Multiplanar imaging was performed following the intravenous administration of nonionic contrast. As requested enteric contrast was not administered. Within the left lateral aspect of the abdomen centered at the abdominal pelvic junction note is made of soft tissue stranding along the lateral border of the descending colon in association with several punctate foci of extraluminal air/gas (transaxial images 77 - 87). Numerous diverticula are noted along the transverse and sigmoid colon although there is no obvious associated colonic wall edema. Within the left lower abdomen/upper pelvis there is apparent concentric wall edema involving a jejunal bowel loop extending over length of approximately 10 cm. This apparent segmental bowel wall edema abuts the previously described pericolonic edema/localized pneumoperitoneum. The more proximal jejunum demonstrates mild fluid-filled distention suggestive of resultant mild obstruction. The urinary bladder demonstrates mild overdistention which may be on a physiologic basis versus early retention. Correlate clinically. The liver, spleen, pancreas, gallbladder, adrenal glands and kidneys demonstrate no discrete abnormality. There is no aortic aneurysm. No definite lymphadenopathy is seen. The patient appears to be status post hysterectomy. The visualized osseous structures demonstrate no obvious CT evidence of acute pathology. No definite hernia is visualized. Mild focal discoid atelectasis/linear parenchymal scarring is noted within the lateral basal segment of the right lower lobe. Impression: Soft tissue stranding suggestive of edema is seen interposed between the descending colon and abdominal wall centered at the level of the abdominopelvic junction. Several associated punctate foci of extraluminal air/gas are noted suggestive of focal perforation. Note is also made of apparent concentric wall edema involving a jejunal bowel loop over length of approximately 10 cm adjacent to the previously described pericolonic pathology. There is associated mild proximal small bowel obstruction. EXAM#: TYPE/EXAM: RESULT: [id number] CT/ABDOMEN PELVIS CT WITH CONTR INDICATION: Follow-up perforated diverticulitis with small bowel obstruction. TECHNIQUE: CT scan of the abdomen and pelvis with oral contrast, following the intravenous administration of 85 mL of Omnipaque 350 contrast. COMPARISON: 06/25/2017 CT abdomen/pelvis. FINDINGS: Again redemonstrated is long segment small bowel wall thickening in the left mid to left lower abdomen, similar to the prior exam. Extraluminal gas locules are again noted adjacent to the sigmoid colon with wall thickening, compatible with the provided clinical history of perforated diverticulitis. Overall, these findings are similar to the prior exam. There is no evidence of small bowel obstruction. There is a small volume of free fluid in the pelvis. There is no drainable collection/abscess within the abdomen or pelvis. Normal liver size and contour. Moderate distention of the gallbladder is likely physiologic. Hyperattenuating fluid level in the gallbladder is likely vicarious excretion of recently administered contrast. There is no evidence of biliary ductal dilatation. The pancreas is unremarkable. Normal size spleen, with no focal lesions. No adrenal gland mass. Normal renal size with symmetric enhancement. There is no hydroureteronephrosis. Subcentimeter cortical hypodensities in the left kidney are too small to characterize, unchanged in size. Normal caliber abdominal aorta. Urinary bladder is collapsed about a Jeff catheter balloon. The uterus is surgically absent. Spondylotic changes are noted in the visualized spine. There is sacralization of L5. There is degenerative grade 1 anterolisthesis of L3 on L4 and L4-L5, unchanged. 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 Findings suggesting chronic bilateral sacroiliitis are unchanged. IMPRESSION: No significant interval change from 06/25/2017 CT abdomen/pelvis, as above. Persistent large and small bowel wall thickening, extraluminal gas locules and free fluid within the pelvis. No evidence of abscess. Please refer to the report above for additional findings. EXAM#: TYPE/EXAM: RESULT: [id number] RAD/ABDOMEN FLAT UPRIGHT History provided: Follow-up SBO Supine and erect views of the abdomen demonstrate no evidence of free intra- abdominal air. There is a nonspecific bowel gas pattern with contrast material noted within the colon from previous CT scan. Air is also noted within the rectum. There are mildly dilated loops of small bowel within the midabdomen that may represent an ileus. IMPRESSION: Air and contrast within the colon. Please see above discussion. Minutes to complete discharge: 40 Discharge Summary Reason For Visit: DIVERTICULILTIS Current Active Problems Diabetes mellitus type 2, controlled, without complications (Acute) Diverticulitis of colon with perforation (Acute) Hypertension (Acute) Other partial intestinal obstruction (Acute) Cystocele (Chronic) Diverticulitis (Chronic) Condition: Improved - Instructions Diet, Activity, Other Instructions: You were admitted to the hospital, because you had acute abdominal pain. You were found to have likely diverticulitis and a very small contained perforation of your intestine with inflammation of the small intestine near it. You were treated with antibiotics and bowel rest. Your diet has been slowly advanced and your pain has improved. Recommendations: -Follow a low carbohydrate and low sugar diet for your diabetes. While you are recovering from your diverticulitis, you must follow a low residue and low fiber diet for 1 week. Please see the educational packet provided for suggestions of low residue/low fiber foods. -You can do light daily exercises as tolerated for the next week. Medications: Continue taking your regular home medications with the following changes: -Stop taking HCTZ (hydrochlorothiazide). -Keep taking your daily aspirin. -Make sure to take your seizure medication, levatiracetam (Keppra) twice daily. Your level was low because you were only taking it once daily before the hospital. -Take Amlodipine (Norvasc) 5mg daily -You are taking 2 antibiotics. You must continue taking these medication for 6 more days. 1)Take Flagyl 500mg 4 times per day, ideally 6 hours apart (morning, lunch, dinner, bedtime). Your first dose should be today at 6PM today, or around dinnertime. 2)Take Levaquin 500mg daily. Your first dose will be tomorrow, Tuesday 07/04. -You can take Tylenol 1-2 pills up to four times per day as needed for your abdominal pain. Do not exceed more than 4000mg in one day. -You can take Benadryl 25 mg up to four times per today as needed for itching. -You can take Senna as needed for constipation. Follow-ups: -Make an appointment to see your primary care physician (Dr. Merino or Otoniel) in 1 week for post-hospitalization evaluation. If you are not better, they may want to take more pictures or get more labs. -You can see GI doctor-Dr Gutierrez or your own GI doctor to discuss how to manage your diverticulitis and for a colonoscopy 6-8 weeks after you are better from this episode. -Make an appointment to see your [employer] Specialist (Dr. Masters) to learn how to do self-catheterizations as soon as possible. You will have the bladder catheter in place until you see him. Please go to an Emergency Department if you have worsening abdominal pain, fevers, nausea or vomiting, can not keep down any food, or have any new or concerning symptoms. Referrals: Emilie Gutierrez MD [Staff Physician] - 2 Weeks Qing Merino MD [Non Staff, Medical] - 1 Week (or whomever pt's PMD is there at [facility]) Disposition: HOME - Home Medications Comprehensive Discharge Medication List: Ambulatory Orders Aspirin 81 mg PO DAILY 06/25/17 Ferrous Sulfate 325 mg PO BID 06/25/17 Levetiracetam [Keppra] 250 mg PO BID 06/25/17 Metoprolol Tartrate [Lopressor -] 50 mg PO BID 06/25/17 Acetaminophen [Tylenol .Regular Strength -] 650 mg PO Q6H PRN #0 tablet Amlodipine Besylate [Norvasc -] 5 mg PO DAILY #30 tablet 07/03/17 Diphenhydramine HCl [Benadryl Capsule -] 25 mg PO Q6H PRN #28 capsule 07/03/17 levoFLOXacin [Levaquin -] 500 mg PO DAILY #7 tablet 07/03/17 metroNIDAZOLE [Flagyl -] 500 mg PO Q6H #30 tablet 07/03/17 This patient is new to me today: No Emergency Visit: No Critical Care patient: No - Discharge Referral Referred to [facility] No
[2017-07-03 16:46] VITALS: BP 139/74; PULSE 101; TEMP 99.8
== END 2017-07-03 18:27 | disposition home or self-care (01) | DRG 872 ==
LOC: JER 12:27 → JERBED 22:28 → J5S 06-26 04:38
PROVIDERS: ADMIT Internal Medicine; ATTEND Internal Medicine
DX: A41.9 Sepsis, unspecified organism (principal); K57.20 Diverticulitis of large intestine with perforation and abscess without bleeding; K56.690 Other partial intestinal obstruction; N39.0 Urinary tract infection, site not specified; E11.9 Type 2 diabetes mellitus without complications; N81.10 Cystocele, unspecified; K58.9 Irritable bowel syndrome, unspecified; E87.6 Hypokalemia; R33.9 Retention of urine, unspecified; I10 Essential (primary) hypertension; R56.9 Unspecified convulsions; R42 Dizziness and giddiness; E78.5 Hyperlipidemia, unspecified; J44.9 Chronic obstructive pulmonary disease, unspecified; Z78.0 Asymptomatic menopausal state; M54.5 Low back pain; Z87.891 Personal history of nicotine dependence
CPT/HCPCS: 36415; 74019-TC-FY; 74177-TC; 80048; 80053; 80076; 81003; 81015; 82962; 83036; 83605; 83735; 84100; 85025; 85027; 85610; 86850; 86900; 86901; 87040; 87086; 87186; 93005; 93010; 97116-GP; 97161-GP; 99284-25; J0131; J7030

== ENCOUNTER 2021-02-21 17:46 | Emergency (ER) | payer OTHER ==
[2021-02-21 18:19] VITALS: BP 160/75; PULSE 89; TEMP 98.4; BMI 29.2
[2021-02-21] MEDS ORDERED: ENOXAPARIN NA (PORCINE) 80 MG/0.8 ML DISP.SYRIN SQ ONE (18:20)
[2021-02-21] MEDS ORDERED: ENOXAPARIN NA (PORCINE) 100 MG/1 ML DISP.SYRIN SQ ONE (18:47)
[2021-02-21 19:09] LABS: BASO % 3.7 % (0-2.0); EOS % 0.9 % (0-4.5); HEMATOCRIT 35.8 % (32.4-45.2); HEMOGLOBIN 11.6 GM/dl (10.7-15.3); LYMPH % 24.8 % (8-40); MCH 29.9 pg (25.7-33.7); MCHC 32.2 g/dl (32.0-36.0); MEAN CELL VOLUME 92.9 fl (80-96); MEAN PLT VOLUME 8.7 fl (7.5-11.1); MONO % 6.9 % (3.8-10.2); NEUT % 63.7 % (42.8-82.8); PLATELET COUNT 165 10^3/uL (134-434); RBC 3.86 M/mm3 (3.60-5.2); RDW 14.3 % (11.6-15.6); WHITE BLOOD COUNT 7.9 K/mm3 (4.0-10.8)
[2021-02-21 19:24] LABS: ALBUMIN 3.6 g/dl (3.4-5.0); BILIRUBIN,TOTAL 0.4 mg/dl (0.2-1); CALCIUM 8.6 mg/dl (8.5-10)
[2021-02-21 19:26] LABS: ACTIVATED PTT 29.8 SECONDS (25.2-36.5)
[2021-02-21 19:30] LABS: INR 1.16 (0.82-1.09); PROTHROMBIN TIME (PATIENT) 12.9 SEC (10.2-13.0)
== END 2021-02-21 20:08 | disposition home or self-care (01) ==
LOC: FER 17:46
DX: I82.432 Acute embolism and thrombosis of left popliteal vein (principal)
CPT/HCPCS: 36415; 80053; 85025; 85610; 85730; 93971-TC; 99284-25

== ENCOUNTER 2021-02-24 10:26 | Emergency (ER) | payer OTHER ==
[2021-02-24 10:57] VITALS: BMI 28.5
[2021-02-24] MEDS ORDERED: FAMOTIDINE 20 MG/50 ML IVPB 20 MG/50 ML MG IVPB ONE ×2 (11:10→11:29)
[2021-02-24 11:44] LABS: MEAN PLT VOLUME 8.5 fl (7.5-11.1)
[2021-02-24 11:48] LABS: BASO % 1.5 % (0-2.0); EOS % 0.3 % (0-4.5); HEMOGLOBIN 11.7 GM/dl (10.7-15.3); LYMPH % 24.1 % (8-40); MCH 30.3 pg (25.7-33.7); MCHC 32.4 g/dl (32.0-36.0); MEAN CELL VOLUME 93.5 fl (80-96); MONO % 6.6 % (3.8-10.2); NEUT % 67.5 % (42.8-82.8); PLATELET COUNT 200 10^3/uL (134-434); RBC 3.85 M/mm3 (3.60-5.2); RDW 14.4 % (11.6-15.6)
[2021-02-24 12:00] LABS: ANION GAP 13 MMOL/L (8-16); CALCIUM 8.7 mg/dl (8.5-10); CHLORIDE 106 mmol/L (98-107); CO2 26 mmol/L (21-32); GLUCOSE,RANDOM 117 mg/dl (74-106); SODIUM 145 mmol/L (136-145)
[2021-02-24 12:03] LABS: ALBUMIN 3.5 g/dl (3.4-5.0); ALK PHOS 62 U/L (45-117); BILIRUBIN,TOTAL 0.5 mg/dl (0.2-1); CREATININE 1.1 mg/dl (0.55-1.3); SGOT/AST 14 U/L (15-37); SGPT/ALT 10 U/L (13-61); TOT PROT 6.9 g/dl (6.4-8.2)
[2021-02-24 12:18] LABS: INR 2.05 (0.82-1.09); PROTHROMBIN TIME (PATIENT) 22.7 SEC (10.2-13.0)
[2021-02-24] MEDS ORDERED: POTASSIUM CHLORIDE ORAL LIQUID 20 MEQ/15 ML PO ONE (12:30)
[2021-02-24] MEDS ORDERED: POTASSIUM CHLORIDE ORAL LIQUID 20 MEQ/15 ML ONE (12:34)
[2021-02-24 13:11] LABS: LIPASE 111 U/L (73-393)
[2021-02-24 15:24] VITALS: TEMP 98.9
[2021-02-24] MEDS ORDERED: SODIUM CHLORIDE 1,000 ML IV SCH (17:00)
[2021-02-24] MEDS ORDERED: ACETAMINOPHEN 1000 MG/100 ML VIAL IVPB ONE (17:32)
[2021-02-24] MEDS ORDERED: ACETAMINOPHEN INJECTION 100 ML IVPB ONE (17:38)
[2021-02-24] MEDS ORDERED: LIDOCAINE HCL 2% JELLY (5 ML/TUBE) ONE (18:56)
[2021-02-24] MEDS ORDERED: MAGNESIUM SULF 50% (8.12 MEQ/2 ML-1 GM VIAL) IVPB ONE (19:13)
[2021-02-24] MEDS ORDERED: morphine CARPU-JECT 2 MG/1 ML DISP.SYRIN IVPUSH ONE ×2 (19:19→21:55)
[2021-02-24] MEDS ORDERED: MAGNESIUM 1GM/D5W - 2 GM/200 ML IVPB IVPB ONE (19:23)
[2021-02-24] MEDS ORDERED: morphine SULFATE 4 MG/ML VIAL ONE ×2 (19:23→22:01)
[2021-02-24 21:33] VITALS: PULSE 92
[2021-02-24] MEDS ORDERED: METOPROLOL TARTRATE 5 MG/5 ML VIAL IVPUSH ONE (23:16)
[2021-02-24] MEDS ORDERED: levETIRAcetam 500 MG/5 ML INJECTION VIAL IVPB ONE ×2 (23:16→23:21)
[2021-02-24] MEDS ORDERED: METOPROLOL TARTRATE 5 MG/5 ML VIAL ONE (23:21)
[2021-02-24 23:59] VITALS: BP 150/70
== END 2021-02-25 01:35 | disposition short-term general hospital (02) ==
LOC: FER 10:26
PROC: 3E03329 Introduction of Other Anti-infective into Peripheral Vein, Percutaneous Approach (ICD-10-PCS; principal; 2021-02-24)
PROC: 3E033NZ Introduction of Analgesics, Hypnotics, Sedatives into Peripheral Vein, Percutaneous Approach (ICD-10-PCS; 2021-02-24)
PROC: 3E033GC Introduction of Other Therapeutic Substance into Peripheral Vein, Percutaneous Approach (ICD-10-PCS; 2021-02-24)
PROC: 3E033GC Introduction of Other Therapeutic Substance into Peripheral Vein, Percutaneous Approach (ICD-10-PCS; 2021-02-24)
PROC: 3E033GC Introduction of Other Therapeutic Substance into Peripheral Vein, Percutaneous Approach (ICD-10-PCS; 2021-02-24)
PROC: 3E033GC Introduction of Other Therapeutic Substance into Peripheral Vein, Percutaneous Approach (ICD-10-PCS; 2021-02-24)
PROC: 3E033GC Introduction of Other Therapeutic Substance into Peripheral Vein, Percutaneous Approach (ICD-10-PCS; 2021-02-24)
DX: K56.609 Unspecified intestinal obstruction, unspecified as to partial versus complete obstruction (principal); E87.6 Hypokalemia; I82.402 Acute embolism and thrombosis of unspecified deep veins of left lower extremity; I26.99 Other pulmonary embolism without acute cor pulmonale
CPT/HCPCS: 36415; 71045-TC-FY; 71260-TC; 74177-TC; 80053; 83690; 84484; 85025; 85610; 93005; 99285-25; C9803; J0131; U0003; U0005

== ENCOUNTER 2021-03-04 10:51 | Emergency (ER) | payer OTHER ==
[2021-03-04 11:27] VITALS: BP 159/84; PULSE 83; TEMP 99.4; BMI 29.4
[2021-03-04 12:55] LABS: EPITHELIAL CELLS MODERATE /hpf
== END 2021-03-04 13:07 | disposition home or self-care (01) ==
LOC: FER 10:51
DX: R33.9 Retention of urine, unspecified (principal)
CPT/HCPCS: 81003; 81015; 87086; 99283-25

== ENCOUNTER 2022-01-19 17:18 | Inpatient (IN) | payer OTHER ==
[2022-01-19] MEDS ORDERED: ACETAMINOPHEN 1000 MG/100 ML BAG IVPB ONE (18:15)
[2022-01-19] MEDS ORDERED: morphine CARPU-JECT 8 MG/1 ML DISP.SYRIN IVPUSH ONE (18:15)
[2022-01-19] MEDS ORDERED: ACETAMINOPHEN INJECTION 100 ML IVPB ONE (18:16)
[2022-01-19] MEDS ORDERED: morphine SULFATE 4 MG/ML VIAL ONE ×2 (18:16→20:36)
[2022-01-19] MEDS ORDERED: SODIUM CHLORIDE 0.9% 1000 ML INFUS.BAG IV ONE (18:17)
[2022-01-19 18:34] LABS: EPITHELIAL CELLS FEW /hpf
[2022-01-19 18:39] LABS: ALBUMIN 3.6 g/dl (3.4-5.0); BILIRUBIN,TOTAL 1.2 mg/dl (0.2-1); CALCIUM 9.2 mg/dl (8.5-10); CREATININE 0.9 mg/dl (0.55-1.3); TOT PROT 7.1 g/dl (6.4-8.2)
[2022-01-19 18:40] LABS: HEMATOCRIT 39.7 % (32.4-45.2); HEMOGLOBIN 13.4 G/dL (10.7-15.3); MCH 32.3 pg (25.7-33.7); MCHC 33.8 g/dl (32.0-36.0); MEAN CELL VOLUME 95.4 fl (80-96); MEAN PLT VOLUME 9.5 fl (7.5-11.1); PLATELET COUNT 209.7 10^3/uL (134-434); RBC 4.16 10^6/uL (3.60-5.2); RDW 16.7 % (11.6-15.6); WHITE BLOOD COUNT 8.7 10^3/uL (4.0-10.8)
[2022-01-19 18:44] LABS: PLATELET ESTIMATE ADEQUATE
[2022-01-19] MEDS ORDERED: VANCOMYCIN 1 GM in D5W (PRE-DOCKED) 1,000 MG/250 ML IVPB ONE (18:51)
[2022-01-19] MEDS ORDERED: PIPERACILLIN/TAZOB 3.375 GM 3.375 GM in DEXTROSE 5%-WATER - 50 ML IVPB ONE (18:52)
[2022-01-19] MEDS ORDERED: PIPERACILLIN/TAZOBACTAM 4.5 GM VIAL IVPB ONE (19:02)
[2022-01-19] MEDS ORDERED: VANCOMYCIN 1,000 MG VIAL (RESTRICTED TO ID ONLY) ONE (19:03)
[2022-01-19] MEDS ORDERED: PIPERACILLIN/TAZOBACTAM 3.375 GM VIAL IVPB ONE (19:07)
[2022-01-19] MEDS ORDERED: morphine CARPU-JECT 4 MG/1 ML DISP.SYRIN IVPUSH ONE (20:34)
[2022-01-19] MEDS: ACETAMINOPHEN 1000 MG/100 ML BAG IVPB PRN (23:06)
[2022-01-19] MEDS: DEXTROSE 5%-0.45% SALINE 1,000 ML IV SCH (23:07)
[2022-01-20] MEDS: levETIRAcetam 500 MG/5 ML INJECTION VIAL IVPB SCH ×3 (00:06→21:07)
[2022-01-20] MEDS ORDERED: PIPERACILLIN/TAZOB 3.375 GM 3.375 GM in DEXTROSE 5%-WATER - 50 ML IVPB SCH (03:30)
[2022-01-20] MEDS: ACETAMINOPHEN 1000 MG/100 ML BAG IVPB PRN ×3 (06:05→16:53)
[2022-01-20] MEDS: PIPERACILLIN/TAZOB 3.375 GM 3.375 GM in DEXTROSE 5%-WATER - 50 ML IVPB SCH ×3 (06:24→17:34)
[2022-01-20 16:21] VITALS: BMI 22.6
[2022-01-20] MEDS ORDERED: VANCOMYCIN 750 MG in DEXTROSE 5%-WATER - 150 ML IVPB SCH (20:00)
[2022-01-20] MEDS ORDERED: VANCOMYCIN/WATER FOR INJ (PEG) 750 MG/150 ML BAG IVPB SCH (20:00)
[2022-01-20] MEDS ORDERED: ACETAMINOPHEN 1000 MG/100 ML BAG IVPB PRN (23:33)
[2022-01-21] MEDS: PIPERACILLIN/TAZOB 3.375 GM 3.375 GM in DEXTROSE 5%-WATER - 50 ML IVPB SCH ×3 (01:22→18:21)
[2022-01-21] MEDS: DEXTROSE 5%-0.45% SALINE 1,000 ML IV SCH (01:23)
[2022-01-21 09:10] LABS: ALBUMIN 2.5 g/dl (3.4-5.0); BILIRUBIN,TOTAL 0.7 mg/dl (0.2-1); CALCIUM 7.9 mg/dl (8.5-10); CREATININE 0.9 mg/dl (0.55-1.3)
[2022-01-21] MEDS: levETIRAcetam 500 MG/5 ML INJECTION VIAL IVPB SCH ×2 (09:34→21:35)
[2022-01-21] MEDS: KCL 10 MEQ IVPB 10 MEQ/100 ML INFUS.BAG IVPB SCH ×5 (10:11→18:21)
[2022-01-21] MEDS ORDERED: POTASSIUM CHLORIDE ORAL LIQUID 20 MEQ/15 ML PO ONE (11:00)
[2022-01-21 11:06] LABS: HEMATOCRIT 32.8 % (32.4-45.2); HEMOGLOBIN 10.4 GM/dL (10.7-15.3); MCHC 31.7 g/dl (32.0-36.0); MEAN CELL VOLUME 94.5 fl (80-96); MEAN PLT VOLUME 9.3 fl (7.5-11.1); PLATELET COUNT 183 10^3/uL (134-434); RBC 3.47 M/mm3 (3.60-5.2); RDW 15.3 % (11.6-15.6); WHITE BLOOD COUNT 5.2 K/mm3 (4.0-10.0)
[2022-01-22] MEDS: DEXTROSE 5%-0.45% SALINE 1,000 ML IV SCH (00:47)
[2022-01-22] MEDS: PIPERACILLIN/TAZOB 3.375 GM 3.375 GM in DEXTROSE 5%-WATER - 50 ML IVPB SCH ×2 (02:24→09:21)
[2022-01-22] MEDS ORDERED: PHENAZOPYRIDINE HCL 100 MG TABLET (FP) PO ONE (08:45)
[2022-01-22] MEDS: levETIRAcetam 250 MG TABLET PO SCH ×2 (09:22→21:37)
[2022-01-22] MEDS: METOPROLOL TARTRATE 50 MG TABLET (FP) PO SCH ×2 (09:22→21:37)
[2022-01-22] MEDS: ENOXAPARIN NA (PORCINE) 40 MG/0.4 ML DISP.SYRIN SQ SCH (09:22)
[2022-01-22] MEDS: GABAPENTIN 300 MG CAPSULE PO SCH (09:22)
[2022-01-22] MEDS ORDERED: APIXABAN 5 MG TABLET PO SCH (10:00)
[2022-01-22] MEDS: CEFTRIAXONE 1 GM in DEXTROSE 5%-WATER - 50 ML IVPB SCH (15:59)
[2022-01-23] MEDS: levETIRAcetam 250 MG TABLET PO SCH ×2 (09:38→22:06)
[2022-01-23] MEDS: CEFTRIAXONE 1 GM in DEXTROSE 5%-WATER - 50 ML IVPB SCH (09:38)
[2022-01-23] MEDS: ENOXAPARIN NA (PORCINE) 40 MG/0.4 ML DISP.SYRIN SQ SCH (09:38)
[2022-01-23] MEDS: METOPROLOL TARTRATE 50 MG TABLET (FP) PO SCH ×2 (09:38→22:06)
[2022-01-23] MEDS: GABAPENTIN 300 MG CAPSULE PO SCH (09:38)
[2022-01-23 23:04] VITALS: RESP 18
[2022-01-24] MEDS: levETIRAcetam 250 MG TABLET PO SCH (10:47)
[2022-01-24] MEDS: ENOXAPARIN NA (PORCINE) 40 MG/0.4 ML DISP.SYRIN SQ SCH (10:47)
[2022-01-24] MEDS: CEFTRIAXONE 1 GM in DEXTROSE 5%-WATER - 50 ML IVPB SCH (10:47)
[2022-01-24] MEDS: GABAPENTIN 300 MG CAPSULE PO SCH (10:47)
[2022-01-24] MEDS: METOPROLOL TARTRATE 50 MG TABLET (FP) PO SCH (10:47)
[2022-01-24] MEDS ORDERED: ACETAMINOPHEN 500 MG TABLET (FP) PO PRN ×2 (14:00→14:22)
[2022-01-24 15:31] VITALS: BP 132/60; PULSE 83; TEMP 98.2
== END 2022-01-24 18:20 | disposition home or self-care (01) | DRG 699 ==
LOC: FER 17:18 → FM/S 21:15 → J6S 01-22 18:15
PROVIDERS: ADMIT Internal Medicine; ATTEND Internal Medicine
DX: T83.518A Infection and inflammatory reaction due to other urinary catheter, initial encounter (principal); K56.609 Unspecified intestinal obstruction, unspecified as to partial versus complete obstruction; N39.0 Urinary tract infection, site not specified; I10 Essential (primary) hypertension; E78.5 Hyperlipidemia, unspecified; G40.909 Epilepsy, unspecified, not intractable, without status epilepticus; R33.8 Other retention of urine; N89.8 Other specified noninflammatory disorders of vagina; E11.9 Type 2 diabetes mellitus without complications; N32.81 Overactive bladder; J44.9 Chronic obstructive pulmonary disease, unspecified; E87.6 Hypokalemia; Y84.6 Urinary catheterization as the cause of abnormal reaction of the patient, or of later complication, without mention of misadventure at the time of the procedure
CPT/HCPCS: 36415; 74018-TC-FY; 74177-TC; 76830-TC; 76856-TC; 80053; 80177; 81003; 81015; 82962; 84132; 85025; 85027; 87086; 87186; 93005; 97116-GP; 97162-GP; C9803-CS; Q9967; U0003; U0005

== ENCOUNTER 2022-01-28 19:16 | Emergency (ER) | payer OTHER ==
[2022-01-28 19:26] VITALS: BP 133/73; PULSE 82; RESP 16; TEMP 98.7; BMI 21.9
[2022-01-28] MEDS ORDERED: ACETAMINOPHEN 325 MG TABLET (FP) ONE (20:47)
[2022-01-28] MEDS ORDERED: ACETAMINOPHEN 325 MG TABLET (FP) PO ONE (20:47)
[2022-01-28 21:24] LABS: EPITHELIAL CELLS FEW /hpf
== END 2022-01-28 21:06 | disposition home or self-care (01) ==
LOC: FER 19:16
DX: R33.9 Retention of urine, unspecified (principal)
CPT/HCPCS: 81003; 81015; 87077; 87086; 99283-25

== ENCOUNTER 2022-03-09 21:00 | Emergency (ER) | payer OTHER ==
[2022-03-09 21:30] VITALS: BP 154/88; PULSE 106; RESP 20; TEMP 97.9; BMI 21.9
[2022-03-09] MEDS ORDERED: METOCLOPRAMIDE HCL 10 MG TABLET (FP) PO ONE ×2 (23:23→23:37)
[2022-03-09] MEDS ORDERED: PHENAZOPYRIDINE HCL 100 MG TABLET (FP) PO ONE (23:23)
[2022-03-09 23:27] LABS: EPITHELIAL CELLS RARE /hpf
[2022-03-09] MEDS ORDERED: NITROFURANTOIN MACROCRYSTAL 50 MG CAPSULE (FP) PO SCH (23:30)
[2022-03-09] MEDS ORDERED: NITROFURANTOIN MACROCRYSTAL 50 MG CAPSULE (FP) ONE (23:37)
[2022-03-09] MEDS ORDERED: PHENAZOPYRIDINE HCL 100 MG TABLET (FP) ONE (23:37)
== END 2022-03-09 23:56 | disposition home or self-care (01) ==
LOC: FER 21:00
DX: N39.0 Urinary tract infection, site not specified (principal); K21.9 Gastro-esophageal reflux disease without esophagitis
CPT/HCPCS: 81003; 81015; 87086; 99284-25

== ENCOUNTER 2022-03-13 09:31 | Inpatient (IN) | payer OTHER ==
[2022-03-13] MEDS ORDERED: ACETAMINOPHEN 500 MG TABLET (FP) PO ONE (12:51)
[2022-03-13] MEDS ORDERED: ACETAMINOPHEN 325 MG TABLET (FP) ONE (13:49)
[2022-03-13] MEDS ORDERED: CEFTRIAXONE 1,000 MG in DEXTROSE 5%-WATER - 50 ML IVPB ONE (15:28)
[2022-03-13 15:38] LABS: BASO % 0.2 % (0-2.0); EOS % 0.1 % (0-4.5); HEMATOCRIT 31.9 % (32.4-45.2); HEMOGLOBIN 10.3 GM/dL (10.7-15.3); LYMPH % 21.5 % (8-40); MCH 30.3 pg (25.7-33.7); MCHC 32.3 g/dl (32.0-36.0); MEAN CELL VOLUME 93.9 fl (80-96); MEAN PLT VOLUME 8.1 fl (7.5-11.1); MONO % 5.9 % (3.8-10.2); NEUT % 72.3 % (42.8-82.8); PLATELET COUNT 201 10^3/uL (134-434); RDW 14.2 % (11.6-15.6); WHITE BLOOD COUNT 7.9 K/mm3 (4.0-10.0)
[2022-03-13 15:39] LABS: INR 1.48 (0.83-1.09); PROTHROMBIN TIME (PATIENT) 17.1 SEC (9.7-13.0)
[2022-03-13 15:42] LABS: ACTIVATED PTT 35.8 SECONDS (25.2-36.5)
[2022-03-13 16:00] LABS: BILIRUBIN,TOTAL 0.2 mg/dL (0.2-1); BLOOD UREA NITROGEN 15.4 mg/dL (7-18); CALCIUM 8.2 mg/dL (8.5-10.1); CREATININE 0.8 mg/dL (0.55-1.3); TOT PROT 6.2 g/dl (6.4-8.2)
[2022-03-13] MEDS ORDERED: POTASSIUM CHLORIDE TABS 20 MEQ TABLET.ER (FP) PO ONE ×2 (16:06→17:08)
[2022-03-13 16:29] LABS: URINE APPEARANCE CLOUDY; URINE BILIRUBIN 1+ (NEGATIVE); URINE COLOR DK YELLOW; URINE GLUCOSE (UA) NEGATIVE (NEGATIVE); URINE KETONE NEGATIVE (NEGATIVE); URINE LEUK ESTERASE 1+ (NEGATIVE); URINE NITRITE POSITIVE (NEGATIVE); URINE PROTEIN 4+ (NEGATIVE)
[2022-03-13] MEDS ORDERED: CEFTRIAXONE 1 GM/50 ML BAG ONE (17:04)
[2022-03-13] MEDS ORDERED: SODIUM CHLORIDE 0.9% 1000 ML INFUS.BAG IV ONE (19:42)
[2022-03-13] MEDS ORDERED: morphine CARPU-JECT 2 MG/1 ML DISP.SYRIN IVPUSH ONE (19:42)
[2022-03-13 21:14] LABS: BASO % 0.1 % (0-2.0); EOS % 0.1 % (0-4.5); HEMATOCRIT 29.8 % (32.4-45.2); HEMOGLOBIN 9.6 GM/dL (10.7-15.3); LYMPH % 25.5 % (8-40); MCH 30.4 pg (25.7-33.7); MCHC 32.3 g/dl (32.0-36.0); MEAN CELL VOLUME 94.1 fl (80-96); MEAN PLT VOLUME 8.9 fl (7.5-11.1); MONO % 5.4 % (3.8-10.2); NEUT % 68.9 % (42.8-82.8); PLATELET COUNT 181 10^3/uL (134-434); RBC 3.17 M/mm3 (3.60-5.2); WHITE BLOOD COUNT 7.8 K/mm3 (4.0-10.0)
[2022-03-13] MEDS ORDERED: morphine CARPU-JECT 4 MG/1 ML DISP.SYRIN IVPUSH ONE (21:57)
[2022-03-13] MEDS ORDERED: morphine SULFATE 4 MG/ML VIAL ONE (22:04)
[2022-03-13 22:35] LABS: EPI CELLS 0-5 /HPF; URINE BACTERIA FEW /hpf (NEGATIVE); URINE RBC >100 /hpf (0-4); URINE WBC 0-5 (NEGATIVE)
[2022-03-13] MEDS ORDERED: ACETAMINOPHEN 1000 MG/100 ML BAG IVPB PRN (22:49)
[2022-03-14 00:44] LABS: HEMATOCRIT 24.5 % (32.4-45.2); MCH 30.6 pg (25.7-33.7); MCHC 32.6 g/dl (32.0-36.0); MEAN PLT VOLUME 7.8 fl (7.5-11.1); PLATELET COUNT 168 10^3/uL (134-434); RDW 13.7 % (11.6-15.6); WHITE BLOOD COUNT 7.2 K/mm3 (4.0-10.0)
[2022-03-14 02:10] VITALS: BMI 20.7
[2022-03-14] MEDS: levETIRAcetam 250 MG TABLET PO SCH ×3 (03:22→21:42)
[2022-03-14 09:44] LABS: BASO % 0.1 % (0-2.0); HEMATOCRIT 33.1 % (32.4-45.2); LYMPH % 14.4 % (8-40); MCH 29.7 pg (25.7-33.7); MCHC 33.1 g/dl (32.0-36.0); MEAN CELL VOLUME 89.6 fl (80-96); MEAN PLT VOLUME 8.6 fl (7.5-11.1); MONO % 4.4 % (3.8-10.2); NEUT % 81.1 % (42.8-82.8); PLATELET COUNT 147 10^3/uL (134-434); RBC 3.69 M/mm3 (3.60-5.2); RDW 15.6 % (11.6-15.6); WHITE BLOOD COUNT 8.8 K/mm3 (4.0-10.0)
[2022-03-14] MEDS: CEFTRIAXONE 1 GM in DEXTROSE 5%-WATER - 50 ML IVPB SCH (10:14)
[2022-03-14] MEDS: amLODIPine BESYLATE 5 MG TABLET (FP) PO SCH (10:15)
[2022-03-14] MEDS: OSELTAMIVIR PHOSPHATE 30 MG CAPSULE PO SCH ×2 (10:15→21:42)
[2022-03-14] MEDS: PANTOPRAZOLE 20 MG TABLET PO SCH (10:16)
[2022-03-14] MEDS: METOPROLOL TARTRATE 50 MG TABLET (FP) PO SCH ×2 (10:16→21:42)
[2022-03-14] MEDS: SODIUM CHLORIDE 1,000 ML IV SCH ×2 (10:19→21:42)
[2022-03-14] MEDS: TAMSULOSIN HCL 0.4 MG CAP PO SCH (10:19)
[2022-03-14 10:30] LABS: CHLORIDE 105 mmol/L (98-107); SODIUM 145 mmol/L (136-145)
[2022-03-14 10:46] LABS: ALBUMIN 2.8 g/dl (3.4-5.0); BLOOD UREA NITROGEN 11.8 mg/dL (7-18); CALCIUM 7.9 mg/dL (8.5-10.1); CO2 30 mmol/L (21-32); GLUCOSE,RANDOM 105 mg/dL (74-106); MAGNESIUM 1.4 mg/dL (1.8-2.4)
[2022-03-14 10:48] LABS: CREATININE 0.6 mg/dL (0.55-1.3)
[2022-03-14 10:49] LABS: PHOSPHOROUS 2.9 mg/dL (2.5-4.9); SGOT/AST 18 U/L (15-37); SGPT/ALT 15 U/L (13-61)
[2022-03-14 10:50] LABS: BILIRUBIN,TOTAL 1.4 mg/dL (0.2-1); TOT PROT 5.6 g/dl (6.4-8.2)
[2022-03-14 10:51] LABS: ALK PHOS 48 U/L (45-117)
[2022-03-14 10:52] LABS: ANION GAP 10 MMOL/L (8-16)
[2022-03-14] MEDS: POTASSIUM CHLORIDE TABS 20 MEQ TABLET.ER (FP) PO SCH ×3 (14:23→21:42)
[2022-03-14 19:33] LABS: HEMATOCRIT 30.2 % (32.4-45.2); HEMOGLOBIN 10.1 GM/dL (10.7-15.3); MCH 29.8 pg (25.7-33.7); MCHC 33.6 g/dl (32.0-36.0); MEAN CELL VOLUME 88.7 fl (80-96); MEAN PLT VOLUME 8.8 fl (7.5-11.1); PLATELET COUNT 150 10^3/uL (134-434); WHITE BLOOD COUNT 7.1 K/mm3 (4.0-10.0)
[2022-03-14] MEDS ORDERED: MIRTAZAPINE 15 MG TABLET (FP) PO SCH (22:00)
[2022-03-14] MEDS ORDERED: ATORVASTATIN CA 10 MG TABLET (FP) PO SCH (22:00)
[2022-03-15 09:34] LABS: BASO % 0.3 % (0-2.0); EOS % 0.7 % (0-4.5); HEMATOCRIT 26.8 % (32.4-45.2); HEMOGLOBIN 8.8 GM/dL (10.7-15.3); LYMPH % 40.6 % (8-40); MCH 29.6 pg (25.7-33.7); MEAN CELL VOLUME 89.6 fl (80-96); MEAN PLT VOLUME 8.4 fl (7.5-11.1); MONO % 5.4 % (3.8-10.2); PLATELET COUNT 145 10^3/uL (134-434); RBC 2.99 M/mm3 (3.60-5.2); WHITE BLOOD COUNT 5.9 K/mm3 (4.0-10.0)
[2022-03-15 09:56] LABS: ALBUMIN 2.2 g/dl (3.4-5.0); BLOOD UREA NITROGEN 8.6 mg/dL (7-18); CALCIUM 8.1 mg/dL (8.5-10.1); MAGNESIUM 1.6 mg/dL (1.8-2.4)
[2022-03-15 09:59] LABS: CREATININE 0.7 mg/dL (0.55-1.3); PHOSPHOROUS 2.3 mg/dL (2.5-4.9)
[2022-03-15 10:01] LABS: BILIRUBIN,TOTAL 1.1 mg/dL (0.2-1); TOT PROT 4.6 g/dl (6.4-8.2)
[2022-03-15] MEDS: CEFTRIAXONE 1 GM in DEXTROSE 5%-WATER - 50 ML IVPB SCH (10:33)
[2022-03-15] MEDS: TAMSULOSIN HCL 0.4 MG CAP PO SCH (10:35)
[2022-03-15] MEDS: levETIRAcetam 250 MG TABLET PO SCH ×2 (10:35→22:43)
[2022-03-15] MEDS: METOPROLOL TARTRATE 50 MG TABLET (FP) PO SCH ×2 (10:35→22:43)
[2022-03-15] MEDS: PANTOPRAZOLE 20 MG TABLET PO SCH (10:36)
[2022-03-15] MEDS: amLODIPine BESYLATE 5 MG TABLET (FP) PO SCH (10:36)
[2022-03-15] MEDS: OSELTAMIVIR PHOSPHATE 30 MG CAPSULE PO SCH ×2 (10:39→22:43)
[2022-03-15] MEDS ORDERED: ACETAMINOPHEN INJECTION 200 ML IVPB ONE (13:13)
[2022-03-15] MEDS ORDERED: FENTANYL CITRATE/PF 50 MCG/ML VIAL ONE (13:54)
[2022-03-15] MEDS: PATIENT'S OWN MEDICATION (NON-FORMULARY) (Mirabegron [Myrbetriq] 25 MG Tab.Er.24h) PO SCH ×2 (17:49→19:19)
[2022-03-15] MEDS ORDERED: ACETAMINOPHEN 1000 MG/100 ML BAG IVPB ONE ×2 (20:33)
[2022-03-15] MEDS: MIRTAZAPINE 15 MG TABLET (FP) PO SCH (22:43)
[2022-03-15] MEDS: ATORVASTATIN CA 10 MG TABLET (FP) PO SCH (22:43)
[2022-03-16] MEDS ORDERED: PATIENT'S OWN MEDICATION (NON-FORMULARY) (Mirabegron [Myrbetriq] 25 MG) PO SCH (10:00)
[2022-03-16] MEDS: amLODIPine BESYLATE 10 MG TABLET (FP) PO SCH (11:10)
[2022-03-16] MEDS: PANTOPRAZOLE 20 MG TABLET PO SCH (11:10)
[2022-03-16] MEDS: TAMSULOSIN HCL 0.4 MG CAP PO SCH (11:10)
[2022-03-16] MEDS: METOPROLOL TARTRATE 50 MG TABLET (FP) PO SCH ×2 (11:11→21:59)
[2022-03-16] MEDS: levETIRAcetam 250 MG TABLET PO SCH ×2 (11:11→21:59)
[2022-03-16] MEDS: CEFTRIAXONE 1 GM in DEXTROSE 5%-WATER - 50 ML IVPB SCH (11:11)
[2022-03-16] MEDS: OSELTAMIVIR PHOSPHATE 30 MG CAPSULE PO SCH ×2 (11:11→21:59)
[2022-03-16] MEDS ORDERED: MAGNESIUM SULF 50% (8.12 MEQ/2 ML-1 GM VIAL) IVPB ONE (17:38)
[2022-03-16] MEDS: SENNOSIDES 8.6MG TABLET (FP) PO SCH (21:59)
[2022-03-16] MEDS: MIRTAZAPINE 15 MG TABLET (FP) PO SCH (21:59)
[2022-03-16] MEDS: ATORVASTATIN CA 10 MG TABLET (FP) PO SCH (22:00)
[2022-03-17 10:22] LABS: HEMATOCRIT 26.7 % (32.4-45.2); HEMOGLOBIN 8.8 GM/dL (10.7-15.3); MCH 30.1 pg (25.7-33.7); MCHC 32.8 g/dl (32.0-36.0); MEAN CELL VOLUME 91.7 fl (80-96); MEAN PLT VOLUME 8.2 fl (7.5-11.1); PLATELET COUNT 193 10^3/uL (134-434); RBC 2.91 M/mm3 (3.60-5.2); RDW 14.8 % (11.6-15.6); WHITE BLOOD COUNT 6.4 K/mm3 (4.0-10.0)
[2022-03-17] MEDS: levETIRAcetam 250 MG TABLET PO SCH ×2 (10:25→22:12)
[2022-03-17] MEDS: TAMSULOSIN HCL 0.4 MG CAP PO SCH (10:26)
[2022-03-17] MEDS: PANTOPRAZOLE 20 MG TABLET PO SCH (10:26)
[2022-03-17] MEDS: amLODIPine BESYLATE 10 MG TABLET (FP) PO SCH (10:26)
[2022-03-17] MEDS: CEFTRIAXONE 1 GM in DEXTROSE 5%-WATER - 50 ML IVPB SCH (10:26)
[2022-03-17] MEDS: METOPROLOL TARTRATE 50 MG TABLET (FP) PO SCH ×2 (10:26→22:12)
[2022-03-17] MEDS: OSELTAMIVIR PHOSPHATE 30 MG CAPSULE PO SCH ×2 (10:27→22:16)
[2022-03-17 11:39] LABS: BLOOD UREA NITROGEN 7.4 mg/dL (7-18)
[2022-03-17 11:40] LABS: CALCIUM 8.1 mg/dL (8.5-10.1)
[2022-03-17 11:41] LABS: MAGNESIUM 1.6 mg/dL (1.8-2.4)
[2022-03-17 11:42] LABS: CREATININE 0.8 mg/dL (0.55-1.3); PHOSPHOROUS 3.3 mg/dL (2.5-4.9)
[2022-03-17] MEDS ORDERED: MAGNESIUM OXIDE 400 MG TABLET (FP) PO ONE (12:13)
[2022-03-17] MEDS: ACETAMINOPHEN 325 MG TABLET (FP) PO PRN (13:07)
[2022-03-17] MEDS ORDERED: PHENAZOPYRIDINE HCL 100 MG TABLET (FP) PO ONE (16:10)
[2022-03-17] MEDS: ATORVASTATIN CA 10 MG TABLET (FP) PO SCH (22:12)
[2022-03-17] MEDS: MIRTAZAPINE 15 MG TABLET (FP) PO SCH (22:12)
[2022-03-17] MEDS: SENNOSIDES 8.6MG TABLET (FP) PO SCH (22:16)
[2022-03-18] MEDS: PANTOPRAZOLE 20 MG TABLET PO SCH (09:37)
[2022-03-18] MEDS: levETIRAcetam 250 MG TABLET PO SCH ×2 (09:37→21:27)
[2022-03-18] MEDS: amLODIPine BESYLATE 10 MG TABLET (FP) PO SCH (09:37)
[2022-03-18] MEDS: TAMSULOSIN HCL 0.4 MG CAP PO SCH (09:37)
[2022-03-18] MEDS: METOPROLOL TARTRATE 50 MG TABLET (FP) PO SCH ×2 (09:37→21:27)
[2022-03-18] MEDS: OSELTAMIVIR PHOSPHATE 30 MG CAPSULE PO SCH (09:37)
[2022-03-18] MEDS: CEFTRIAXONE 1 GM in DEXTROSE 5%-WATER - 50 ML IVPB SCH (09:38)
[2022-03-18 10:39] LABS: BASO % 0.5 % (0-2.0); EOS % 1.8 % (0-4.5); HEMOGLOBIN 8.2 GM/dL (10.7-15.3); MCH 30.2 pg (25.7-33.7); MCHC 32.9 g/dl (32.0-36.0); MEAN CELL VOLUME 91.8 fl (80-96); MEAN PLT VOLUME 8.2 fl (7.5-11.1); MONO % 6.8 % (3.8-10.2); NEUT % 50.9 % (42.8-82.8); PLATELET COUNT 205 10^3/uL (134-434); RBC 2.73 M/mm3 (3.60-5.2); RDW 14.7 % (11.6-15.6); WHITE BLOOD COUNT 5.2 K/mm3 (4.0-10.0)
[2022-03-18 11:25] LABS: ALBUMIN 2.2 g/dl (3.4-5.0); MAGNESIUM 1.6 mg/dL (1.8-2.4)
[2022-03-18 11:28] LABS: CREATININE 0.7 mg/dL (0.55-1.3); PHOSPHOROUS 3.3 mg/dL (2.5-4.9)
[2022-03-18 11:30] LABS: BILIRUBIN,TOTAL 0.3 mg/dL (0.2-1); TOT PROT 4.6 g/dl (6.4-8.2)
[2022-03-18] MEDS: ACETAMINOPHEN 325 MG TABLET (FP) PO PRN (14:46)
[2022-03-18] MEDS ORDERED: PHENAZOPYRIDINE HCL 100 MG TABLET (FP) PO ONE (16:30)
[2022-03-18] MEDS: MIRTAZAPINE 15 MG TABLET (FP) PO SCH (21:27)
[2022-03-18] MEDS: ATORVASTATIN CA 10 MG TABLET (FP) PO SCH (21:28)
[2022-03-18] MEDS: SENNOSIDES 8.6MG TABLET (FP) PO SCH (21:30)
[2022-03-19] MEDS: OSELTAMIVIR PHOSPHATE 30 MG CAPSULE PO SCH (02:21)
[2022-03-19] MEDS ORDERED: MAGNESIUM OXIDE 400 MG TABLET (FP) PO ONE (09:30)
[2022-03-19] MEDS: levETIRAcetam 250 MG TABLET PO SCH (11:18)
[2022-03-19] MEDS: PANTOPRAZOLE 20 MG TABLET PO SCH (11:18)
[2022-03-19] MEDS: METOPROLOL TARTRATE 50 MG TABLET (FP) PO SCH (11:18)
[2022-03-19] MEDS: amLODIPine BESYLATE 10 MG TABLET (FP) PO SCH (11:23)
[2022-03-19] MEDS: TAMSULOSIN HCL 0.4 MG CAP PO SCH (11:23)
[2022-03-19 11:36] VITALS: BP 126/72; PULSE 97; RESP 18; TEMP 98.2
== END 2022-03-19 14:25 | disposition home health service (06) | DRG 669 ==
LOC: JER 09:31 → JERBED 22:35 → J7W 03-14 01:08 → J8W 03-14 11:28
PROVIDERS: ADMIT Internal Medicine; ATTEND Internal Medicine
PROC: 30233N1 Transfusion of Nonautologous Red Blood Cells into Peripheral Vein, Percutaneous Approach (ICD-10-PCS; 2022-03-14)
PROC: 0T7D8ZZ Dilation of Urethra, Via Natural or Artificial Opening Endoscopic (ICD-10-PCS; 2022-03-15)
PROC: 0TCB8ZZ Extirpation of Matter from Bladder, Via Natural or Artificial Opening Endoscopic (ICD-10-PCS; 2022-03-15)
PROC: 0TBB8ZZ Excision of Bladder, Via Natural or Artificial Opening Endoscopic (ICD-10-PCS; principal; 2022-03-15 14:30)
DX: R31.0 Gross hematuria (principal); D62 Acute posthemorrhagic anemia; S37.22XA Contusion of bladder, initial encounter; X58.XXXA Exposure to other specified factors, initial encounter; Y93.9 Activity, unspecified; Y92.89 Other specified places as the place of occurrence of the external cause; Y99.9 Unspecified external cause status; N39.0 Urinary tract infection, site not specified; J10.1 Influenza due to other identified influenza virus with other respiratory manifestations; I10 Essential (primary) hypertension; E78.5 Hyperlipidemia, unspecified; R30.0 Dysuria; K21.9 Gastro-esophageal reflux disease without esophagitis; K59.00 Constipation, unspecified; E87.6 Hypokalemia
CPT/HCPCS: 0241U-QW; 36415; 36430; 71045-TC-FY; 74177-TC; 80048; 80053; 80177; 81003; 83735; 84100; 85025; 85027; 85610; 85730; 86850; 86900; 86901; 86922; 87086; 87186; 88305-TC; 93005; 93010; 94010; 94760; 97116-GP; 97161-GP; 99285-25; P9058; Q9967

== ENCOUNTER 2022-05-27 04:44 | Day surgery (SDC) | payer BC, OTHER ==
[2022-05-23 13:28] VITALS: BMI 19.1
[2022-05-27] MEDS ORDERED: MIDAZOLAM HCL 2 MG/2 ML SINGLE DOSE VIAL ONE (10:31)
[2022-05-27] MEDS ORDERED: FENTANYL CITRATE/PF 50 MCG/ML VIAL ONE ×2 (10:31→13:18)
[2022-05-27] MEDS ORDERED: SODIUM CHLORIDE 500 ML IV ONE (13:00)
[2022-05-27] MEDS ORDERED: MIDAZOLAM HCL 2 MG/2 ML SINGLE DOSE VIAL IVPB ONE (13:31)
[2022-05-27 15:24] VITALS: BP 127/62; PULSE 70; RESP 18; TEMP 97.3
== END 2022-05-27 16:20 | disposition home or self-care (01) ==
LOC: JRADIR 04:44
PROVIDERS: ATTEND Urology
PROC: 0T9B30Z Drainage of Bladder with Drainage Device, Percutaneous Approach (ICD-10-PCS; principal; 2022-05-27)
DX: R33.8 Other retention of urine (principal)
CPT/HCPCS: 51102; A4358; C1729; C1769

== ENCOUNTER 2022-06-04 15:54 | Observation (INO) | payer OTHER ==
[2022-06-04] MEDS ORDERED: ACETAMINOPHEN 1000 MG/100 ML BAG IVPB ONE (16:36)
[2022-06-04] MEDS ORDERED: PHENAZOPYRIDINE HCL 100 MG TABLET (FP) PO ONE (16:54)
[2022-06-04] MEDS ORDERED: ACETAMINOPHEN INJECTION 100 ML IVPB ONE (17:22)
[2022-06-04] MEDS ORDERED: PHENAZOPYRIDINE HCL 100 MG TABLET (FP) ONE (17:22)
[2022-06-04 17:24] LABS: BASO % 1.4 % (0-2.0); EOS % 0.5 % (0-4.5); HEMATOCRIT 27.2 % (32.4-45.2); HEMOGLOBIN 8.9 GM/dL (10.7-15.3); LYMPH % 28.4 % (8-40); MCH 32.2 pg (25.7-33.7); MCHC 32.8 g/dl (32.0-36.0); MEAN CELL VOLUME 98.1 fl (80-96); MEAN PLT VOLUME 7.9 fl (7.5-11.1); MONO % 7.1 % (3.8-10.2); NEUT % 62.6 % (42.8-82.8); PLATELET COUNT 187 10^3/uL (134-434); RBC 2.77 M/mm3 (3.60-5.2); RDW 19.7 % (11.6-15.6); WHITE BLOOD COUNT 5.7 K/mm3 (4.0-10.0)
[2022-06-04 17:50] LABS: ALBUMIN 2.4 g/dl (3.4-5.0); CALCIUM 7.7 mg/dL (8.5-10.1)
[2022-06-04 17:53] LABS: CREATININE 0.6 mg/dL (0.55-1.3)
[2022-06-04 17:55] LABS: BILIRUBIN,TOTAL 0.2 mg/dL (0.2-1); TOT PROT 5.8 g/dl (6.4-8.2)
[2022-06-04 19:09] LABS: EPI CELLS 3 /uL (0-25.1); HYALINE CASTS 0 /uL (0-3.1); PH,URINE 6.5 (5.0-8.0); URINE APPEARANCE CLEAR; URINE BACTERIA 1981 /uL (0-1359); URINE BILIRUBIN NEGATIVE (NEGATIVE); URINE COLOR DK YELLOW; URINE GLUCOSE (UA) NEGATIVE (NEGATIVE); URINE KETONE NEGATIVE (NEGATIVE); URINE LEUK ESTERASE TRACE (NEGATIVE); URINE NITRITE POSITIVE (NEGATIVE); URINE PROTEIN NEGATIVE (NEGATIVE); URINE RBC 17 /uL (0-23.9); URINE UROBILINOGEN 0.2 mg/dL (0.2-1.0); URINE WBC 68 /uL (0-25.8)
[2022-06-04] MEDS ORDERED: CEFTRIAXONE 1,000 MG in DEXTROSE 5%-WATER - 50 ML IVPB ONE (19:33)
[2022-06-04] MEDS ORDERED: SULFAMETHOXAZOLE/TRIMETHOPRIM 800MG/160MG D.S. TABLET PO ONE (19:34)
[2022-06-04] MEDS ORDERED: SODIUM PHOSPHATE/NA BIPHOS 133 ML ENEMA PR ONE (20:36)
[2022-06-04] MEDS ORDERED: CEFTRIAXONE 1 GM/50 ML BAG ONE (21:58)
[2022-06-04] MEDS ORDERED: SULFAMETHOXAZOLE/TRIMETHOPRIM 800MG/160MG D.S. TABLET ONE (21:58)
[2022-06-04] MEDS ORDERED: LIDOCAINE HCL 2% JELLY 10 ML CARTRIDGE PR ONE (22:08)
[2022-06-04] MEDS ORDERED: LIDOCAINE HCL 2% JELLY 6 ML TP ONE (22:10)
[2022-06-04 23:21] LABS: RETICULOCYTES 1.83 % (0.5-1.5)
[2022-06-05] MEDS ORDERED: PHENAZOPYRIDINE HCL 100 MG TABLET (FP) PO ONE (01:29)
[2022-06-05] MEDS: METOPROLOL TARTRATE 50 MG TABLET (FP) PO SCH ×3 (02:31→21:09)
[2022-06-05] MEDS: levETIRAcetam 250 MG TABLET PO SCH ×3 (02:32→21:20)
[2022-06-05] MEDS: PANTOPRAZOLE 40 MG TABLET PO SCH ×3 (02:32→21:10)
[2022-06-05] MEDS ORDERED: LIDOCAINE HCL 2% JELLY 10 ML CARTRIDGE TP PRN ×2 (03:17→03:21)
[2022-06-05] MEDS ORDERED: ACETAMINOPHEN 1000 MG/100 ML BAG IVPB PRN (03:20)
[2022-06-05 04:39] VITALS: BMI 19.1
[2022-06-05 07:50] LABS: CHLORIDE 114 mmol/L (98-107); SODIUM 146 mmol/L (136-145)
[2022-06-05 07:55] LABS: CALCIUM 7.6 mg/dL (8.5-10.1)
[2022-06-05 07:56] LABS: ALBUMIN 2.3 g/dl (3.4-5.0); BLOOD UREA NITROGEN 7.6 mg/dL (7-18); CO2 25 mmol/L (21-32); GLUCOSE,RANDOM 86 mg/dL (74-106); MAGNESIUM 1.6 mg/dL (1.8-2.4)
[2022-06-05 07:59] LABS: CREATININE 0.5 mg/dL (0.55-1.3); PHOSPHOROUS 3.5 mg/dL (2.5-4.9); SGOT/AST 9 U/L (15-37); SGPT/ALT 11 U/L (13-61)
[2022-06-05 08:00] LABS: BILIRUBIN,TOTAL 0.2 mg/dL (0.2-1); TOT PROT 5.2 g/dl (6.4-8.2)
[2022-06-05 08:01] LABS: ALK PHOS 57 U/L (45-117)
[2022-06-05 08:27] LABS: HEMATOCRIT 25.9 % (32.4-45.2); HEMOGLOBIN 8.5 GM/dL (10.7-15.3); MCH 31.8 pg (25.7-33.7); MCHC 32.9 g/dl (32.0-36.0); MEAN CELL VOLUME 96.7 fl (80-96); MEAN PLT VOLUME 8.1 fl (7.5-11.1); PLATELET COUNT 205 10^3/uL (134-434); RBC 2.68 M/mm3 (3.60-5.2); RDW 19.3 % (11.6-15.6); WHITE BLOOD COUNT 5.5 K/mm3 (4.0-10.0)
[2022-06-05 08:35] LABS: ANION GAP 6 MMOL/L (8-16)
[2022-06-05] MEDS: amLODIPine BESYLATE 2.5 MG TABLET (FP) PO SCH (10:05)
[2022-06-05] MEDS: POLYETHYLENE GLYCOL (HEALTHYLAX) 3350 17 GM PACKET PO SCH ×2 (10:05→21:06)
[2022-06-05] MEDS: TAMSULOSIN HCL 0.4 MG CAP PO SCH (11:40)
[2022-06-05 11:48] LABS: CHLORIDE 113 mmol/L (98-107); SODIUM 145 mmol/L (136-145)
[2022-06-05 11:52] LABS: CALCIUM 7.9 mg/dL (8.5-10.1)
[2022-06-05 11:53] LABS: BLOOD UREA NITROGEN 7.5 mg/dL (7-18); CO2 25 mmol/L (21-32); GLUCOSE,RANDOM 79 mg/dL (74-106)
[2022-06-05 11:56] LABS: CREATININE 0.5 mg/dL (0.55-1.3)
[2022-06-05 12:07] LABS: ANION GAP 7 MMOL/L (8-16)
[2022-06-05] MEDS: POTASSIUM CHLORIDE TABS 20 MEQ TABLET.ER (FP) PO SCH (12:33)
[2022-06-05] MEDS: KCL 10 MEQ IVPB 10 MEQ/100 ML INFUS.BAG IVPB SCH ×2 (13:05→16:51)
[2022-06-05] MEDS ORDERED: POTASSIUM CHLORIDE ORAL LIQUID 20 MEQ/15 ML PO ONE (16:41)
[2022-06-05] MEDS ORDERED: MAGNESIUM 1GM/D5W 100ML - 100 ML IVPB IVPB ONE (16:42)
[2022-06-05] MEDS: ACETAMINOPHEN 325 MG TABLET (FP) PO PRN (20:38)
[2022-06-05] MEDS: ATORVASTATIN CA 10 MG TABLET (FP) PO SCH (21:06)
[2022-06-05] MEDS: SULFAMETHOXAZOLE/TRIMETHOPRIM 800MG/160MG D.S. TABLET PO SCH (21:06)
[2022-06-05] MEDS: MAGNESIUM OXIDE 400 MG TABLET (FP) PO SCH (21:10)
[2022-06-06] MEDS: PANTOPRAZOLE 40 MG TABLET PO SCH ×2 (09:09→22:49)
[2022-06-06] MEDS: POTASSIUM CHLORIDE TABS 20 MEQ TABLET.ER (FP) PO SCH (09:09)
[2022-06-06] MEDS: amLODIPine BESYLATE 2.5 MG TABLET (FP) PO SCH (09:09)
[2022-06-06] MEDS: MAGNESIUM OXIDE 400 MG TABLET (FP) PO SCH ×2 (09:10→22:49)
[2022-06-06] MEDS: METOPROLOL TARTRATE 50 MG TABLET (FP) PO SCH ×2 (09:10→22:48)
[2022-06-06] MEDS: levETIRAcetam 250 MG TABLET PO SCH ×2 (09:10→22:49)
[2022-06-06] MEDS: SULFAMETHOXAZOLE/TRIMETHOPRIM 800MG/160MG D.S. TABLET PO SCH ×2 (09:10→22:49)
[2022-06-06] MEDS: ACETAMINOPHEN 325 MG TABLET (FP) PO PRN (09:11)
[2022-06-06] MEDS: POLYETHYLENE GLYCOL (HEALTHYLAX) 3350 17 GM PACKET PO SCH ×3 (09:12→22:55)
[2022-06-06 09:23] LABS: BASO % 0.6 % (0-2.0); EOS % 1.2 % (0-4.5); HEMATOCRIT 28.8 % (32.4-45.2); HEMOGLOBIN 9.4 GM/dL (10.7-15.3); LYMPH % 28.5 % (8-40); MCH 31.6 pg (25.7-33.7); MCHC 32.7 g/dl (32.0-36.0); MEAN CELL VOLUME 96.8 fl (80-96); MEAN PLT VOLUME 8.2 fl (7.5-11.1); MONO % 7.9 % (3.8-10.2); NEUT % 61.8 % (42.8-82.8); PLATELET COUNT 208 10^3/uL (134-434); RBC 2.97 M/mm3 (3.60-5.2); RDW 19.4 % (11.6-15.6); WHITE BLOOD COUNT 5.2 K/mm3 (4.0-10.0)
[2022-06-06] MEDS: TAMSULOSIN HCL 0.4 MG CAP PO SCH (09:27)
[2022-06-06 09:54] LABS: CALCIUM 7.8 mg/dL (8.5-10.1)
[2022-06-06 09:55] LABS: BLOOD UREA NITROGEN 8.3 mg/dL (7-18)
[2022-06-06 09:58] LABS: CREATININE 0.6 mg/dL (0.55-1.3)
[2022-06-06] MEDS: LIDOCAINE HCL 5% TOP OINTMENT 50 GM TUBE TP SCH ×2 (13:32→22:49)
[2022-06-06] MEDS: ATORVASTATIN CA 10 MG TABLET (FP) PO SCH (22:49)
[2022-06-07] MEDS: amLODIPine BESYLATE 2.5 MG TABLET (FP) PO SCH (09:50)
[2022-06-07] MEDS: METOPROLOL TARTRATE 50 MG TABLET (FP) PO SCH ×2 (09:50→21:33)
[2022-06-07] MEDS: levETIRAcetam 250 MG TABLET PO SCH ×2 (09:50→21:33)
[2022-06-07] MEDS: TAMSULOSIN HCL 0.4 MG CAP PO SCH (09:50)
[2022-06-07] MEDS: PANTOPRAZOLE 40 MG TABLET PO SCH ×2 (09:51→21:33)
[2022-06-07] MEDS: SULFAMETHOXAZOLE/TRIMETHOPRIM 800MG/160MG D.S. TABLET PO SCH ×2 (09:51→21:33)
[2022-06-07] MEDS: POLYETHYLENE GLYCOL (HEALTHYLAX) 3350 17 GM PACKET PO SCH ×2 (09:52→21:33)
[2022-06-07] MEDS: MAGNESIUM OXIDE 400 MG TABLET (FP) PO SCH ×2 (09:53→21:33)
[2022-06-07] MEDS: LIDOCAINE HCL 5% TOP OINTMENT 50 GM TUBE TP SCH ×2 (10:04→21:34)
[2022-06-07] MEDS: POTASSIUM CHLORIDE TABS 20 MEQ TABLET.ER (FP) PO SCH (12:46)
[2022-06-07] MEDS: ACETAMINOPHEN 325 MG TABLET (FP) PO PRN (13:57)
[2022-06-07] MEDS: PATIENT'S OWN MEDICATION (NON-FORMULARY) (Mirabegron [Myrbetriq] 25 MG Tab.Er.24h) PO SCH ×2 (16:13→16:53)
[2022-06-07] MEDS: ATORVASTATIN CA 10 MG TABLET (FP) PO SCH (21:33)
[2022-06-08 09:03] LABS: BASO % 0.3 % (0-2.0); HEMATOCRIT 25.5 % (32.4-45.2); HEMOGLOBIN 8.4 GM/dL (10.7-15.3); LYMPH % 35.8 % (8-40); MCH 32.1 pg (25.7-33.7); MCHC 32.8 g/dl (32.0-36.0); MEAN CELL VOLUME 97.8 fl (80-96); MEAN PLT VOLUME 8.1 fl (7.5-11.1); NEUT % 54.9 % (42.8-82.8); PLATELET COUNT 196 10^3/uL (134-434); RBC 2.61 M/mm3 (3.60-5.2); RDW 18.9 % (11.6-15.6); WHITE BLOOD COUNT 5.1 K/mm3 (4.0-10.0)
[2022-06-08 09:27] LABS: ALBUMIN 2.5 g/dl (3.4-5.0); BLOOD UREA NITROGEN 11.4 mg/dL (7-18); CALCIUM 8.2 mg/dL (8.5-10.1)
[2022-06-08] MEDS: TAMSULOSIN HCL 0.4 MG CAP PO SCH (09:27)
[2022-06-08 09:30] LABS: CREATININE 0.9 mg/dL (0.55-1.3)
[2022-06-08 09:32] LABS: BILIRUBIN,TOTAL 0.4 mg/dL (0.2-1); TOT PROT 5.8 g/dl (6.4-8.2)
[2022-06-08] MEDS: POLYETHYLENE GLYCOL (HEALTHYLAX) 3350 17 GM PACKET PO SCH ×2 (09:33→22:55)
[2022-06-08] MEDS: levETIRAcetam 250 MG TABLET PO SCH ×2 (09:34→22:54)
[2022-06-08] MEDS: PANTOPRAZOLE 40 MG TABLET PO SCH ×2 (09:34→22:54)
[2022-06-08] MEDS: POTASSIUM CHLORIDE TABS 20 MEQ TABLET.ER (FP) PO SCH (09:34)
[2022-06-08] MEDS: METOPROLOL TARTRATE 50 MG TABLET (FP) PO SCH ×2 (09:34→22:55)
[2022-06-08] MEDS: amLODIPine BESYLATE 2.5 MG TABLET (FP) PO SCH (09:34)
[2022-06-08] MEDS: SULFAMETHOXAZOLE/TRIMETHOPRIM 800MG/160MG D.S. TABLET PO SCH ×2 (09:34→22:54)
[2022-06-08] MEDS: MAGNESIUM OXIDE 400 MG TABLET (FP) PO SCH ×2 (09:35→22:54)
[2022-06-08] MEDS: LIDOCAINE HCL 5% TOP OINTMENT 50 GM TUBE TP SCH ×2 (09:36→22:55)
[2022-06-08] MEDS: ACETAMINOPHEN 325 MG TABLET (FP) PO PRN (11:58)
[2022-06-08] MEDS: ATORVASTATIN CA 10 MG TABLET (FP) PO SCH (22:54)
[2022-06-09] MEDS: PANTOPRAZOLE 40 MG TABLET PO SCH (09:10)
[2022-06-09] MEDS: POTASSIUM CHLORIDE TABS 20 MEQ TABLET.ER (FP) PO SCH (09:10)
[2022-06-09] MEDS: TAMSULOSIN HCL 0.4 MG CAP PO SCH (09:11)
[2022-06-09] MEDS: levETIRAcetam 250 MG TABLET PO SCH (09:11)
[2022-06-09] MEDS: POLYETHYLENE GLYCOL (HEALTHYLAX) 3350 17 GM PACKET PO SCH (09:11)
[2022-06-09] MEDS: METOPROLOL TARTRATE 50 MG TABLET (FP) PO SCH (09:11)
[2022-06-09] MEDS: SULFAMETHOXAZOLE/TRIMETHOPRIM 800MG/160MG D.S. TABLET PO SCH (09:11)
[2022-06-09] MEDS: amLODIPine BESYLATE 2.5 MG TABLET (FP) PO SCH (09:11)
[2022-06-09] MEDS: MAGNESIUM OXIDE 400 MG TABLET (FP) PO SCH (09:11)
[2022-06-09] MEDS: LIDOCAINE HCL 5% TOP OINTMENT 50 GM TUBE TP SCH (09:12)
[2022-06-09 14:54] VITALS: BP 110/55; PULSE 89; RESP 18; TEMP 98.7
[2022-06-09] MEDS: ACETAMINOPHEN 325 MG TABLET (FP) PO PRN (15:49)
== END 2022-06-09 16:48 | disposition home or self-care (01) ==
LOC: JER 15:54 → JERBED 19:42 → J8W 23:57
PROVIDERS: ADMIT Internal Medicine; ATTEND Internal Medicine
PROC: 3E033NZ Introduction of Analgesics, Hypnotics, Sedatives into Peripheral Vein, Percutaneous Approach (ICD-10-PCS; principal; 2022-06-04)
PROC: 3E03329 Introduction of Other Anti-infective into Peripheral Vein, Percutaneous Approach (ICD-10-PCS; 2022-06-04)
DX: T83.510A Infection and inflammatory reaction due to cystostomy catheter, initial encounter (principal); G40.909 Epilepsy, unspecified, not intractable, without status epilepticus; J44.9 Chronic obstructive pulmonary disease, unspecified; G89.29 Other chronic pain; M54.50 Low back pain, unspecified; E11.9 Type 2 diabetes mellitus without complications; E78.5 Hyperlipidemia, unspecified; K59.00 Constipation, unspecified; R33.9 Retention of urine, unspecified; Z87.440 Personal history of urinary (tract) infections; N81.10 Cystocele, unspecified; Z87.891 Personal history of nicotine dependence; Z86.718 Personal history of other venous thrombosis and embolism; Y82.8 Other medical devices associated with adverse incidents
CPT/HCPCS: 36415; 51600; 73140-TC-RT-FY; 74177-TC; 74430-TC-FY; 80048; 80053; 81003; 82272; 82607; 82728; 82746; 83540; 83550; 83735; 84100; 85025; 85027; 85045; 87070; 87076; 87081; 87086; 87186; 87205; 93005; 93010; 96365; 96374; 99285-25; C9803-CS; G0378; Q9967; U0003; U0005

== ENCOUNTER → 2022-07-30 | Day surgery (SDC) | payer OTHER | END | disposition home or self-care (01) | LOC: JRADIR 11:42 | PROVIDERS: ATTEND Urology | PROC: 0T25X0Z Change Drainage Device in Kidney, External Approach (ICD-10-PCS; principal; 2022-07-30) | DX: Z43.6 Encounter for attention to other artificial openings of urinary tract (principal) | CPT/HCPCS: 50435; 75984-FY ==

== ENCOUNTER → 2022-12-05 | Day surgery (SDC) | payer OTHER | END | disposition home or self-care (01) | LOC: JRADIR 10:19 | PROVIDERS: ATTEND Urology | PROC: 0T2BX0Z Change Drainage Device in Bladder, External Approach (ICD-10-PCS; principal; 2022-12-05) | DX: Z43.5 Encounter for attention to cystostomy (principal); R33.8 Other retention of urine | CPT/HCPCS: 51705; 75984-FY; C1729; C1769 ==

== ENCOUNTER 2023-04-08 19:49 | Observation (INO) | payer OTHER ==
[2023-04-08 19:57] VITALS: BMI 24.7
[2023-04-08 22:19] LABS: BASO % 0.8 % (0-2.0); EOS % 1.3 % (0-4.5); HEMATOCRIT 40.1 % (32.4-45.2); HEMOGLOBIN 12.9 GM/dL (10.7-15.3); LYMPH % 43.7 % (8-40); MCH 30.1 pg (25.7-33.7); MCHC 32.2 g/dl (32.0-36.0); MEAN CELL VOLUME 93.6 fl (80-96); MEAN PLT VOLUME 8.4 fl (7.5-11.1); MONO % 7.3 % (3.8-10.2); NEUT % 46.9 % (42.8-82.8); PLATELET COUNT 221 10^3/uL (134-434); RBC 4.28 M/mm3 (3.60-5.2); RDW 15.2 % (11.6-15.6); WHITE BLOOD COUNT 6.1 K/mm3 (4.0-10.0)
[2023-04-08 22:28] LABS: POTASSIUM 4.4 mmol/L (3.5-5.1)
[2023-04-08 22:30] LABS: CALCIUM 9.7 mg/dL (8.5-10.1)
[2023-04-08 22:32] LABS: ALBUMIN 3.9 g/dl (3.4-5.0)
[2023-04-08 22:35] LABS: BILIRUBIN,TOTAL 0.2 mg/dL (0.2-1); CREATININE 0.8 mg/dL (0.55-1.3)
[2023-04-09] MEDS: ACETAMINOPHEN 1000 MG/100 ML BAG IVPB PRN ×2 (05:58→14:20)
[2023-04-09 07:51] LABS: HEMATOCRIT 36.9 % (32.4-45.2); HEMOGLOBIN 11.8 GM/dL (10.7-15.3); MCH 29.9 pg (25.7-33.7); MCHC 32.1 g/dl (32.0-36.0); MEAN CELL VOLUME 93.2 fl (80-96); MEAN PLT VOLUME 8.4 fl (7.5-11.1); PLATELET COUNT 194 10^3/uL (134-434); RBC 3.96 M/mm3 (3.60-5.2); RDW 15.2 % (11.6-15.6); WHITE BLOOD COUNT 6.3 K/mm3 (4.0-10.0)
[2023-04-09 08:18] LABS: POTASSIUM 4.1 mmol/L (3.5-5.1)
[2023-04-09 08:20] LABS: ALBUMIN 3.5 g/dl (3.4-5.0); BLOOD UREA NITROGEN 16.1 mg/dL (7-18)
[2023-04-09 08:24] LABS: BILIRUBIN,TOTAL 0.4 mg/dL (0.2-1); CREATININE 0.8 mg/dL (0.55-1.3); TOT PROT 7.2 g/dl (6.4-8.2)
[2023-04-09] MEDS ORDERED: amLODIPine BESYLATE 2.5 MG TABLET (FP) ONE (09:35)
[2023-04-09] MEDS ORDERED: APIXABAN 5 MG TABLET ONE (09:35)
[2023-04-09] MEDS: APIXABAN 5 MG TABLET PO SCH ×2 (09:47→21:45)
[2023-04-09] MEDS: amLODIPine BESYLATE 2.5 MG TABLET (FP) PO SCH (09:47)
[2023-04-09 09:49] VITALS: RESP 18
[2023-04-09] MEDS: TAMSULOSIN HCL 0.4 MG CAP PO SCH (22:47)
[2023-04-09] MEDS: ATORVASTATIN CA 10 MG TABLET (FP) PO SCH (22:47)
[2023-04-10] MEDS: ACETAMINOPHEN 1000 MG/100 ML BAG IVPB PRN (01:52)
[2023-04-10] MEDS ORDERED: FENTANYL CITRATE/PF 50 MCG/ML VIAL ONE ×2 (09:00→09:25)
[2023-04-10] MEDS ORDERED: FENTANYL CITRATE/PF 50 MCG/ML VIAL IVPUSH ONE ×2 (09:10→09:25)
[2023-04-10] MEDS: amLODIPine BESYLATE 2.5 MG TABLET (FP) PO SCH (10:17)
[2023-04-10 11:03] LABS: BASO % 0.3 % (0-2.0); EOS % 0.6 % (0-4.5); HEMATOCRIT 43.7 % (32.4-45.2); HEMOGLOBIN 13.9 GM/dL (10.7-15.3); LYMPH % 25.1 % (8-40); MCH 30.2 pg (25.7-33.7); MCHC 31.8 g/dl (32.0-36.0); MEAN CELL VOLUME 94.8 fl (80-96); MEAN PLT VOLUME 8.2 fl (7.5-11.1); MONO % 7.2 % (3.8-10.2); NEUT % 66.8 % (42.8-82.8); PLATELET COUNT 213 10^3/uL (134-434); RBC 4.61 M/mm3 (3.60-5.2); RDW 14.7 % (11.6-15.6); WHITE BLOOD COUNT 6.9 K/mm3 (4.0-10.0)
[2023-04-10 11:27] LABS: ALBUMIN 3.9 g/dl (3.4-5.0); CALCIUM 10.1 mg/dL (8.5-10.1)
[2023-04-10 11:29] LABS: CREATININE 0.9 mg/dL (0.55-1.3)
[2023-04-10 11:32] LABS: BILIRUBIN,TOTAL 0.5 mg/dL (0.2-1); TOT PROT 7.9 g/dl (6.4-8.2)
[2023-04-10] MEDS ORDERED: ACETAMINOPHEN 1000 MG/100 ML BAG IVPB ONE (14:37)
[2023-04-10 17:59] LABS: EPI CELLS 9 /uL (0-25.1); HYALINE CASTS 1 /uL (0-3.1); PH,URINE 5.5 (5.0-8.0); URINE APPEARANCE TURBID; URINE BACTERIA >9,000 /uL (0-1359); URINE BILIRUBIN NEGATIVE (NEGATIVE); URINE COLOR YELLOW; URINE GLUCOSE (UA) NEGATIVE (NEGATIVE); URINE KETONE TRACE (NEGATIVE); URINE LEUK ESTERASE 2+ (NEGATIVE); URINE NITRITE NEGATIVE (NEGATIVE); URINE PROTEIN 2+ (NEGATIVE); URINE RBC 178 /uL (0-23.9); URINE UROBILINOGEN 0.2 mg/dL (0.2-1.0); URINE WBC 4799 /uL (0-25.8)
[2023-04-10] MEDS ORDERED: CEFTRIAXONE 1 GM in DEXTROSE 5%-WATER - 50 ML IVPB SCH (20:00)
[2023-04-10] MEDS ORDERED: cefTRIAXone SODIUM 1 GM VIAL ONE (21:06)
[2023-04-10] MEDS: ATORVASTATIN CA 10 MG TABLET (FP) PO SCH (21:27)
[2023-04-10] MEDS: TAMSULOSIN HCL 0.4 MG CAP PO SCH (21:27)
[2023-04-10] MEDS: CEFTRIAXONE 1 GM in DEXTROSE 5%-WATER - 50 ML IVPB SCH (21:28)
[2023-04-11] MEDS: FAMOTIDINE 20 MG TABLET PO PRN ×2 (00:38→15:29)
[2023-04-11] MEDS: CEFTRIAXONE 1 GM in DEXTROSE 5%-WATER - 50 ML IVPB SCH (09:13)
[2023-04-11] MEDS: amLODIPine BESYLATE 2.5 MG TABLET (FP) PO SCH (09:15)
[2023-04-11 11:08] LABS: BASO % 0.4 % (0-2.0); HEMATOCRIT 37.7 % (32.4-45.2); HEMOGLOBIN 12.3 GM/dL (10.7-15.3); LYMPH % 30.5 % (8-40); MCH 30.8 pg (25.7-33.7); MCHC 32.6 g/dl (32.0-36.0); MEAN CELL VOLUME 94.7 fl (80-96); MEAN PLT VOLUME 8.7 fl (7.5-11.1); MONO % 6.6 % (3.8-10.2); NEUT % 61.5 % (42.8-82.8); PLATELET COUNT 192 10^3/uL (134-434); RBC 3.98 M/mm3 (3.60-5.2); RDW 14.5 % (11.6-15.6); WHITE BLOOD COUNT 6.4 K/mm3 (4.0-10.0)
[2023-04-11 11:21] LABS: POTASSIUM 4.3 mmol/L (3.5-5.1)
[2023-04-11] MEDS: KETOROLAC TROMETHAMINE 15 MG/ML VIAL IM PRN (11:30)
[2023-04-11 11:32] LABS: ALBUMIN 3.4 g/dl (3.4-5.0); BLOOD UREA NITROGEN 25.4 mg/dL (7-18); CALCIUM 9.3 mg/dL (8.5-10.1)
[2023-04-11 11:33] LABS: BILIRUBIN,TOTAL 0.4 mg/dL (0.2-1); TOT PROT 7.3 g/dl (6.4-8.2)
[2023-04-11 11:34] LABS: CREATININE 1.2 mg/dL (0.55-1.3); PHOSPHOROUS 4.4 mg/dL (2.5-4.9)
[2023-04-11] MEDS: TAMSULOSIN HCL 0.4 MG CAP PO SCH (21:17)
[2023-04-11] MEDS: ATORVASTATIN CA 10 MG TABLET (FP) PO SCH (21:17)
[2023-04-12] MEDS: ACETAMINOPHEN 325 MG TABLET (FP) PO PRN ×2 (02:09→14:42)
[2023-04-12] MEDS: KETOROLAC TROMETHAMINE 15 MG/ML VIAL IM PRN (04:21)
[2023-04-12] MEDS: amLODIPine BESYLATE 2.5 MG TABLET (FP) PO SCH (09:13)
[2023-04-12] MEDS: CEFTRIAXONE 1 GM in DEXTROSE 5%-WATER - 50 ML IVPB SCH (09:13)
[2023-04-12 09:46] LABS: BASO % 0.3 % (0-2.0); EOS % 1.8 % (0-4.5); HEMATOCRIT 35.9 % (32.4-45.2); LYMPH % 40.1 % (8-40); MCH 30.9 pg (25.7-33.7); MCHC 33.4 g/dl (32.0-36.0); MEAN CELL VOLUME 92.7 fl (80-96); MEAN PLT VOLUME 8.5 fl (7.5-11.1); MONO % 7.9 % (3.8-10.2); NEUT % 49.9 % (42.8-82.8); PLATELET COUNT 177 10^3/uL (134-434); RBC 3.87 M/mm3 (3.60-5.2); RDW 14.7 % (11.6-15.6); WHITE BLOOD COUNT 5.2 K/mm3 (4.0-10.0)
[2023-04-12 10:00] LABS: POTASSIUM 4.4 mmol/L (3.5-5.1)
[2023-04-12 10:07] LABS: BLOOD UREA NITROGEN 27.4 mg/dL (7-18); CALCIUM 8.8 mg/dL (8.5-10.1)
[2023-04-12 10:08] LABS: ALBUMIN 3.4 g/dl (3.4-5.0)
[2023-04-12 10:10] LABS: CREATININE 1.1 mg/dL (0.55-1.3); PHOSPHOROUS 4.8 mg/dL (2.5-4.9)
[2023-04-12 10:12] LABS: BILIRUBIN,TOTAL 0.3 mg/dL (0.2-1); TOT PROT 7.1 g/dl (6.4-8.2)
[2023-04-12] MEDS: TAMSULOSIN HCL 0.4 MG CAP PO SCH (21:49)
[2023-04-12] MEDS: ATORVASTATIN CA 10 MG TABLET (FP) PO SCH (21:49)
[2023-04-12] MEDS: FAMOTIDINE 20 MG TABLET PO PRN (21:49)
[2023-04-13] MEDS: ACETAMINOPHEN 325 MG TABLET (FP) PO PRN ×2 (00:26→08:01)
[2023-04-13] MEDS: amLODIPine BESYLATE 2.5 MG TABLET (FP) PO SCH (10:10)
[2023-04-13] MEDS: CEFTRIAXONE 1 GM in DEXTROSE 5%-WATER - 50 ML IVPB SCH (10:16)
[2023-04-13] MEDS ORDERED: KETOROLAC TROMETHAMINE 15 MG/ML VIAL IVPUSH ONE (17:00)
[2023-04-13] MEDS ORDERED: PIPERACILLIN/TAZOB 3.375 GM 3.375 GM in DEXTROSE 5%-WATER - 50 ML IVPB SCH (18:00)
[2023-04-13] MEDS: PIPERACILLIN/TAZOB 3.375 GM 3.375 GM in DEXTROSE 5%-WATER - 50 ML IVPB SCH (18:22)
[2023-04-13] MEDS: ATORVASTATIN CA 10 MG TABLET (FP) PO SCH (21:19)
[2023-04-13] MEDS: TAMSULOSIN HCL 0.4 MG CAP PO SCH (21:19)
[2023-04-14] MEDS: PIPERACILLIN/TAZOB 3.375 GM 3.375 GM in DEXTROSE 5%-WATER - 50 ML IVPB SCH ×2 (01:21→10:40)
[2023-04-14] MEDS: ACETAMINOPHEN 325 MG TABLET (FP) PO PRN (08:44)
[2023-04-14] MEDS: amLODIPine BESYLATE 2.5 MG TABLET (FP) PO SCH (10:40)
[2023-04-14 14:13] VITALS: BP 139/72; PULSE 105; TEMP 98.2
== END 2023-04-14 18:40 | disposition home or self-care (01) ==
LOC: JER 19:49 → JERBED 21:34 → J6S 04-09 13:54
PROVIDERS: ADMIT Internal Medicine; ATTEND Internal Medicine
PROC: 0T2BX0Z Change Drainage Device in Bladder, External Approach (ICD-10-PCS; principal; 2023-04-08)
PROC: 3E033NZ Introduction of Analgesics, Hypnotics, Sedatives into Peripheral Vein, Percutaneous Approach (ICD-10-PCS; 2023-04-08)
PROC: 3E03329 Introduction of Other Anti-infective into Peripheral Vein, Percutaneous Approach (ICD-10-PCS; 2023-04-08)
PROC: 3E0233Z Introduction of Anti-inflammatory into Muscle, Percutaneous Approach (ICD-10-PCS; 2023-04-08)
PROC: 3E0333Z Introduction of Anti-inflammatory into Peripheral Vein, Percutaneous Approach (ICD-10-PCS; 2023-04-08)
DX: T83.9XXA Unspecified complication of genitourinary prosthetic device, implant and graft, initial encounter (principal); I10 Essential (primary) hypertension; E78.5 Hyperlipidemia, unspecified; N81.10 Cystocele, unspecified; Z87.440 Personal history of urinary (tract) infections; R33.8 Other retention of urine; Z79.01 Long term (current) use of anticoagulants; Z87.891 Personal history of nicotine dependence; Z86.718 Personal history of other venous thrombosis and embolism; X58.XXXA Exposure to other specified factors, initial encounter; Y93.89 Activity, other specified; Y92.89 Other specified places as the place of occurrence of the external cause
CPT/HCPCS: 36415; 51102; 76856-TC; 80053; 81003; 83735; 84100; 85025; 85027; 87086; 87186; 96365; 96367; 96372; 96375; 96376; 97116-GP; 97162-GP; 99285-25; G0378

== ENCOUNTER → 2023-08-11 | Day surgery (SDC) | payer OTHER | END | disposition home or self-care (01) | LOC: JRADIR 10:08 | PROVIDERS: ATTEND Urology | PROC: 0T2BX0Z Change Drainage Device in Bladder, External Approach (ICD-10-PCS; principal; 2023-08-11) | DX: R32 Unspecified urinary incontinence (principal) | CPT/HCPCS: 51705; 75984-FY ==

== ENCOUNTER → 2023-12-30 | Day surgery (SDC) | payer OTHER | END | disposition home or self-care (01) | LOC: JRADIR 09:49 | PROVIDERS: ATTEND Urology | PROC: 0T2BX0Z Change Drainage Device in Bladder, External Approach (ICD-10-PCS; principal; 2023-12-30) | DX: T83.098A Other mechanical complication of other urinary catheter, initial encounter (principal); Y73.1 Therapeutic (nonsurgical) and rehabilitative gastroenterology and urology devices associated with adverse incidents; Y92.9 Unspecified place or not applicable | CPT/HCPCS: 51705; 75984-FY ==

== ENCOUNTER → 2024-05-20 | Day surgery (SDC) | payer OTHER | END | disposition home or self-care (01) | LOC: JRADIR 09:53 | PROVIDERS: ATTEND Urology | PROC: 0T2BX0Z Change Drainage Device in Bladder, External Approach (ICD-10-PCS; principal; 2024-05-20) | DX: N31.9 Neuromuscular dysfunction of bladder, unspecified (principal) | CPT/HCPCS: 51705; 75984-FY ==

== ENCOUNTER 2024-06-20 19:33 | Emergency (ER) | payer OTHER ==
[2024-06-20 20:19] VITALS: BP 134/65; PULSE 86; RESP 17; TEMP 97.9; BMI 24.3
== END 2024-06-20 21:43 | disposition home or self-care (01) ==
LOC: JER 19:33
DX: T83.091A Other mechanical complication of indwelling urethral catheter, initial encounter (principal); R33.9 Retention of urine, unspecified; R10.30 Lower abdominal pain, unspecified
CPT/HCPCS: 99282-25

== ENCOUNTER → 2024-10-13 | Day surgery (SDC) | payer OTHER | END | disposition home or self-care (01) | LOC: JRADIR 09:23 | PROVIDERS: ATTEND Urology | PROC: 0T2BX0Z Change Drainage Device in Bladder, External Approach (ICD-10-PCS; principal; 2024-10-13) | DX: Z43.5 Encounter for attention to cystostomy (principal) | CPT/HCPCS: 51705; 75984-FY ==

== ENCOUNTER 2024-11-18 16:22 | Observation (INO) | payer OTHER ==
[2024-11-18 16:47] VITALS: BMI 25.0
[2024-11-18] MEDS ORDERED: LIDOCAINE HCL 2% JELLY 11 ML TP ONE (18:20)
[2024-11-18] MEDS ORDERED: ACETAMINOPHEN 500 MG TABLET (FP) ONE (19:28)
[2024-11-18] MEDS: ACETAMINOPHEN 500 MG TABLET (FP) PO ONE (19:33)
[2024-11-18] MEDS: ACETAMINOPHEN 1000 MG/100 ML BAG IVPB ONE (19:51)
[2024-11-18 20:29] LABS: EPI CELLS 3 /uL (0-25.1); HYALINE CASTS 0 /uL (0-3.1); URINE APPEARANCE CLEAR; URINE BACTERIA 104 /uL (0-1359); URINE BILIRUBIN NEGATIVE (NEGATIVE); URINE COLOR YELLOW; URINE GLUCOSE (UA) NEGATIVE (NEGATIVE); URINE KETONE NEGATIVE (NEGATIVE); URINE LEUK ESTERASE TRACE (NEGATIVE); URINE NITRITE NEGATIVE (NEGATIVE); URINE PROTEIN 2+ (NEGATIVE); URINE RBC 8 /uL (0-23.9); URINE UROBILINOGEN 0.2 mg/dL (0.2-1.0); URINE WBC 44 /uL (0-25.8)
[2024-11-18 21:10] LABS: ABSOLUTE IMMATURE GRANULOCYTES 0.04 x10^3/uL (0.0-0.031); BASOPHILS # 0.03 x10^3/uL (0.01-0.08); EOSINOPHIL % 0.3 % (0.7-5.8); EOSINOPHILS # 0.03 x10^3/uL (0.04-0.36); MCHC 31.9 g/dl (32.2-35.5); MEAN CELL VOLUME 92.8 fl (79.4-94.8); MEAN PLT VOLUME 10.4 fl (9.4-12.3); MONOCYTE # 0.59 x10^3/uL (0.24-0.86); MONOCYTE % 5.0 % (4.7-12.5); RDW 14.6 % (12.5-17.0)
[2024-11-18 21:21] LABS: CO2 25.0 mmol/L (21-32); GLUCOSE,RANDOM 120.0 mg/dL (74-106)
[2024-11-18 21:25] LABS: CREATININE 0.9 mg/dL (0.55-1.3); SGOT/AST 17.0 U/L (15-37); SGPT/ALT 23.0 U/L (13-61)
[2024-11-18 21:26] LABS: TOT PROT 7.4 g/dl (6.4-8.2)
[2024-11-18 21:27] LABS: ALK PHOS 81.0 U/L (45-117)
[2024-11-19] MEDS: ACETAMINOPHEN 1000 MG/100 ML BAG IVPB PRN (00:43)
[2024-11-19 08:12] LABS: INR 1.31 (0.83-1.09); PROTHROMBIN TIME (PATIENT) 14.3 SEC (9.7-13.0)
[2024-11-19 08:13] LABS: ABSOLUTE IMMATURE GRANULOCYTES 0.01 x10^3/uL (0.0-0.031); BASOPHILS # 0.03 x10^3/uL (0.01-0.08); EOSINOPHIL % 0.5 % (0.7-5.8); EOSINOPHILS # 0.04 x10^3/uL (0.04-0.36); MCHC 32.6 g/dl (32.2-35.5); MEAN CELL VOLUME 90.4 fl (79.4-94.8); MEAN PLT VOLUME 10.8 fl (9.4-12.3); MONOCYTE # 0.57 x10^3/uL (0.24-0.86); MONOCYTE % 7.7 % (4.7-12.5); RDW 14.1 % (12.5-17.0)
[2024-11-19 09:15] LABS: CO2 23.0 mmol/L (21-32); GLUCOSE,RANDOM 82.0 mg/dL (74-106)
[2024-11-19 09:18] LABS: CREATININE 0.8 mg/dL (0.55-1.3)
[2024-11-19] MEDS: CHOLECALCIFEROL (VIT D3) 5000 UNITS (125 MCG) CAP PO SCH (09:54)
[2024-11-19] MEDS: amLODIPine BESYLATE 2.5 MG TABLET (FP) PO SCH (09:55)
[2024-11-19] MEDS: CYANOCOBALAMIN 1,000 MCG TABLET (FP) PO SCH (09:55)
[2024-11-19] MEDS: METOPROLOL TARTRATE 50 MG TABLET (FP) PO SCH (09:55)
[2024-11-19] MEDS: TAMSULOSIN HCL 0.4 MG CAP PO SCH (09:55)
[2024-11-19] MEDS ORDERED: PATIENT'S OWN MEDICATION (NON-FORMULARY) (Vibegron [Gemtesa] 75 MG Tablet) PO SCH (10:00)
[2024-11-19] MEDS: ENOXAPARIN NA (PORCINE) 60 MG/0.6 ML DISP.SYRIN SQ SCH (11:39)
[2024-11-19] MEDS: ATORVASTATIN CA 10 MG TABLET (FP) PO SCH (21:11)
[2024-11-20] MEDS ORDERED: SIMETHICONE 80 MG TAB.CHEW (FP) PO PRN (09:56)
[2024-11-21 09:18] LABS: ABSOLUTE IMMATURE GRANULOCYTES 0.01 x10^3/uL (0.0-0.031); BASOPHILS # 0.03 x10^3/uL (0.01-0.08); EOSINOPHIL % 1.4 % (0.7-5.8); EOSINOPHILS # 0.11 x10^3/uL (0.04-0.36); MCHC 31.9 g/dl (32.2-35.5); MEAN CELL VOLUME 92.7 fl (79.4-94.8); MEAN PLT VOLUME 11.2 fl (9.4-12.3); MONOCYTE # 0.65 x10^3/uL (0.24-0.86); MONOCYTE % 8.4 % (4.7-12.5); RDW 14.5 % (12.5-17.0)
[2024-11-21 10:05] LABS: INR 1.16 (0.83-1.09); PROTHROMBIN TIME (PATIENT) 12.6 SEC (9.7-13.0)
[2024-11-21] MEDS: SODIUM CHLORIDE 1,000 ML IV STA (10:21)
[2024-11-21 10:35] LABS: CO2 24.0 mmol/L (21-32); GLUCOSE,RANDOM 93.0 mg/dL (74-106)
[2024-11-21 10:39] LABS: CREATININE 0.87 mg/dL (0.55-1.3)
[2024-11-21] MEDS ORDERED: FENTANYL CITRATE/PF 50 MCG/ML VIAL ONE (12:14)
[2024-11-21] MEDS ORDERED: MIDAZOLAM HCL 2 MG/2 ML SINGLE DOSE VIAL ONE (12:17)
[2024-11-21] MEDS: FENTANYL CITRATE/PF 50 MCG/ML VIAL IVPUSH ONE (12:18)
[2024-11-21] MEDS: MIDAZOLAM HCL 2 MG/2 ML SINGLE DOSE VIAL IVPUSH ONE (12:21)
[2024-11-21] MEDS: ACETAMINOPHEN 500 MG TABLET (FP) PO ONE (14:05)
[2024-11-21 15:45] VITALS: BP 149/69; PULSE 89; RESP 18; TEMP 98.4
== END 2024-11-21 16:30 | disposition home or self-care (01) ==
LOC: JER 16:22 → JERBED 18:44 → INTOOBSV 18:44 → UNDOADMOB 18:44 → J5S 22:35 → JERBED 22:35 → J5S 11-19 14:58 → JERBED 11-19 15:13
PROVIDERS: ADMIT Internal Medicine; ATTEND Internal Medicine
PROC: 3E033NZ Introduction of Analgesics, Hypnotics, Sedatives into Peripheral Vein, Percutaneous Approach (ICD-10-PCS; 2024-11-19)
PROC: 3E023GC Introduction of Other Therapeutic Substance into Muscle, Percutaneous Approach (ICD-10-PCS; 2024-11-19)
PROC: 3E03329 Introduction of Other Anti-infective into Peripheral Vein, Percutaneous Approach (ICD-10-PCS; 2024-11-19)
PROC: 3E0337Z Introduction of Electrolytic and Water Balance Substance into Peripheral Vein, Percutaneous Approach (ICD-10-PCS; 2024-11-19)
PROC: 0T2BX0Z Change Drainage Device in Bladder, External Approach (ICD-10-PCS; principal; 2024-11-21)
PROC: 3C1ZX8Z Irrigation of Indwelling Device using Irrigating Substance, External Approach (ICD-10-PCS; 2024-11-21)
DX: Z46.6 Encounter for fitting and adjustment of urinary device (principal); N32.9 Bladder disorder, unspecified; E78.5 Hyperlipidemia, unspecified; I10 Essential (primary) hypertension; G40.909 Epilepsy, unspecified, not intractable, without status epilepticus; Z79.01 Long term (current) use of anticoagulants; Z86.718 Personal history of other venous thrombosis and embolism; Z87.440 Personal history of urinary (tract) infections; Z87.891 Personal history of nicotine dependence
CPT/HCPCS: 36415; 51102; 80048; 80053; 81003; 85025; 85610; 86850; 86900; 86901; 87086; 93005; 93010; 96365; 96372; 96375; 99285-25; G0378